=== PATIENT | male | born 1970 | race Hispanic/Latino ===

== ENCOUNTER 2022-07-27 10:42 | Emergency (ER) | payer OTHER ==
--- OUTSIDE RECORDS SUMMARY | 2022-07-27 10:47 | XMS REPORT | Continuity of Care Document ---
:1970 Author Organization [facility] t Address [address] [place] [address] Care Team Providers Name Role Phone PCP, PATIENT DOES NOT HAVE A Primary Care Physician Unavaila JULIANA Marvin Attending Clinician Unavailable Juliana Dias Attending Clinician JULIANA DOBSON Admitting Clinician Unavailable Problems Condition Condition Condition Status Onset Resolution Last Treating Co mments Source Name Details Category Date Date Treatment Clinician Date No known No known Disease Unive rs active active ity of problems problems [facility] Allergies, Adverse Reactions, Alerts Allergy Allergy Status Severity Reaction(s) Onset Inactive Treating Comm ents Source Name Type Date Date Clinician NO KNOWN Drug Active Univers ALLERGIE Class ity of [facility] Social History Social Habit Start Date Stop Date Quantity Comments Source Exposure to 2022-06-26 2022-07-06 Not sure [facility] SARS-CoV-2 (event) 00:00:00 11:32:00 Medica l Branch Sex Assigned At [birth year] [facility] 00:00:00 00:00:00 [facility] [place] Smoking Status Start Date Stop Date Source Tobacco smoking consumption [facility] Branch Medications Ordered Filled Start Stop Current Ordering Indication Dosage Frequency Signature Comments Components Source Medication Medication Date Date Medication? Clinician (SIG) Name Name ketorolac 2021-09 30mg 30 mg, Unive rs (TORADOL) 0-16 - Slow IV ity of injection 16:45: 16:36 [place], [place] 30 mg 00 :00 ONCE, 1 Medical dose, [place] Branch 07/06/22 at 1145, Routine No known 2021-09 No No known Unive rs medications 0-16 medication it y of 11:20: s [address] Vital Signs Vital Name Observation Time Observation Value Comments Source Systolic blood 2022-07-06 16:17:00 156 mm[Hg] [facility] pressure [facility] Diastolic blood 2022-07-06 16:17:00 100 mm[Hg] [facility] Heart rate 2022-07-06 16:17:00 73 /min [facility] Body temperature 2022-07-06 16:17:00 37.06 Carmita [facility] Respiratory rate 2022-07-06 16:17:00 18 /min [facility] Body weight 2022-07-06 16:17:00 140.615 kg [facility] Oxygen saturation in 2022-07-06 16:17:00 99 /min [facility] Arterial blood by [facility] Pulse oximetry Branch Procedures Procedure Date / Time Performed Performing Clinician Alexus e CT ABDOMEN PELVIS WO 2022-07-06 16:45:55 Juliana Dobson [facility] CONTRAST [facility] LIPASE 2022-07-06 16:25:00 Juliana Dobson [facility] COMP. METABOLIC PANEL 2022-07-06 16:25:00 Juliana Dobson [facility] ([id number]) [facility] CBC WITH DIFF 2022-07-06 16:25:00 Juliana Dobson [facility] URINALYSIS 2022-07-06 16:25:00 Juliana Dobson [facility] NOTICE OF PRIVACY 2022-07-06 16:08:39 Doctor Unassigned, No [facility] CONSENT/REFUSAL FOR 2022-07-06 16:07:48 [facility] [place] TREATMENT Encounters Start End Encounter Admission Attending Care Care Encounter Source Date/Time Date/Time Type Type Clinicians Facility Department ID 2022-07-06 2022-07-06 Emergency X RALPH DOBSON ERT [id number] Univers 11:22:00 12:49:00 JULIANA child [facility] 2022-07-06 2022-07-06 Emergency RALPH Dobson [id number] Univers 11:22:00 12:49:00 Juliana DUBOSE [id number] i ty [facility] [id number] [facility] [id number] [facility] 084 Branch Results Test Description Test Time Test Comments Results Result Comments Source Complete Metabolic Panel 2022-07-06 17:00:17 Test Item Value Reference Range Interpretation Comme nts NA (test code = 1957403027) 137 mmol/L 135-145 K (test code = 5579170251) 4.7 mmol/L 3.5-5 CL (test code = 9679441009) 98 mmol/L 98-108 CO2 TOTAL (test code = 28 mmol/L 23-31 0675412620) AGAP (test code = 3613498939) 2-16 BUN (test code = 3256358644) 12 mg/dL 7-23 GLUCOSE (test code = 2594686187) 100 mg/dL 70-110 CREATININE (test code = 1.09 mg/dL 0.6-1.25 6755997874) TOTAL BILI (test code = 0.6 mg/dL 0.1-1.7 8577689253) CALCIUM (test code = 9259911947) 9.6 mg/dL 8.6-10.6 T PROTEIN (test code = 7.9 g/dL 6.3-8.2 9803740120) ALBUMIN (test code = 3025323484) 4.9 g/dL 3.5-5 ALK PHOS (test code = 8817871730) 88 U/L 34-122 ALTv (test code = 1742-6) 31 U/L 5-50 AST(SGOT) (test code = 38 U/L 13-40 6524870743) eGFR (test code = 4417824116) mL/min/1.73m2 PAUL (test code = PAUL) Association of Glomerular Filtration Rate (GFR) and Staging of Kidney Disease* + +--------- + ----+| GFR (mL/min/1.73 m2) ?| With Kidney Damage ?| ?Without Kidney Damage+ +--- + +| ?>90 ?| ?Stage one ?| ? Normal ?+ +-------- + -----+| ?60-89 ?| ?Stage two ?| ? Decreased GFR ? + +--------- + ----+| ?30-59 ?| ?Stage three ?| ? Stage three ? + +--------- + ----+| ?15-29 ?| ?Stage four ? | ? Stage four ?+ +-------- + -----+| ?<15 (or dialysis) ? ?| ?Stage five ? | ? Stage five ?+ +-------- + -----+ *Each stage assumes the associated GFR level has been in effect for at least three months. ?Stages 1 to 5, with or without kidney disease, indicate chronic kidney disease. Notes: Determination of stages one and two (with eGFR >59mL/min/1.73 m2) requires estimation of kidney damage for at least three months as defined by structural or functional abnormalities of the kidney, manifested by either:Pathological abnormalities or Markers of kidney damage (including abnormalities in the composition of the blood or urine or abnormalities in imaging tests). [facility], [id number] 16:59:57 Test Item Value Reference Range Interpretation Comments LIPASE (test code = 0543335261) 48 U/L 0-220 Lab Interpretation (test code = Normal 70494-2) [facility] with [id number] 16:47:57 Test Item Value Reference Range Interpretation Comments WBC (test code = See_Comment [Automated 0290-2) message] The sy stem which generated this result transmitted reference range : 4.20 - 10.70 10*3/?L. The reference range was not used to interpret this result as normal/abnormal . RBC (test code = See_Comment H [Automated 838-8) message] The sy stem which generated this result transmitted reference range : 4.26 - 5.52 10*6/?L. The reference range was not used to interpret this result as normal/abnormal . HGB (test code = 16.4 g/dL 12.2-16.4 718-7) HCT (test code = 49.5 % 38.4-49.3 H 4544-3) MCV (test code = 87.0 fL 81.7-95.6 787-2) MCH (test code = 28.8 pg 26.1-32.7 785-6) MCHC (test code = 33.1 g/dL 31.2-35 786-4) RDW-SD (test code = 45.4 fL 38.5-51.6 08550-7) RDW-CV (test code = 14.2 % 12.1-15.4 788-0) PLT (test code = See_Comment [Automated 777-3) message] The sy stem which generated this result transmitted reference range : 150 - 328 10*3/ ?L. The reference r anuradha was not used to interpret this result as normal/abnormal . MPV (test code = 10.3 fL 9.8-13 99831-1) NRBC/100 WBC (test See_Comment [Automat ed code = 0816276932) message] The system which generated this result transmitted reference range : 0.0 - 10.0 /100 WBCs. The refer ence range was not u sed to interpret th is result as normal/abnormal . NRBC x10^3 (test code See_Comment [Auto mated = 1740740478) message] The s ystem which generated this result transmitted reference range : 10*3/?L. The reference range was not used to interpret this result as normal/abnormal . GRAN MAT (NEUT) % 61.9 % (test code = 770-8) IMM GRAN % (test code 0.50 % = 6740938665) LYMPH % (test code = 22.5 % 736-9) MONO % (test code = 11.8 % 5905-5) EOS % (test code = 2.7 % 713-8) BASO % (test code = 0.6 % 706-2) GRAN MAT x10^3(ANC) 4.08 10*3/uL 1.99-6.95 (test code = 2663258139) IMM GRAN x10^3 (test 0.03 10*3/uL 0-0.06 code = 9194988406) LYMPH x10^3 (test code 1.48 10*3/uL 1.09-3.23 = 731-0) MONO x10^3 (test code 0.78 10*3/uL 0.36-1.02 = 742-7) EOS x10^3 (test code = 0.18 10*3/uL 0.06-0.53 711-2) BASO x10^3 (test code 0.04 10*3/uL 0.01-0.09 = 704-7) Lab Interpretation Abnormal (test code = 82147-0) [facility]"
[2022-07-27 12:04] LABS: Urine Blood Negative (Negative); Urine Glucose Negative (Negative); Urine Protein 2+ (Negative); Urine Specific Gravity >=1.030 (1.005-1.030); Urine pH 5.5 (5.0-7.0)
[2022-07-27 13:13] LABS: Barbiturates NEGATIVE (NEGATIVE); Benzodiazepines NEGATIVE (NEGATIVE); Cocaine NEGATIVE (NEGATIVE); METHAMPHETAM NEGATIVE (NEGATIVE); Methadone NEGATIVE (NEGATIVE); Opiates NEGATIVE (NEGATIVE); Phencyclidine NEGATIVE (NEGATIVE); THC Cannibis NEGATIVE (NEGATIVE)
--- NOTE | 2022-07-27 13:47 | EDPHYS ---
Physician Documentation [facility] Name: Missael Quinteros Age: 51 yrs Sex: Male : 1970 Arrival Date: 07/27/2022 Time: 10:46 Bed 17 Private MD: ED Physician Harshil Campos HPI: 07/27 13:46 This 51 yrs old Male presents to ER via Ambulatory with complaints of Allergic ms3 Reaction to Meds, Weakness. 13:46 The patient presents to the emergency department with dizziness. Onset: The ms3 symptoms/episode began/occurred this morning. Context: Began after taking new CBD oil. Associated signs and symptoms: Pertinent positives: dizziness, blurred vision. Severity of symptoms: At their worst the symptoms were moderate in the emergency department the symptoms have improved. Patient's baseline: Neuro: alert and fully oriented, Motor: no deficits, Ambulation: walks without assistance, Speech: normal. Current symptoms: Mild dizziness. Historical: - Allergies: 11:00 No Known Allergies; ss - PMHx: 11:00 Hypertensive disorder; DM; ss - PSHx: 11:00 None; ss - Immunization history:: Client reports receiving the 2nd dose of the Covid vaccine. - Social history:: Smoking status: Patient reports the use of cigarette tobacco products, cigars. ROS: 13:46 Constitutional: Negative for fever, and chills. Neck: Negative for injury, pain, and ms3 swelling, Cardiovascular: Negative for chest pain, and palpitations. Respiratory: Negative for shortness of breath, cough, wheezing, and pleuritic chest pain, Abdomen/GI: Negative for abdominal pain, nausea, vomiting, diarrhea, and constipation, MS/Extremity: Negative for injury and deformity, Skin: Negative for injury, rash, and discoloration. 13:46 Neuro: Positive for dizziness. Exam: 13:46 Constitutional: This is a well developed, well nourished patient who is awake, alert, ms3 and in no acute distress. Head/Face: Normocephalic, atraumatic. Neck: Trachea midline, no cervical lymphadenopathy. Supple, full range of motion without nuchal rigidity, or vertebral point tenderness. No Meningismus. Chest/axilla: Normal chest wall appearance and motion. Nontender with no deformity. Cardiovascular: Regular rate and rhythm with a normal S1 and S2. No gallops, murmurs, or rubs. Normal PMI, no JVD. No pulse deficits. Respiratory: Lungs have equal breath sounds bilaterally, clear to auscultation and percussion. No rales, rhonchi or wheezes noted. No increased work of breathing, no retractions or nasal flaring. Abdomen/GI: Soft, non-tender, with normal bowel sounds. No distension or tympany. No guarding or rebound. No evidence of tenderness throughout. Skin: Warm, dry with normal turgor. Normal color with no rashes, no lesions, and no evidence of cellulitis. MS/ Extremity: Pulses equal, no cyanosis. Neurovascular intact. Full, normal range of motion. Neuro: Awake and alert, GCS 15, oriented to person, place, time, and situation. Cranial nerves II-XII grossly intact. Motor strength 5/5 in all extremities. Sensory grossly intact. Cerebellar exam normal. Normal gait. Vital Signs: 10:58 BP 128 / 85; Pulse 96; Resp 16; Temp 98.0(TE); Pulse Ox 97% on R/A; Weight 154.22 kg; ss Height 6 ft. 0 in. (182.88 cm); Pain 0/10; 12:00 BP 113 / 77; Pulse 89; Resp 19; Pulse Ox 99% on R/A; em6 13:30 BP 109 / 73; Pulse 83; Resp 14; Pulse Ox 100% on R/A; em6 10:58 Body Mass Index 46.11 (154.22 kg, 182.88 cm) ss MDM: 11:41 Patient medically screened. ms3 13:46 Data reviewed: vital signs, nurses notes, lab test result(s), and as a result, I will ms3 discharge patient. Counseling: I had a detailed discussion with the patient and/or guardian regarding: the historical points, exam findings, and any diagnostic results supporting the discharge/admit diagnosis, lab results, the need for outpatient follow up, to return to the emergency department if symptoms worsen or persist or if there are any questions or concerns that arise at home. ED course: Discussed labs with patient. Patient to follow-up with primary care physician in 2 to 3 days. Patient understands and agrees with plan. All questions were answered. Return precautions discussed include worsening symptoms, or any other concerns. On reevaluation patient symptoms improved, alert and oriented x4, no apparent distress, nontoxic, ambulatory in the emergency department. 07/27 11:41 Order name: Urine Drug Screen; Complete Time: 13:33 ms3 07/27 12:04 Order name: Urine Dipstick-Ancillary; Complete Time: 12:45 EDMS Administered Medications: No medications were administered Disposition Summary: 07/27/22 13:46 Discharge Ordered Location: Home ms3 Condition: Stable ms3 Diagnosis - Lightheaded ms3 - Medication reaction ms3 Followup: ms3 - With: Fabián Bradshaw, DO - When: 2 - 3 days - Reason: Recheck today's complaints Discharge Instructions: - Discharge Summary Sheet ms3 - Dizziness, Doct-ka-Adcx ms3 Forms: - Medication Reconciliation Form ms3 - Thank You Letter ms3 - Antibiotic Education ms3 - Prescription Opioid Use ms3 Signatures: Dispatcher [employer] Laurie Miller RN RN Harshil Pedraza DO DO ms3
--- NOTE | 2022-07-27 13:47 | ER ---
Nurse's Notes [facility] Name: Missael Quinteros Age: 51 yrs Sex: Male : 1970 Arrival Date: 07/27/2022 Time: 10:46 Bed 17 Private MD: Diagnosis: Lightheaded;Medication reaction Presentation: 07/27 10:58 Chief complaint: Patient states: "I got some CBD oil and put it under my tongue and it ss is making me feel lightheaded, and it has been progressing ever since I took it. This is a new one. They have never done this before. I also have cotton mouth and lethargic.". Coronavirus screen: Client denies travel out of the [place] in the last 14 days. Ebola Screen: Patient denies exposure to infectious person. Patient denies travel to an Ebola-affected area in the 21 days before illness onset. Initial Sepsis Screen: Does the patient meet any 2 criteria? No. Patient's initial sepsis screen is negative. Does the patient have a suspected source of infection? No. Patient's initial sepsis screen is negative. Risk Assessment: Do you want to hurt yourself or someone else? Patient reports no desire to harm self or others. Onset of symptoms was July 27, 2022. 10:58 Method Of Arrival: Ambulatory ss 10:58 Acuity: BOBBY 3 ss Historical: - Allergies: 11:00 No Known Allergies; ss - PMHx: 11:00 Hypertensive disorder; DM; ss - PSHx: 11:00 None; ss - Immunization history:: Client reports receiving the 2nd dose of the Covid vaccine. - Social history:: Smoking status: Patient reports the use of cigarette tobacco products, cigars. Screenin:04 Abuse screen: Denies threats or abuse. Nutritional screening: No deficits noted. em6 Tuberculosis screening: No symptoms or risk factors identified. 11:15 Fall Risk Gait- Weak (10 pts.). Mental Status- Oriented to own ability (0 pts). Total em6 Venegas Fall Scale indicates No Risk (0-24 pts). Assessment: 11:12 General: Appears distressed, uncomfortable, Behavior is cooperative, "patient states em6 taking cbc drops today at 1000 and started feeling weak, dizziness. he states "it feels like if Im drunk". Pain: Denies pain. Neuro: Level of Consciousness is awake, alert, obeys commands, Oriented to person, place, time, situation, Reports dizziness, weakness. Cardiovascular: Heart tones present Patient's skin is warm and dry. Respiratory: Airway is patent Respiratory effort is even, unlabored, Respiratory pattern is regular, symmetrical, Breath sounds are clear bilaterally. GI: No signs and/or symptoms were reported involving the gastrointestinal system. : No signs and/or symptoms were reported regarding the genitourinary system. EENT: No signs and/or symptoms were reported regarding the EENT system. Derm: No signs and/or symptoms reported regarding the dermatologic system. Musculoskeletal: Circulation, motion, and sensation intact. Range of motion: intact in all extremities. 12:15 Reassessment: Patient appears in no apparent distress at this time. No changes from em6 previously documented assessment. Patient and/or family updated on plan of care and expected duration. Pain level reassessed. Patient is alert, oriented x 3, equal unlabored respirations, skin warm/dry/pink. 13:15 Reassessment: Patient appears in no apparent distress at this time. No changes from em6 previously documented assessment. Patient and/or family updated on plan of care and expected duration. Pain level reassessed. Patient is alert, oriented x 3, equal unlabored respirations, skin warm/dry/pink. Vital Signs: 10:58 BP 128 / 85; Pulse 96; Resp 16; Temp 98.0(TE); Pulse Ox 97% on R/A; Weight 154.22 kg; ss Height 6 ft. 0 in. (182.88 cm); Pain 0/10; 12:00 BP 113 / 77; Pulse 89; Resp 19; Pulse Ox 99% on R/A; em6 13:30 BP 109 / 73; Pulse 83; Resp 14; Pulse Ox 100% on R/A; em6 10:58 Body Mass Index 46.11 (154.22 kg, 182.88 cm) ED Course: 10:46 Patient arrived in ED. rg4 11:00 Triage completed. ss 11:00 Arm band placed on right wrist. ss 11:03 Harshil Campos DO is Attending Physician. ms3 11:04 Ellen Yanez, RN is Primary Nurse. em6 11:05 Bed in low position. Call light in reach. Side rails up X2. Pulse ox on. NIBP on. Warm em6 blanket given. 12:03 Urine Drug Screen Sent. em6 12:30 Urine Drug Screen Sent. em6 13:43 No provider procedures requiring assistance completed. em6 13:44 Fabián Bradshaw DO is Referral Physician. ms3 13:52 Patient did not have IV access during this emergency room visit. em6 Administered Medications: No medications were administered Medication: 13:42 VIS not applicable for this client. em6 Outcome: 13:46 Discharge ordered by MD. ms3 13:52 Discharged to home ambulatory. em6 13:52 Condition: stable 13:52 Discharge instructions given to patient, Instructed on discharge instructions, follow up and referral plans. Demonstrated understanding of instructions, follow-up care. 13:52 Patient left the ED. em6 Signatures: Laurie Saleem, RN RN Ivonne Browne 4 Harshil Campos DO DO ms3 Ellen Yanez, RN RN em6 Corrections: (The following items were deleted from the chart) 11:01 10:58 BP 128 / 85; Pulse 96bpm; Resp 16bpm; Pulse Ox 94% RA; Temp 98.0F Temporal; ss 154.22 kg; Height 6 ft. 0 in.; BMI: 46.1; Pain 0/10; ss
[2022-07-27 14:25] VITALS: TEMP 98
[2022-07-27 14:28] VITALS: BP 109/73; O2SAT 100
== END 2022-07-27 13:52 | disposition home or self-care (01) ==
LOC: ER 10:42
DX: R42 Dizziness and giddiness (principal); T50.995A Adverse effect of other drugs, medicaments and biological substances, initial encounter; I10 Essential (primary) hypertension; F17.290 Nicotine dependence, other tobacco product, uncomplicated
CPT/HCPCS: 80307; 81003; 99283

== ENCOUNTER 2022-10-30 06:25 | Inpatient (IN) | payer OTHER ==
[2022-10-29 13:42] LABS: Protime INR 1.15
[2022-10-29 13:43] LABS: Absolute Lymphocytes (CBC) 1.5 K/uL (0.7-4.9); Hematocrit 47.2 % (39.6-49.0); Lymphocytes % 24.1 % (15.3-44.8); MCV 87.7 fL (80-100); MPV 8.3 fL (7.6-11.3); RBC Red Blood Cell Count 5.38 M/uL (4.33-5.43)
[2022-10-29 13:45] LABS: Urine Bacteria None Seen /HPF (<20); Urine RBC <5 /HPF (None Seen)
[2022-10-29 13:54] LABS: SARS-CoV-2 Antigen Rapid Res Negative (Negative)
[2022-10-29 13:59] LABS: Albumin 3.9 g/dL (3.4-5.0); Bilirubin Total 0.5 mg/dL (0.2-1.0); Protein, Total 7.5 g/dL (6.4-8.2)
[2022-10-29 14:02] LABS: Specific Gravity 1.012 (1.005-1.030); Urine Bilirubin NEGATIVE (Negative); Urine Blood Negative (Negative); Urine Clarity Clear (Clear); Urine Color Light-Yellow (Yellow); Urine Glucose NEGATIVE (Negative); Urine Protein NEGATIVE (Negative); Urine Urobilinogen Normal (Normal)
[2022-10-30] MEDS ORDERED: CEFAZOLIN SODIUM 2 GM/VIAL ONE (06:53)
[2022-10-30] MEDS ORDERED: NA CHLORIDE 0.9% 0 ML ONE (06:53)
[2022-10-30] MEDS ORDERED: NA CHLORIDE 0.9% 1,000 ML ONE (07:02)
[2022-10-30] MEDS ORDERED: FENTANYL CITR 100 MCG/2 ML ONE ×2 (07:13→10:26)
[2022-10-30] MEDS ORDERED: ROCURONIUM 50 MG/5 ML VIAL IV ONE (07:13)
[2022-10-30] MEDS ORDERED: LIDOCAINE 2% MPF 5 ML VIAL ONE (07:13)
[2022-10-30] MEDS ORDERED: propofoL 200 MG/20 ML VIAL IV ONE (07:13)
[2022-10-30] MEDS ORDERED: ONDANSETRON 4 MG/2 ML VIAL ONE ×2 (07:14→09:41)
[2022-10-30] MEDS ORDERED: VECURONIUM 10 MG/VIAL IV ONE (07:14)
[2022-10-30] MEDS ORDERED: MIDAZOLAM HCL 2 MG/2 ML INJ ONE (07:14)
[2022-10-30] MEDS ORDERED: ACETAMINOPHEN 500 MG TAB ONE (07:22)
[2022-10-30] MEDS ORDERED: HEPA 1000U/500MLS 1,000 UNIT/500 ML BAG IV ONE (07:24)
[2022-10-30] MEDS ORDERED: NS 0.9% VIAL 10 ML ONE (07:24)
--- NOTE | 2022-10-30 07:56 | EKG ---
Test Date: 2022-10-29 Test Time: 13:28:[address] Tech: CMAR MEASUREMENT RESULTS: Intervals: Rate: 75 MD: 146 QRSD: 114 QT: 386 QTc: 431 [place]: P: 32 MD: 146 QRS: -24 T: 36 INTERPRETIVE STATEMENTS: Normal sinus rhythm Low voltage QRS Incomplete right bundle branch block Possible Inferior infarct, age undetermined Abnormal ECG No previous ECG available for comparison Electronically Signed On 10-30-22 07:54:29 ER REGISTRAR by Marcelo Parks
[2022-10-30] MEDS ORDERED: Phenylephrine HCl 10 MG/ML 1 ML VIAL ONE (08:19)
[2022-10-30] MEDS ORDERED: EPHEDRINE SULF 50 MG/ML VIAL ONE (08:51)
[2022-10-30] MEDS ORDERED: NA CHLORIDE 0.9% 2,000 ML ONE (09:21)
[2022-10-30] MEDS ORDERED: dexAMETHasone 4 MG/ML VIAL ONE (09:41)
[2022-10-30] MEDS ORDERED: MORPHINE 10 MG/ML VIAL ONE (11:45)
[2022-10-30] MEDS ORDERED: HYDROMORPHONE HCL 2 MG/ML inj ONE (11:50)
[2022-10-30] MEDS ORDERED: HYDROMORPHONE HCL 0.5 MG/0.5 ML INJ IV PRN (12:37)
[2022-10-30] MEDS ORDERED: GLUCAGON 1 MG/VIAL IM PRN (12:51)
[2022-10-30] MEDS ORDERED: D50W 25 GM/50 ML SYRINGE IV PRN (12:51)
[2022-10-30] MEDS ORDERED: HYDROMORPHONE HCL 1 MG/ML INJ ONE ×2 (12:59→13:15)
--- OUTSIDE RECORDS SUMMARY | 2022-10-30 13:15 | XMS REPORT | Continuity of Care Document ---
:1970 Author Organization [facility] t Address [address] [place] [address] Care Team Providers Name Role Phone PCP, PATIENT DOES NOT HAVE A Primary Care Physician UnavailArmani Almeida Attending Clinician Unavailable JULIANA MILLER Attending Clinician Unavailable Juliana Dias Attending Clinician JULIANA MILLER Admitting Clinician Unavailable Problems Condition Condition Condition Status Onset Resolution Last Treating Co mments Source Name Details Category Date Date Treatment Clinician Date Microscopi Problem Co mmon c [facility] hematuria [facility] [id number] BPH loc w Problem Com mon urin Spirit obs/LUTS [facility] [id number] Right Problem Common renal mass [facility] No known No known Disease Unive rs active active ity of problems problems [facility] Allergies, Adverse Reactions, Alerts Allergy Allergy Status Severity Reaction(s) Onset Inactive Treating Comm ents Source Name Type Date Date Clinician NO KNOWN Drug Active Univers ALLERGIE Class ity of S [facility] Social History Social Habit Start Date Stop Date Quantity Comments Source History of Current Smoker Common Spi rit - Tobacco Use [facility] Sex Assigned At Common Sp radha - [facility] Exposure to 2022-06-26 2022-07-06 Not sure University SARS-CoV-2 00:00:00 11:32:00 [facility] (event) [place] Smoking Status Start Date Stop Date Source Tobacco smoking consumption Univ [facility] Medical unknown Branch Current Smoker 2022-10-10 00:00:00 [facility] nter Medications Ordered Filled Start Stop Current Ordering Indication Dosage Frequency Signature Comments Components Source Medication Medication Date Date Medication? Clinician (SIG) Name Name devynrolac 2021-09- No 30mg 30 mg, Unive rs (TORADOL) 0-16 10-16 Slow IV ity of injection 16:45: 16:36 [place], [place] 30 mg 00 :00 ONCE, 1 Medical dose, On Branch 07/06/22 at 1145, Routine No known 2021-09 No No known Unive rs medications 0-16 medication it y of 11:20: s [place] [id number] Medical Branch Losartan Losartan No 1{table QD Losartan Potassium Potassium t} Potassium 100 MG 100 MG 100 MG Lovastatin Lovastatin No Lovastatin Flomax 0.4 Flomax 0.4 No 1{capsu QD Flomax 0.4 MG MG le} MG hydroCHLORO hydroCHLORO No hydroCHLOR thiazide thiazide Othiazide metFORMIN metFORMIN No 1{table QD metFORMIN HCl 500 MG HCl 500 MG t_with_ HCl 500 MG a_meal} Phentermine Phentermine No 1{capsu QD Phentermin HCl 37.5 MG HCl 37.5 MG le} e HCl 37.5 MG Losartan Losartan No 1{table QD Losartan Potassium Potassium t} Potassium 100 MG 100 MG 100 MG Lovastatin Lovastatin No Lovastatin Flomax 0.4 Flomax 0.4 No 1{capsu QD Flomax 0.4 MG MG le} MG hydroCHLORO hydroCHLORO No hydroCHLOR thiazide thiazide Othiazide metFORMIN metFORMIN No 1{table QD metFORMIN HCl 500 MG HCl 500 MG t_with_ HCl 500 MG a_meal} Phentermine Phentermine No 1{capsu QD Phentermin HCl 37.5 MG HCl 37.5 MG le} e HCl 37.5 MG Vital Signs Vital Name Observation Time Observation Value Comments Source height 2022-10-10 15:00:00 70 [in_i] [facility] weight 2022-10-10 15:00:00 330 [lb_av] [facility] bmi 2022-10-10 15:00:00 47.34 kg/m2 [facility] Systolic blood 2022-07-06 16:17:00 156 mm[Hg] Univer sit of pressure [facility] Diastolic blood 2022-07-06 16:17:00 100 mm[Hg] [facility] Heart rate 2022-07-06 16:17:00 73 /min [facility] Body temperature 2022-07-06 16:17:00 37.06 [facility] Respiratory rate 2022-07-06 16:17:00 18 /min [facility] Body weight 2022-07-06 16:17:00 140.615 kg [facility] Oxygen saturation in 2022-07-06 16:17:00 99 /min [facility] blood by [facility] Pulse oximetry Branch Procedures Procedure Date / Time Performed Performing Clinician Alexus e CT ABDOMEN PELVIS WO 2022-07-06 16:45:55 Juliana Miller [facility] CONTRAST [facility] Branch LIPASE 2022-07-06 16:25:00 Juliana Miller [facility] COMP. METABOLIC PANEL 2022-07-06 16:25:00 Juliana Miller [facility] ([id number]) [facility] [place] CBC WITH DIFF 2022-07-06 16:25:00 Juliana Miller [facility] URINALYSIS 2022-07-06 16:25:00 Juliana Miller [facility] NOTICE OF PRIVACY 2022-07-06 16:08:39 Doctor Unassigned, No [facility] PRACTICES Name [facility] [place] CONSENT/REFUSAL FOR 2022-07-06 16:07:48 Doctor Unassigned, No [facility] DIAGNOSIS AND Name Medical [place] TREATMENT Encounters Start End Encounter Admission Attending Care Care Encounter Source Date/Time Date/Time Type Type Clinicians Facility Department ID 2022-10-10 [facility] [id number] Common 11:56:02 Armani [id number] [facility] 2022-10-15 2022-10-15 (TEL) [facility] [id number] Co mmon 00:00:00 00:00:00 [facility] 2022-10-102022-10-10 OFFICE [facility] [id number] Co mmon 00:00:00 00:00:00 VISIT Spirit ESTAB PT - CHI LEVEL 5 [facility] 2022-07-06 2022-07-06 Emergency X OLYA, [facility] ERT [id number] Univers 11:22:00 12:49:00 JULIANA child of [facility] 2022-07-06 2022-07-06 Emergency [facility] [id number] Univers 11:22:00 12:49:00 [facility] [id number] i ty of [place] [id number] [facility] [id number] [place] [id number] Branch Results Test Description Test Time Test Comments Results Result Comments Source Complete Metabolic Panel 2022-07-06 17:00:17 Test Item Value Reference Range Interpretation Comme nts NA (test code = 1471237488) 137 mmol/L 135-145 K (test code = 6566884373) 4.7 mmol/L 3.5-5 CL (test code = 6838316375) 98 mmol/L 98-108 CO2 TOTAL (test code = 28 mmol/L 23-31 3538968639) AGAP (test code = 7937345428) 2-16 BUN (test code = 5075174536) 12 mg/dL 7-23 GLUCOSE (test code = 0108619041) 100 mg/dL 70-110 CREATININE (test code = 1.09 mg/dL 0.6-1.25 1033737639) TOTAL BILI (test code = 0.6 mg/dL 0.1-1.8 6927949231) CALCIUM (test code = 6587097199) 9.6 mg/dL 8.6-10.6 T PROTEIN (test code = 7.9 g/dL 6.3-8.2 3232451184) ALBUMIN (test code = 2317857644) 4.9 g/dL 3.5-5 ALK PHOS (test code = 2758913245) 88 U/L 34-122 ALTv (test code = 1742-6) 31 U/L 5-50 AST(SGOT) (test code = 38 U/L 13-40 7942394042) eGFR (test code = 3859389442) mL/min/1.73m2 PAUL (test code = PAUL) Association [...] or urine or abnormalities in imaging tests). [facility] [id number] 16:59:57 Test Item Value Reference Range Interpretation Comments LIPASE (test code = 9772914066) 48 U/L 0-220 Lab Interpretation (test code = Normal 23345-4) [facility] with [id number] 16:47:57 Test Item Value Reference Range Interpretation Comments WBC (test code = See_Comment [Automated 9755-2) message] The sy stem which generated this result transmitted reference range : 4.20 - 10.70 10*3/?L. The reference range was not used to interpret this result as normal/abnormal . RBC (test code = See_Comment H [Automated 822-5) message] The sy stem which generated this [...] RDW-SD (test code = 45.4 fL 38.5-51.6 86679-2) RDW-CV (test code = 14.2 % 12.1-15.4 788-0) PLT (test code = See_Comment [Automated 777-3) message] The sy stem which generated this result transmitted reference range : 150 - 328 10*3/ ?L. The reference r anuradha was not used to interpret this result as normal/abnormal . MPV (test code = 10.3 fL 9.8-13 62401-4) NRBC/100 WBC (test See_Comment [Automat ed code = 5751601323) message] The system which generated this result transmitted reference range : 0.0 - 10.0 /100 WBCs. The refer ence range was not u sed to interpret th is result as normal/abnormal . NRBC x10^3 (test code See_Comment [Auto mated = 8625372790) message] The s ystem which generated this result transmitted reference range : 10*3/?L. The reference range was not used to interpret this result as normal/abnormal . GRAN MAT (NEUT) % 61.9 % (test code = 770-8) IMM GRAN % (test code 0.50 % = 8216181976) LYMPH % (test code = 22.5 % 736-9) MONO % (test code = 11.8 % 5905-5) EOS % (test code = 2.7 % 713-8) BASO % (test code = 0.6 % 706-2) GRAN MAT x10^3(ANC) 4.08 10*3/uL 1.99-6.95 (test code = 7876212751) IMM GRAN x10^3 (test 0.03 10*3/uL 0-0.06 code = 5802305901) LYMPH x10^3 (test code 1.48 10*3/uL 1.09-3.23 = 731-0) MONO x10^3 (test code 0.78 10*3/uL 0.36-1.02 = 742-7) EOS x10^3 (test code = 0.18 10*3/uL 0.06-0.53 711-2) BASO x10^3 (test code 0.04 10*3/uL 0.01-0.09 = 704-7) Lab Interpretation Abnormal (test code = 49125-8) [facility]"
[2022-10-30] MEDS ORDERED: D10W 125 ML IV PRN (13:27)
[2022-10-30] MEDS: HYDROMORPHONE HCL 1 MG/ML INJ IV PRN ×3 (14:03→20:57)
[2022-10-30] MEDS: Ringers Lactate 1,000 ML IV SCH ×2 (14:04→20:57)
--- NOTE | 2022-10-30 15:44 | OP ---
Surgeon: JONATHAN HOGAN Preoperative Diagnosis: Right renal mass with superior posterior extension and multiple parasitic ve ssels. Postoperative Diagnosis: Right renal mass with superior posterior extension and multiple parasitic v essels. Principal Procedure: Laparoscopic right radical nephrectomy. Indication For Procedure: Mr. Quinteros is a 52-year-old gentleman with type 2 diabetes, who had some fl ank pain on the left side who went to the emergency department for evaluation and was incidentally fo und to have a right 6.5 x 6.3 cm renal mass. He subsequently underwent MRI imaging identifying a het erogeneously enhancing mass with multiple parasitic vessels extending superiorly posteriorly abutting the paraspinous musculature in that region. As a result, he was counseled on the need for a radical nephrectomy and a chest CT was performed without signs of metastatic disease. Since he had no other abdominal or pelvic lymphadenopathy, we proceeded with surgical plan recognizing the potential benef it and need for adjuvant therapy with Keytruda. Procedure In Detail: The patient was consented in the preoperative holding area before being transfe rred to the operative suite where general anesthesia was induced. He was given Ancef 2 g IV antimicr obial prophylaxis and pneumo boots were provided for DVT prophylaxis. He was given an OG tube and an arterial line was placed given the high risk of bleeding from the parasitic vessels. He underwent a degree of hemodilution by giving him a couple of liters of fluid before the procedure even began, an d he was placed in the modified flank position with his right side up and a gel roll beneath his back side as well as an axillary roll beneath his left axilla. He was padded and secured to the table ext ensively given his build and obesity. A urethral Chaves catheter was placed into his bladder prior to positioning. There was clear yellow urine draining. His abdomen was shaved, prepped with ChloraPre p, and draped in standard fashion. The case was begun using a Veress needle to gain intraperitoneal access. Appropriate insufflation pressures were obtained on low-flow, and then we increased to high flow and increased the pressure to 15 mmHg. Given his habitus and extensive rightward shift, trocar positions was determined to be necessary to better approximate targeting the kidney laparoscopically and a standard 3-arm trocar approach was undertaken. Initially, entry into the abdomen was obtained via the putative right upper quadrant trocar site just inferior to the costal margin. Once we entere d the abdomen under using the visual trocar and confirmed no intraabdominal injury from the Veress an d appropriate insufflation of the peritoneum, the Veress needle was removed, and the remaining roboti c trocars were placed under direct vision with 12 mm trocars placed in the right upper quadrant, more inferiorly and in the right lower quadrant lateral to the umbilicus laterally. Marcaine was used pr ior to incising the skin. We then exchanged the 5 mm trocar for a 12 mm trocar given the complexity of the resection planned. An additional 5 mm trocar was then placed inferior to the left costal cristhian in on the left of the falciform ligament to ultimately place a locking grasper as a liver retractor. The liver was successfully elevated, and the attachments between the liver and the kidney were divid ed sharply using the ligature. With the liver adequately elevated, we then rotated the patient until the modified flank was essentially in of full flank position and began dissection by dividing the li ne of Toldt. This was done down into the pelvis and the colon was released off the anterior surface of the kidney. We immediately encountered some parasitic vessels and had to manage them at each step along the way, even just releasing the colon from the anterior surface of the kidney. Once the colo n had been mostly reflected, we then visualized the duodenum, which we were able to kocherize without going anywhere near it due to extensive fat deposition and ability to simply brush it out of the way . Again, parasitic vessels were encountered and were sharply ligated and divided using ligature. At this point, we were able to visualize the renal vein and then the IVC and we traced down the IVC to the gonadal vessel was visualized. I then entered the tissue overlying the gonadal vessel and visual ized the ureter. I was able to then dissect posteriorly onto the surface of the psoas, leaving the p soas fascia intact, and then progressed toward the hilum superiorly taking care to divide and ligate using the ligature any and all vessels and parasitics encountered along the way. Care was taken to a void accidentally sparing any parasitic vessels posterolaterally. Once we reached the renal vein, I was then able to dissect the fat and tissue from around the renal artery until it was visible distinc t from the vein. I was then able to create a space between the artery and the vein and then using a PRIYANKA stapler with a 45 mm vascular load, the renal artery was ligated and divided successfully. I the n utilized a second PRIYANKA stapler to ligate and divide the renal vein, and then continued the dissectio n posteriorly and superiorly, sparing the adrenal as it was uninvolved since the tumor was posterior, lateral, superior. I continued the dissection superiorly, dividing the peritoneum and then the gopal chments between the kidney and the liver, taking care to ligate and divide all parasitics carefully b efore dividing. Continue the dissection until the sidewall was reached superiorly and then continued to release the peritoneum laterally. I then turned my attention to the tail of Gerota's and identif ied the ureter, which was then clipped with 3 clips down and 1 clip up before dividing the intervenin g ureter using the ligature. The tail of Gerota's was then divided and then I was able to ligate and divide all the remaining tissue leaving all of the fat and fascia of Gerota's on the surface of the kidney until the sidewall and musculature was visible laterally and posteriorly and I was to able to take this superiorly until I had joined with the prior superior upper pole dissection. I then graspe d the kidney again from the superior most direction was able to divide a few more attachments for the kidney was completely released. I then utilized 0 PDS suture with a Ward-Mary closure of each of the 12 mm trocar sites before reinserting the trocars. I then marked an incision approximately 8 cm in length in the infraumbilical region and instilled this with Marcaine subcutaneously. I then d ivided this with a 15 blade and the subcutaneous tissues and fat and fascia with electrocautery. Onc e the true fascia was identified, it was then divided with heavy Hull scissors and the posterior mireles th was similarly divided until the peritoneum was encountered and opened. I then turned off insuffla tion. Of note, insufflation for the entire working portion of the case once the trocars were placed in was at 12 mmHg instead of 15. I then reached into the abdomen and navigated and found the kidney, which I had marked using a locking grasper via the trocars. I was then able to successfully deliver the very large tumor out of the incision and then survey the specimen removed. There was clear tiss ues surrounding the mass posteriorly without any evident tumor or visibility beyond the tissue and th e fat and fascia dissected. As a result, I was pleased with the resection and this was delivered for pathologic analysis. I then closed his lower midline incision using a #1 looped PDS in a running fa shion. Once closed, I then irrigated the subcutaneous tissues and reapproximated them using 3-0 Vicr yl. We then re-insufflated the abdomen and decreased the pressure to 8 mmHg while assessing for any bleeding. The artery and vein were visible and there was no bleeding, and the resection site was exc ellent. As a result, the liver retractor was removed, the Ward-Mary closures were tied down, a nd his abdomen was desufflated of the carbon dioxide gas before removal of the camera port site and t he Ward-Mary closure was completed. We then irrigated all of the incisions again and reapproxi mated the skin using 4-0 Monocryl before sealing it with Dermabond. The patient was then taken out o f the modified flank position, awakened from general anesthesia, transferred to a stretcher, and then transferred to the recovery room in good condition. Complications: None. Discharge Disposition: He will be standard postoperative radical nephrectomy pathway and will be ant icipated for discharge likely tomorrow. RYLAN/LASHAWN Voice ID: [id number] Report ID: [id number]
[2022-10-30] MEDS: INSULIN -REGULAR HUMAN 50 UNIT/0.5 ML ML SQ SCH ×2 (16:22→20:58)
[2022-10-30] MEDS: HEPARIN 5000 UNIT/ML 1 ML VIAL SQ SCH (17:57)
[2022-10-31] MEDS: HYDROMORPHONE HCL 1 MG/ML INJ IV PRN ×2 (00:57→04:35)
[2022-10-31] MEDS: HEPARIN 5000 UNIT/ML 1 ML VIAL SQ SCH ×3 (00:58→17:14)
[2022-10-31] MEDS: Ringers Lactate 1,000 ML IV SCH ×3 (04:45→19:56)
[2022-10-31 04:58] LABS: Lymphocytes % 8.7 % (15.3-44.8); MCV 88.4 fL (80-100); MPV 8.2 fL (7.6-11.3); RBC Red Blood Cell Count 4.87 M/uL (4.33-5.43)
[2022-10-31 05:12] LABS: Potassium 4.2 mmol/L (3.5-5.1)
[2022-10-31] MEDS: INSULIN -REGULAR HUMAN 50 UNIT/0.5 ML ML SQ SCH ×4 (07:30→19:33)
[2022-10-31] MEDS: hydroCHLOROthiazide 25 MG TAB PO SCH (08:39)
[2022-10-31] MEDS: LOSARTAN POTASSIUM 50 MG TABLET PO SCH (08:39)
[2022-10-31] MEDS: MAGNESIUM HYDROXIDE 8% 30 ML PO SCH (08:40)
[2022-10-31] MEDS: BISACODYL 10 MG RECTAL SUPP PR SCH (08:41)
[2022-10-31] MEDS ORDERED: KETOROLAC 30 MG/ML INJ IV PRN (09:09)
--- NOTE | 2022-10-31 16:37 | P.PN ---
Subjective Date of Service: 10/31/22 Chief Complaint: s/p Right Lap Radical Nephrectomy POD#1 Doing fine except for complaints of incisional pain with movement and coughing. He is also been reticent to perform incentive spirometry because of pain with deep breathing. As of this morning, he has not gotten out of bed despite admonishment's by nursing. His pain was being controlled. He also refused the suppository ordered to promote bowel motility despite my counseling him this morning of its benefit. Later in the afternoon, the patient had been gotten out of bed to a chair, and apparently he went to sit on the toilet to try to have a bowel movement or passed flatus, and in some aspect of that activity, there was some pulling on the catheter resulting in gross hematuria. Physical Examination - Vital Signs Temperature: 97.4 F Blood Pressure: 168/93 Pulse: 67 Respirations: 18 Pulse Ox (%): 95 - Physical Exam General: Alert, In no apparent distress, Oriented x3 HEENT: Atraumatic, Normocephalic, PERRLA, Mucous membr. moist/pink, EOMI Respiratory: Normal air movement Gastrointestinal: No rebound, No guarding, Distended (Mildly), Tenderness (Appropriate) Musculoskeletal: No tenderness Neurological: Normal speech Urinary: Chaves catheter (In place with clear yellow urine as of 9 AM) - Studies Laboratory Data (last 24 hrs) 10/31/22 04:45: Sodium 134 L, Potassium 4.2, BUN 17, Creatinine 1.57 H, Glucose 126 H 10/31/22 04:45: WBC 11.10 H, Hgb 14.0, Hct 43.0, Plt Count 195 Assessment And Plan - Plan 52-year-old gentleman with hypertension, DM 2 and right renal mass s/p laparoscopic right radical nephrectomy, postoperative day #1. -Out of bed and ambulate 4 times daily. I insisted on this with the patient explaining it was not a marathon nor a splint, but it was important for him to move to decrease the risk of DVT and PE and . -Dulcolax suppository and milk of magnesia -Plan to remove catheter by noon once patient is a chance hopefully to pass flatus. Addendum 4 PM: Patient refused suppository and had yet to pass flatus. He somehow created catheter trauma with gross hematuria developed. Recommended catheter removal and voiding trial. Patient had till 10 PM to void. -Toradol 15 mg IV every 6 hours for incisional pain and to decrease narcotic requirement -Advance diet to diabetic once he passes flatus -Continue LR at 150 cc/h for now Discharge Plan: Home Plan to discharge in: 24 Hours
[2022-10-31] MEDS: KETOROLAC 30 MG/ML INJ IV SCH ×2 (17:00→22:37)
[2022-10-31] MEDS: ONDANSETRON 4 MG/2 ML VIAL IV PRN (20:46)
[2022-11-01] MEDS: HEPARIN 5000 UNIT/ML 1 ML VIAL SQ SCH ×3 (00:30→17:21)
[2022-11-01] MEDS: HYDROMORPHONE HCL 1 MG/ML INJ IV PRN (02:59)
[2022-11-01] MEDS: ONDANSETRON 4 MG/2 ML VIAL IV PRN ×3 (02:59→17:20)
[2022-11-01] MEDS: Ringers Lactate 1,000 ML IV SCH ×4 (02:59→18:26)
[2022-11-01 03:38] LABS: Absolute Lymphocytes (CBC) 0.4 K/uL (0.7-4.9); Lymphocytes % 4.5 % (15.3-44.8); MPV 8.7 fL (7.6-11.3); RBC Red Blood Cell Count 5.23 M/uL (4.33-5.43)
[2022-11-01] MEDS: KETOROLAC 30 MG/ML INJ IV SCH ×2 (05:00→09:59)
[2022-11-01] MEDS: INSULIN -REGULAR HUMAN 50 UNIT/0.5 ML ML SQ SCH ×4 (07:30→19:58)
[2022-11-01] MEDS: MAGNESIUM HYDROXIDE 8% 30 ML PO SCH (09:57)
[2022-11-01] MEDS: hydroCHLOROthiazide 25 MG TAB PO SCH (09:58)
[2022-11-01] MEDS: BISACODYL 10 MG RECTAL SUPP PR SCH (09:58)
[2022-11-01] MEDS: LOSARTAN POTASSIUM 50 MG TABLET PO SCH (09:58)
--- NOTE | 2022-11-01 12:21 | P.PN ---
Subjective Date of Service: 11/01/22 Chief Complaint: s/p Right Lap Radical Nephrectomy POD#2 Subjective: Ambulating Refused suppository yesterday and traumatically tried to remove the Chaves, causing gross hematuria and clots. Catheter removed and he is voiding well now. He continued to refuse the suppository until around 10-11AM today, and so as I arrived, he was sitting on the toilet. He had passed some flatus but not before vomiting some clear slightly bilious fluid. He suggested he was feeling better having passed flatus. He has been ambulating around the hallways now that his incisional pain is better controlled. Physical Examination - Vital Signs Temperature: 98.0 F Blood Pressure: 147/81 Pulse: 72 Respirations: 18 Pulse Ox (%): 94 - Physical Exam General: Alert, Oriented x3, Mild distress (from just having vomited) HEENT: Atraumatic, Normocephalic, PERRLA, Mucous membr. moist/pink, Sclerae nonicteric Respiratory: Normal air movement Gastrointestinal: No tenderness, No rebound, No guarding, Distended Neurological: Normal gait - Studies Laboratory Data (last 24 hrs) 11/01/22 02:52: Sodium 129 L D, Potassium 4.0, BUN 19 H, Creatinine 1.87 H, Glucose 138 H 11/01/22 02:52: WBC 8.90, Hgb 14.9, Hct 46.0, Plt Count 224 Assessment And Plan - Current Problems (Diagnosis) (1) RHONDA (acute kidney injury) Current Visit: Yes Status: Acute (2) Ileus, postoperative Current Visit: Yes Status: Acute - Plan 52-year-old gentleman with hypertension, DM 2 and right renal mass s/p laparoscopic right radical nephrectomy, postoperative day #2, with expected decline in his renal function/RHONDA, suspected erroneous hyponatremia, and delayed return of bowel function/mild ileus - resolving. -Out of bed and ambulating now... continue at least 4 times daily. -continue Dulcolax suppository and milk of magnesia qAM and repeat Dulcolax in PM if distended still. Patient hopefully now appreciates the value of accepting the suppository. -Voiding after catheter removed following attempt to traumatically remove the Chaves yesterday causing gross hematuria. Urine now clear. -hold Toradol 15 mg IV every 6 hours given rise in Cr, but may give PRN c/o incisional pain -Advance diet to diabetic regular for dinner if he continues to pass flatus, not vomit further, and overall improves -Continue LR at 150 cc/h for now -repeat BMP this afternoon with care to void drawing blood above IVF site to reassess suspected hyponatremia but also his renal function. Plan to discharge in: 24 Hours
[2022-11-01 13:00] LABS: Potassium 3.8 mmol/L (3.5-5.1)
[2022-11-01] MEDS: ONDANSETRON 4 MG/2 ML VIAL IV SCH ×2 (14:55→21:04)
[2022-11-01] MEDS: KETOROLAC 30 MG/ML INJ IV PRN (17:21)
[2022-11-01] MEDS ORDERED: BISACODYL 10 MG RECTAL SUPP PR SCH (17:30)
--- NOTE | 2022-11-01 19:50 | RAD REPORT ---
EXAM DESCRIPTION: RAD - Abdomen W Erect - 11/01/2022 7:28 pm CLINICAL HISTORY: post op N/V COMPARISON: Thorax Wo Con dated 10/15/2022; Mri Abdomen W/Wo Cont dated 10/09/2022 FINDINGS: Diffuse colonic and small bowel dilatation. Small bowel centrally measures nearly 5 cm. No acute osseous abnormality.Lung bases not well-visualized.Surgical clips in the right hemiabdomen. IMPRESSION: Diffuse colonic and small bowel dilatation favored to represent represent an ileus.
[2022-11-01] MEDS ORDERED: FUROSEMIDE 20 MG/ 2ML VIAL IV ONE (22:36)
[2022-11-01] MEDS ORDERED: Magnesium Sulfate 2gm IVPB 2 G/50 ML BAG IV ONE (22:36)
[2022-11-01] MEDS ORDERED: POTASSIUM PHOS IN 0.9 % NACL 15 MMOL/250 ML BAG IV ONE ×2 (22:36→23:12)
[2022-11-01] MEDS: NA CHLORIDE 0.9% 1,000 ML IV SCH (23:11)
[2022-11-02] MEDS: HEPARIN 5000 UNIT/ML 1 ML VIAL SQ SCH ×3 (01:21→16:43)
[2022-11-02] MEDS: ONDANSETRON 4 MG/2 ML VIAL IV SCH ×2 (02:58→08:27)
[2022-11-02 03:48] LABS: Potassium 3.6 mmol/L (3.5-5.1)
[2022-11-02] MEDS: NA CHLORIDE 0.9% 1,000 ML IV SCH ×4 (06:13→22:54)
[2022-11-02] MEDS: INSULIN -REGULAR HUMAN 50 UNIT/0.5 ML ML SQ SCH ×4 (07:30→21:00)
[2022-11-02] MEDS: hydroCHLOROthiazide 25 MG TAB PO SCH (08:26)
[2022-11-02] MEDS: LOSARTAN POTASSIUM 50 MG TABLET PO SCH (08:26)
[2022-11-02] MEDS: MAGNESIUM HYDROXIDE 8% 30 ML PO SCH (08:26)
[2022-11-02] MEDS: BISACODYL 10 MG RECTAL SUPP PR SCH (08:27)
--- NOTE | 2022-11-02 13:04 | P.PN ---
Subjective Date of Service: 11/02/22 Chief Complaint: s/p Right Lap Radical Nephrectomy POD#3 Subjective: Ambulating, Improving He has been having several liquid BMs about every 2-3 hours since around 11PM/MN last night, and he is feeling better. He does still have some hiccups and belching, but he feels less bloated today. He has eaten some jello and tolerated it well. He denies any vomiting since yesterday. Physical Examination - Vital Signs Temperature: 98.8 F Blood Pressure: 144/76 Pulse: 68 Respirations: 18 Pulse Ox (%): 94 - Physical Exam General: Alert, In no apparent distress, Oriented x3 HEENT: Atraumatic, Normocephalic, Mucous membr. moist/pink Respiratory: Normal air movement Gastrointestinal: Soft and benign, Non-distended, No tenderness, No rebound, No guarding Musculoskeletal: No tenderness Integumentary: No breakdown (Incisions C/D/I and lower midline incision without any erythema or crepitus, also with less serosanguinous seepage compared to yesterday.), No tenderness/swelling, No erythema, No warmth, No cyanosis Neurological: Normal gait, Normal speech - Studies Laboratory Data (last 24 hrs) 11/02/22 02:48: Sodium 131 L, Potassium 3.6, BUN 20 H, Creatinine 1.52 H, Glucose 122 H 11/01/22 12:41: Sodium 131 L, Potassium 3.8, BUN 19 H, Creatinine 1.75 H, Glucose 139 H Assessment And Plan - Current Problems (Diagnosis) (1) RHONDA (acute kidney injury) Onset Date: ~10/31/22 Current Visit: Yes Status: Acute (2) Ileus, postoperative Onset Date: ~11/01/22 Current Visit: Yes Status: Acute - Plan 52-year-old gentleman with hypertension, DM 2 and right renal mass s/p laparoscopic right radical nephrectomy, postoperative day #3, with expected decline in his renal function/RHONDA, mild hyponatremia, and post-op ileus - resolving. -continue to ambulate QID and PRN. -may discontinue Dulcolax and MOM as long as having regular loose stools. Will make PRN -Toradol 15 mg IV every 6 hours PRN -renal function back to post-op level - new baseline? -Advance diet to diabetic regular for dinner if he continues to improve with no further vomiting -Continue NS at 100 cc/h for now -repeat BMP as MgSO4, KPO4 were not complete at time of 2AM blood draw. -If feeling better - no N/V, tolerating diabetic regular dinner, will HLIVFs, give Tramadol 50mg PO q8h PRN pain, and patient may be discharged tonight or tomorrow AM Time Spent Managing PTS Care (In Minutes): 45
[2022-11-02] MEDS ORDERED: TRAMADOL 37.5mg/APAP 325mg PER TAB PO PRN (13:24)
[2022-11-02] MEDS ORDERED: POLYETHYL GLY 3350 17 GM/DOSE PO PRN (13:24)
[2022-11-02 14:47] LABS: Potassium 3.5 mmol/L (3.5-5.1)
[2022-11-02] MEDS: ONDANSETRON 4 MG/2 ML VIAL IV PRN (16:43)
[2022-11-02] MEDS ORDERED: BISACODYL 10 MG RECTAL SUPP PR ONE (21:54)
[2022-11-02] MEDS: KETOROLAC 30 MG/ML INJ IV PRN (22:18)
[2022-11-03] MEDS: HEPARIN 5000 UNIT/ML 1 ML VIAL SQ SCH ×3 (01:23→17:44)
[2022-11-03] MEDS: ONDANSETRON 4 MG/2 ML VIAL IV PRN ×2 (04:00→12:48)
[2022-11-03] MEDS: INSULIN -REGULAR HUMAN 50 UNIT/0.5 ML ML SQ SCH ×4 (07:30→21:00)
[2022-11-03] MEDS: hydroCHLOROthiazide 25 MG TAB PO SCH (08:52)
[2022-11-03] MEDS: LOSARTAN POTASSIUM 50 MG TABLET PO SCH (08:52)
--- NOTE | 2022-11-03 12:43 | P.PN ---
Subjective Date of Service: 11/03/22 Chief Complaint: s/p Right Lap Radical Nephrectomy POD#4 Subjective: Worsening After having had several liquid BMs yesterday and beginning to feel better, yesterday evening, he became nauseous again and was unable to pass flatus or have a BM. He continues to have hiccups and belching, and he says he vomited a few times over night. He says he communicated this to nursing, but it was not communicated to me. He last vomited prior to 7AM, and now is tired and not feeling well suggesting it was because he was up all night with the N/V. He did have some clear liquids this AM. Physical Examination - Vital Signs Temperature: 98.3 F Blood Pressure: 170/86 Pulse: 63 Respirations: 16 Pulse Ox (%): 95 - Physical Exam General: Alert, Oriented x3, Mild distress HEENT: Atraumatic, Normocephalic Respiratory: Normal air movement Gastrointestinal: No tenderness, Distended Musculoskeletal: No tenderness Integumentary: No breakdown (incisions C/D/I but with non-blanching erythema, potentially from sqHeparin administration. No tenderness or sign of incisional hernia.) Neurological: Normal speech - Studies Laboratory Data (last 24 hrs) 11/02/22 14:16: Sodium 131 L, Potassium 3.5, BUN 22 H, Creatinine 1.47 H, Glucose 109 H Assessment And Plan - Current Problems (Diagnosis) (1) RHONDA (acute kidney injury) Onset Date: ~10/31/22 Current Visit: Yes Status: Acute (2) Ileus, postoperative Onset Date: ~11/01/22 Current Visit: Yes Status: Acute - Plan 52-year-old gentleman with hypertension, DM 2 and right renal mass s/p laparoscopic right radical nephrectomy, postoperative day #3, with expected decline in his renal function/RHONDA, persistent mild hyponatremia, and post-op ileus - initially improving now with reversion. -continue to ambulate QID and PRN. -CT Abdomen-pelvis w/ IV and PO contrast -Toradol 15 mg IV every 6 hours PRN -NPO -Continue NS at 100 cc/h for now but need strict I's/O's -repeat CBC, BMP, Mg, PO4, iCa -NGtube if recurrent vomiting. Plan communicated directly with nursing again.
[2022-11-03] MEDS: NA CHLORIDE 0.9% 1,000 ML IV SCH ×2 (12:47→15:48)
[2022-11-03 13:52] VITALS: BMI 44.7
[2022-11-03 14:07] LABS: Absolute Lymphocytes (CBC) 0.6 K/uL (0.7-4.9); Hematocrit 41.4 % (39.6-49.0); Lymphocytes % 10.4 % (15.3-44.8); MPV 8.4 fL (7.6-11.3); RBC Red Blood Cell Count 4.82 M/uL (4.33-5.43)
[2022-11-03 14:19] LABS: Phosphorus 2.9 mg/dL (2.5-4.9); Potassium 3.4 mmol/L (3.5-5.1)
--- NOTE | 2022-11-03 15:38 | RAD REPORT ---
EXAM DESCRIPTION: CT - Abdomen Pelvis W Contrast - 11/03/2022 3:10 pm CLINICAL HISTORY: Persistent nausea/vomiting and ileus. COMPARISON: Abdominal radiographs 11/01/2022. Abdomen MRI 10/09/2022. TECHNIQUE: Biphasic, helical CT imaging of the abdomen and pelvis was performed following oral and 1 00 ml Isovue-[address]. [address] scans are performed using dose optimization technique as appropriate and may include automated exposure control or mA/KV adjustment according to patient size. FINDINGS: Bibasilar platelike atelectasis. Trace right layering pleural effusion. The liver, spleen, and pancreas show no suspicious findings. Gallbladder is unremarkable. No evidence of intra or extrahepatic biliary ductal dilation. Postsurgical changes of right total nephrectomy are present, with mild fat stranding in right nephrec neisha bed. No residual masses or fluid collections are noted. Left superior renal pole fluid density 2 .1 centimeter cyst is grossly stable compared to the prior MRI allowing for differences in technique. Marked distension of the stomach and proximal small bowel. Abrupt transition to nondistended small fiona wel in the right upper quadrant (axial slice 41/120 on the venous phase). Distal to this, collapsed s mall bowel is noted. Sigmoid colonic diverticulosis. Appendix is normal in appearance. No free air, free fluid or inflammatory stranding. No hernia, mass or bulky lymphadenopathy. The urin lino bladder is without significant finding. Incidentally noted small left inguinal fat containing her everette No suspicious bony findings. IMPRESSION: Markedly distended stomach and proximal small bowel. Abrupt transition to nondistended s mall bowel in the right upper quadrant, raising concern for small bowel obstruction. Postsurgical changes of right total nephrectomy. No residual masses or fluid collections in the right nephrectomy bed. Trace layering right prior effusion. Colonic diverticulosis.
--- NOTE | 2022-11-03 18:26 | RAD REPORT ---
EXAM DESCRIPTION: RAD - Abdomen 1 View (KUB) - 11/03/2022 5:39 pm CLINICAL HISTORY: Placement of NGT/OGT. Post Insertion. COMPARISON: No comparisons TECHNIQUE: Single AP view of the abdomen. FINDINGS: Tip of enteric tube projects over the gastric cardia. Nonobstructive bowel gas pattern. No air-fluid levels, free air, or pneumatosis in the included abdom en. Poor penetration somewhat limits evaluation. No suspicious calcifications. No significant bony abnormality. IMPRESSION: Tip of the enteric tube projects over the gastric cardia.
[2022-11-03] MEDS ORDERED: SODIUM CHLORIDE 0.9% 10ML INJ IV PRN (18:41)
[2022-11-03] MEDS ORDERED: MAGNESIUM 50% 3 GM in NA CHLORIDE 0.9% 100 ML IV ONE (18:55)
[2022-11-03] MEDS: POTASSIUM PHOS 20 MM in NA CHLORIDE 0.9% 500 ML IV ONE ×2 (18:56→23:00)
[2022-11-03] MEDS ORDERED: POTASSIUM CL 40 MEQ in NA CHLORIDE 0.9% 500 ML IV SCH (19:00)
--- NOTE | 2022-11-03 19:50 | RAD REPORT ---
EXAM DESCRIPTION: RAD - Abdomen 1 View (KUB) - 11/03/2022 7:07 pm CLINICAL HISTORY: assess NGTube position COMPARISON: Abdomen 1 View (KUB) dated 11/03/2022 TECHNIQUE: Single AP view of the abdomen. FINDINGS: Distal aspect of the enteric tube is seen projecting along the gastric body. A curvilinear radiodense structure is seen along the right paraspinous region, could represent extension of a more distal segment of the tube, although underexposure along the intervening segment somewhat limits moe luation. Nonobstructive bowel gas pattern. No air-fluid levels, free air, or pneumatosis. No suspicious calcif ications. No significant bony abnormality. IMPRESSION: Distal aspect of the enteric tube at least reaches the gastric body. Please see details above.
[2022-11-03] MEDS ORDERED: PHENOL 1.4% ORAL SPRAY 180ML ONE (20:03)
[2022-11-03] MEDS: NACHLORIDE 0.45% 1,000 ML with POTASSIUM CL 20 MEQ IV SCH ×2 (20:31)
[2022-11-03] MEDS: PANTOPRAZOLE 40 MG INJ IVP SCH (20:41)
[2022-11-04] MEDS: NACHLORIDE 0.45% 1,000 ML with POTASSIUM CL 20 MEQ IV SCH ×6 (00:27→17:07)
[2022-11-04] MEDS: HEPARIN 5000 UNIT/ML 1 ML VIAL SQ SCH ×3 (00:37→17:08)
[2022-11-04 04:41] LABS: Potassium 3.6 mmol/L (3.5-5.1)
[2022-11-04] MEDS: NA CHLORIDE 0.9% 1,000 ML IV SCH ×2 (05:01→17:06)
[2022-11-04] MEDS: INSULIN -REGULAR HUMAN 50 UNIT/0.5 ML ML SQ SCH ×4 (07:30→21:00)
[2022-11-04] MEDS: LOSARTAN POTASSIUM 50 MG TABLET PO SCH (08:33)
[2022-11-04] MEDS: hydroCHLOROthiazide 25 MG TAB PO SCH (08:33)
[2022-11-04] MEDS: PANTOPRAZOLE 40 MG INJ IVP SCH (08:33)
--- NOTE | 2022-11-04 09:59 | RAD REPORT ---
EXAM DESCRIPTION: RAD - Abdomen 1 View (KUB) - 11/04/2022 9:17 am CLINICAL HISTORY: placement of NGT COMPARISON: Abdomen 1 View (KUB) dated 11/03/2022; Abdomen 1 View (KUB) dated 11/03/2022; Abdomen Pe lvis W Contrast dated 11/03/2022 FINDINGS: Persistently dilated small bowel centrally. No acute osseous abnormality.Visualized lungs are unremarkable.No abnormal calcifications. NG tube tip terminates overlying the second portion the duodenum. IMPRESSION: The NG tube tip terminates overlying the second portion of the duodenum. If gastric posi tioning desired, suggest retracting by 10 cm which should leave the tip in the distal stomach.
[2022-11-04] MEDS ORDERED: NACHLORIDE 0.45% 0 ML IV ONE (17:04)
--- NOTE | 2022-11-04 22:43 | P.PN ---
Subjective Date of Service: 11/04/22 Chief Complaint: s/p Right Lap Radical Nephrectomy POD#5 Subjective: Improving Feeling much better this morning after NG tube placed and significant gastric decompression of several liters of fluid. The nausea and belching has resolved. He has passed a small amount of flatus. Physical Examination - Vital Signs Temperature: 97.3 F Blood Pressure: 144/67 Pulse: 76 Respirations: 16 Pulse Ox (%): 93 - Physical Exam General: Alert, In no apparent distress, Oriented x3 HEENT: Atraumatic, Normocephalic, PERRLA, Mucous membr. moist/pink Respiratory: Normal air movement Gastrointestinal: Soft and benign, No tenderness, Distended Musculoskeletal: No swelling, No tenderness Integumentary: No breakdown, No tenderness/swelling, No warmth Neurological: Normal speech - Studies Laboratory Data (last 24 hrs) 11/04/22 03:59: Sodium 134 L, Potassium 3.6, BUN 21 H, Creatinine 1.52 H, Glucose 98 Assessment And Plan - Current Problems (Diagnosis) (1) RHONDA (acute kidney injury) Onset Date: ~10/31/22 Current Visit: Yes Status: Acute (2) Ileus, postoperative Onset Date: ~11/01/22 Current Visit: Yes Status: Inactive (3) Partial small bowel obstruction Current Visit: Yes Status: Acute - Plan 52-year-old gentleman with hypertension, DM 2 and right renal mass s/p laparoscopic right radical nephrectomy, postoperative day #3, with expected decline in his renal function/RHONDA, persistent mild hyponatremia, and post-op ileus converted to partial SBO now with NGTube to LCWS. -continue to ambulate QID and PRN. -Continue NG tube replacements with half-normal saline +20 of KCl per liter at 50% of NG tube output every 4 hours -Hold further Toradol as this is 5 days postop -NPO except for ice chips -Continue NS at 100 cc/h -repeat a.m. labs including BMP, Mg, PO4, iCa -KUB to reassess NG tube position -[id number] -imaging reviewed and it tube within the second stage of the duodenum approximately 15 to 20 cm to 4 mm. We will back the NG tube about 15 cm to get it back into the stomach and continue to observe outputs. -Continue subcu heparin Time Spent Managing PTS Care (In Minutes): 45
[2022-11-04] MEDS: D5.45NS W/KCL 20MEQ 20 MEQ/1,000 ML BAG IV SCH (23:41)
[2022-11-05] MEDS: HEPARIN 5000 UNIT/ML 1 ML VIAL SQ SCH ×3 (00:56→16:17)
[2022-11-05] MEDS: NA CHLORIDE 0.9% 1,000 ML IV SCH ×3 (06:17→16:17)
[2022-11-05 06:26] LABS: Phosphorus 3.1 mg/dL (2.5-4.9); Potassium 3.3 mmol/L (3.5-5.1)
[2022-11-05] MEDS: INSULIN -REGULAR HUMAN 50 UNIT/0.5 ML ML SQ SCH ×4 (07:30→20:57)
[2022-11-05] MEDS ORDERED: POTASSIUM PHOS 20 MM in NA CHLORIDE 0.9% 500 ML IV ONE (07:59)
[2022-11-05] MEDS ORDERED: POTASSIUM CL 40 MEQ in NA CHLORIDE 0.9% 500 ML IV SCH (08:00)
[2022-11-05] MEDS: PANTOPRAZOLE 40 MG INJ IVP SCH (08:42)
[2022-11-05] MEDS: LOSARTAN POTASSIUM 50 MG TABLET PO SCH (08:42)
[2022-11-05] MEDS: hydroCHLOROthiazide 25 MG TAB PO SCH (08:43)
--- NOTE | 2022-11-05 08:47 | RAD REPORT ---
EXAM DESCRIPTION: RAD - Abdomen Single View - 11/05/2022 5:40 am CLINICAL HISTORY: CHECK NGT POSITION COMPARISON: Abdomen Pelvis W Contrast dated 11/03/2022 TECHNIQUE: AP views of the abdomen. FINDINGS: The tip of the enteric tube projects over the proximal stomach. Nonobstructive bowel gas pattern. No air-fluid levels, free air, or pneumatosis. No suspicious calcif ications. No significant bony abnormality. IMPRESSION: Tip of the enteric tube projects over the proximal stomach. Nonobstructive bowel gas pat tern.
[2022-11-05] MEDS: D5.45NS W/KCL 20MEQ 20 MEQ/1,000 ML BAG IV SCH ×2 (14:41→23:12)
--- NOTE | 2022-11-05 21:05 | P.PN ---
Subjective Date of Service: 11/05/22 Chief Complaint: s/p Right Lap Radical Nephrectomy POD#6 Subjective: Ambulating, Improving Continuing to progressively feel better each day and passing flatus. He has not had a bowel movement however since the NG tube has been placed. He is hungry at this time and wants to eat. No nausea, vomiting or belching. Physical Examination - Vital Signs Temperature: 98.4 F Blood Pressure: 147/70 Pulse: 73 Respirations: 14 Pulse Ox (%): 96 - Physical Exam General: Alert, In no apparent distress, Oriented x3, Cooperative HEENT: Atraumatic, Normocephalic, PERRLA, Mucous membr. moist/pink Respiratory: Normal air movement Gastrointestinal: Soft and benign, Non-distended, No tenderness Integumentary: No breakdown, No tenderness/swelling, No erythema Neurological: Normal gait, Normal speech, Normal tone - Studies Laboratory Data (last 24 hrs) 11/05/22 05:28: Sodium 137, Potassium 3.3 L, BUN 21 H, Creatinine 1.41 H, Glucose 122 H, Phosphorus 3.1 Assessment And Plan - Current Problems (Diagnosis) (1) RHONDA (acute kidney injury) Onset Date: ~10/31/22 Current Visit: Yes Status: Acute (2) Partial small bowel obstruction Current Visit: Yes Status: Acute - Plan 52-year-old gentleman with hypertension, DM 2 and right renal mass s/p laparoscopic right radical nephrectomy, postoperative day #6, 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 -I presented the patient the results of the pathology of his radical nephrectomy performed last . I counseled him that this was high risk disease and that while the margins were negative, which is the optimal surgical outcome, the potential for microscopic disease was present. As a result, we will arrange adjuvant immunotherapy with Keytruda via medical oncology consultation on discharge. -continue to ambulate QID and PRN. -Continue NG tube replacements with half-normal saline +20 of KCl per liter at 50% of NG tube output every 4 hours -NPO except for ice chips -Continue NS at 100 cc/h -repeat a.m. labs including BMP, PO4 -NGtube in good position. Monitor outputs overnight and in the AM, and will consider clamp trial tomorrow midday with possible removal of NGtube and diet advancement by dinner -Continue subcu heparin Discharge Plan: Home Plan to discharge in: 48 Hours Time Spent Managing PTS Care (In Minutes): 35
[2022-11-05 21:12] VITALS: O2SAT 98
[2022-11-06] MEDS: HEPARIN 5000 UNIT/ML 1 ML VIAL SQ SCH ×3 (01:31→17:21)
[2022-11-06] MEDS: NA CHLORIDE 0.9% 1,000 ML IV SCH ×2 (05:08→16:54)
[2022-11-06] MEDS: D5.45NS W/KCL 20MEQ 20 MEQ/1,000 ML BAG IV SCH (05:09)
[2022-11-06] MEDS: INSULIN -REGULAR HUMAN 50 UNIT/0.5 ML ML SQ SCH ×4 (07:30→21:00)
[2022-11-06] MEDS: LOSARTAN POTASSIUM 50 MG TABLET PO SCH ×2 (09:00→14:41)
[2022-11-06] MEDS: hydroCHLOROthiazide 25 MG TAB PO SCH ×2 (09:00→14:41)
[2022-11-06] MEDS: PANTOPRAZOLE 40 MG INJ IVP SCH (09:09)
[2022-11-06] MEDS ORDERED: POTASSIUM 25 MEQ EFFERV TAB PO ONE (12:13)
[2022-11-06] MEDS ORDERED: MAGNESIUM 50% 3 GM in NA CHLORIDE 0.9% 100 ML IV ONE (12:18)
--- NOTE | 2022-11-06 20:42 | P.PN ---
Subjective Date of Service: 11/06/22 Chief Complaint: s/p Right Lap Radical Nephrectomy POD#7 Subjective: Tolerating diet, Ambulating, Improving Continuing to progressively feel better each day and passing flatus. He had a bowel movement last night. No nausea, vomiting or hiccups. Tolerated Jell-O for lunch and broth for dinner. Physical Examination - Vital Signs Temperature: 99.1 F Blood Pressure: 132/68 Pulse: 70 Respirations: 18 Pulse Ox (%): 97 - Physical Exam General: Alert, In no apparent distress, Oriented x3, Cooperative HEENT: PERRLA, Mucous membr. moist/pink Respiratory: Normal air movement Gastrointestinal: Soft and benign, No tenderness, No rebound, No guarding Integumentary: No rashes, No breakdown, No tenderness/swelling, No erythema, No cyanosis Neurological: Normal gait, Normal speech - Studies Laboratory Data (last 24 hrs) 11/06/22 03:24: Sodium 140, Potassium 3.0 L, BUN 12, Creatinine 1.09, Glucose 109 H Assessment And Plan - Current Problems (Diagnosis) (1) RHONDA (acute kidney injury) Onset Date: ~10/31/22 Current Visit: Yes Status: Resolved (2) Partial small bowel obstruction Current Visit: Yes Status: Suspected - Plan 52-year-old gentleman with hypertension, DM 2 and right renal mass s/p laparoscopic right radical nephrectomy, postoperative day #7, pT3aNx cM0 ccRCCa G2 negative margins, with expected decline in his renal function/RHONDA, and post- op ileus converted to partial SBO now potentially resolved. -continue to ambulate QID and PRN. -Clear liquid diet for noon and dinner -Diabetic regular diet tomorrow for breakfast -Dulcolax suppository and milk of magnesia in the morning -Tramadol for pain -Hep-Lock IV fluids -repeat a.m. labs BMP -Continue subcu heparin Discharge Plan: Home Plan to discharge in: 24 Hours
[2022-11-07] MEDS: HEPARIN 5000 UNIT/ML 1 ML VIAL SQ SCH ×2 (01:38→09:48)
[2022-11-07 03:33] LABS: Potassium 3.6 mmol/L (3.5-5.1)
[2022-11-07] MEDS: INSULIN -REGULAR HUMAN 50 UNIT/0.5 ML ML SQ SCH ×2 (07:30→11:30)
[2022-11-07] MEDS: MAGNESIUM HYDROXIDE 8% 30 ML PO SCH ×2 (08:00→09:00)
[2022-11-07] MEDS: BISACODYL 10 MG RECTAL SUPP PR SCH ×2 (08:00→09:00)
[2022-11-07] MEDS: LOSARTAN POTASSIUM 50 MG TABLET PO SCH (09:00)
[2022-11-07] MEDS ORDERED: POTASSIUM 25 MEQ EFFERV TAB PO ONE (09:03)
[2022-11-07] MEDS: hydroCHLOROthiazide 25 MG TAB PO SCH (09:48)
[2022-11-07] MEDS: PANTOPRAZOLE 40 MG INJ IVP SCH (09:48)
--- NOTE | 2022-11-07 14:07 | P.DS ---
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 His postoperative course was complicated by development of ileus and partial SBO which required NG tube placement and subsequently resolved. Expected postoperative decline in renal function/RHONDA was observed but has settled to a new baseline closer to his original/normal. Mild hyponatremia also resolved w ith fluid and electrolyte replacements. He currently is tolerating a regular/diabetic diet with no nausea or vomiting, and his pain is controlled with tramadol. He has been ambulating and his incisions and surgical sites are all excellent. He is thus eligible for discharge home in good condition. Pathology has been discussed with the patient. Plan for medical oncology follow-up and initiation of adjuvant Keytruda likely. Vital Signs/Physical Exam: Temp Pulse Resp BP Pulse Ox 98.3 F 75 14 115/74 97 11/07/22 08:00 11/07/22 09:48 11/07/22 08:00 11/07/22 09:48 11/07/22 08:00 General: In no apparent distress, Oriented x3, Cooperative HEENT: Atraumatic, Normocephalic, PERRLA, Mucous membr. moist/pink Respiratory: Normal air movement Cardiovascular: No edema Gastrointestinal: Soft and benign, Non-distended, No tenderness, No rebound, No guarding Musculoskeletal: No clubbing, No swelling, No erythema, No tenderness Integumentary: No rashes, No breakdown, No tenderness/swelling, No erythema, No cyanosis Neurological: Normal gait, Normal speech Laboratory Data at Discharge: WBC 6.20 K/uL (4.3-10.9) 11/03/22 13:39 Hgb 13.9 g/dL (13.6-17.9) 11/03/22 13:39 Hct 41.4 % (39.6-49.0) 11/03/22 13:39 Plt Count 248 K/uL (152-406) 11/03/22 13:39 PT 12.6 SECONDS (9.5-12.5) H 10/29/22 13:23 INR 1.15 10/29/22 13:23 Sodium 135 mmol/L (136-145) L D 11/07/22 03:07 Potassium 3.6 mmol/L (3.5-5.1) D 11/07/22 03:07 BUN 8 mg/dL (7-18) 11/07/22 03:07 Creatinine 1.25 mg/dL (0.70-1.30) 11/07/22 03:07 Glucose 108 mg/dL (74-106) H 11/07/22 03:07 Phosphorus 3.1 mg/dL (2.5-4.9) 11/05/22 05:28 Total Bilirubin 0.5 mg/dL (0.2-1.0) 10/29/22 13:23 AST 19 U/L (15-37) 10/29/22 13:23 ALT 25 U/L (16-61) 10/29/22 13:23 Alkaline Phosphatase 77 U/L (45-117) 10/29/22 13:23 Home Medications: Losartan Potassium 1 tab PO DAILY 10/29/22 Lovastatin 1 tab PO DAILY 10/29/22 Metformin ER [Glucophage ER*] 500 mg PO DAILY 10/29/22 Tadalafil [Cialis] 10 mg PO PRN 10/29/22 Tamsulosin [Flomax*] 1 cap PO DAILY 10/29/22 hydroCHLOROthiazide [Hydrochlorothiazide] 25 mg PO DAILY 10/29/22 Polyethyl Gly 3350 [Glycolax*] 17 gm PO DAILY PRN #1 udbot 11/02/22 traMADol HCL [Ultram*] 50 mg PO TID PRN #15 tab 11/02/22 New Medications: Polyethyl Gly 3350 [Glycolax*] 17 gm PO DAILY PRN #1 udbot PRN Reason: Constipation traMADol HCL [Ultram*] 50 mg PO TID PRN #15 tab PRN Reason: Pain Physician Discharge Instructions: As it has already been at least 3 days since your surgery, you may shower, but avoid scrubbing the incision sites. Avoid any submersion activities (bathtubs, pools, hot tubs, or beaches) until the incisions are completely sealed/healed, which will take around 4 to 6 weeks. Avoid any straining, and avoid any heavy lifting (nothing more than 20 to 25 pounds) for the first 6 weeks from surgery. After the initial 6 weeks, you will likely be able to do more and lift up to 50 to 75 pounds, but you should limit your lifting to that weight until 3 months from surgery. After 3 months, you should be able to return to normal physical activity. Notify me if you develop any fever (temperature greater than 100.4 Fahrenheit), intractable nausea or vomiting, increasing pain not controlled by pain medications, redness or discharge from your incision sites, or other unusual signs or symptoms. I have sent a prescription for tramadol to your pharmacy, which is a pain medication. You do not need to take this if your pain is not severe. You may simply take plain Tylenol (up to 1000 mg every 6 hours maximum), and no more than once or twice a day (every 12 hours), it would be okay if you took Motrin/ibuprofen up to 600 mg for pain. Please take note and keep the total 24-hour daily dose of Tylenol/acetaminophen less than 4000 mg / 4 g. I recommend MiraLAX, which is available [id number], for you to take daily to keep your stools soft and for you to remain regular. Should you develop any constipation despite taking the MiraLAX, you should purchase [id number] milk of magnesia or Ex-Lax as a gentle stimulant. Contact my office to arrange follow-up in 4-5 weeks from surgery to check your incision. We will arrange consultation with Medical Oncology in the interim regarding your kidney cancer. All the best! WBR Diet: ADA Activity: No lifting more than 10 lbs (As indicated in the detailed discharge instructions) Followup: Armani Springer MD [Primary Care Provider] - Alexis Fletcher [ACTIVE - CAN ADMIT] - Time spent managing pt's care (in minutes): 20
[2022-11-07 14:08] VITALS: BP 145/82; TEMP 98.4
== END 2022-11-07 14:52 | disposition home or self-care (01) | DRG 657 ==
LOC: OR 06:25 → INTOOBSV 13:11 → OBSVTOIN 13:11 → 2ND 13:11 → OBSVTOIN 11-01 15:15
PROVIDERS: ADMIT Urology; ATTEND Urology
PROC: 0TT04ZZ Resection of Right Kidney, Percutaneous Endoscopic Approach (ICD-10-PCS; principal; 2022-11-07)
DX: C64.1 Malignant neoplasm of right kidney, except renal pelvis (principal); E87.1 Hypo-osmolality and hyponatremia; K91.31 Postprocedural partial intestinal obstruction; N17.9 Acute kidney failure, unspecified; Z68.41 Body mass index [BMI] 40.0-44.9, adult; S37.39XA Other injury of urethra, initial encounter; E66.9 Obesity, unspecified; I10 Essential (primary) hypertension; E87.6 Hypokalemia; E78.5 Hyperlipidemia, unspecified; N40.1 Benign prostatic hyperplasia with lower urinary tract symptoms; E11.649 Type 2 diabetes mellitus with hypoglycemia without coma; R31.0 Gross hematuria; Z20.822 Contact with and (suspected) exposure to COVID-19; Y83.8 Other surgical procedures as the cause of abnormal reaction of the patient, or of later complication, without mention of misadventure at the time of the procedure
CPT/HCPCS: 36415; 74018; 74019; 74177; 80048; 80053; 81003; 82330; 82947; 84100; 85025; 85610; 86850; 86900; 86901; 87811; 88307; 93005; 94010; A4216; C9113; G0378; G0379; J1100; J1170; J1644; J1940; J2001; J2250; J2370; J2405; J2704; J3010; J3475; J3480; J7030; J7040; J7120; Q9967

== ENCOUNTER 2023-05-11 20:29 | Emergency (ER) | payer OTHER ==
--- OUTSIDE RECORDS SUMMARY | 2023-05-11 20:33 | XMS REPORT | Continuity of Care Document ---
:1970 Author Organization [facility] t Address [address] [place] [address] [place] [id number] Care Team Providers Name Role Phone PCP, PATIENT DOES NOT HAVE A Primary Care Physician UnavailArmani Almeida Attending Clinician Unavailable JULIANA MILLER Attending Clinician Unavailable Juliana Dias Attending Clinician JULIANA MILLER Admitting Clinician Unavailable Problems Condition Condition Condition Status Onset Resolution Last Treating Co mments Source Name Details Category Date Date Treatment Clinician Date Microscopi Problem Co mmon c [facility] hematuria [facility] [id number] BPH loc w Problem Com mon urin Spirit obs/LUTS [facility] [id number] Right Problem Common renal mass [facility] No known No known Disease Unive rs active active ity of problems problems [facility] Allergies, Adverse Reactions, Alerts Allergy Allergy Status Severity Reaction(s) Onset Inactive Treating Comm ents Source Name Type Date Date Clinician NO KNOWN Drug Active Univers ALLERGIE Class ity of S [facility] Social History Social Habit Start Date Stop Date Quantity Comments Source History of Current Smoker Common Spi rit - Tobacco Use [facility] Sex Assigned At Common Sp radha - [facility] Exposure to 2022-06-26 2022-07-06 Not sure University SARS-CoV-2 00:00:00 11:32:00 [facility] (event) [place] Smoking Status Start Date Stop Date Source Tobacco smoking consumption Univ [facility] Medical unknown Branch Current Smoker 2022-10-10 00:00:00 [facility] nter Medications Ordered Filled Start [...] 0-16 medication it y of 11:20: s [place] [address] Medical Branch Losartan Losartan No 1{table QD [...] Comments Source height 2022-10-10 15:00:00 70 [in_i] [facility] weight 2022-10-10 15:00:00 330 [lb_av] [facility] bmi 2022-10-10 15:00:00 47.34 kg/m2 [facility] Systolic blood 2022-07-06 16:17:00 156 mm[Hg] Univer sit of pressure [facility] Diastolic blood 2022-07-06 16:17:00 100 mm[Hg] [facility] Heart rate 2022-07-06 16:17:00 73 /min [facility] Body temperature 2022-07-06 16:17:00 37.06 [place] Respiratory rate 2022-07-06 16:17:00 18 /min [facility] Body weight 2022-07-06 16:17:00 140.615 kg [facility] Oxygen saturation in 2022-07-06 16:17:00 99 /min [facility] blood by [facility] Pulse oximetry Branch Procedures Procedure Date / Time Performed Performing Clinician Alexus e CT ABDOMEN PELVIS WO 2022-07-06 16:45:55 Juliana Miller [facility] CONTRAST [facility] Branch LIPASE 2022-07-06 16:25:00 Juliana Miller [facility] COMP. METABOLIC PANEL 2022-07-06 16:25:00 Juliana Miller [facility] ([id number]) [facility] CBC WITH DIFF 2022-07-06 16:25:00 Juliana Miller [facility] URINALYSIS 2022-07-06 16:25:00 Juliana Miller [facility] NOTICE OF PRIVACY 2022-07-06 16:08:39 Doctor Unassigned, No [facility] PRACTICES Name [facility] CONSENT/REFUSAL FOR 2022-07-06 16:07:48 Doctor Unassigned, No [facility] DIAGNOSIS AND Name Medical [place] TREATMENT Encounters Start End Encounter Admission Attending Care Care Encounter Source Date/Time Date/Time Type Type Clinicians Facility Department ID 2022-10-10 [id number] Common 11:56:02 Armani [id number] [facility] 2022-10-15 2022-10-15 (TEL) [facility] [id number] Co mmon 00:00:00 00:00:00 [facility] 2022-10-102022-10-10 OFFICE [facility] [id number] Co mmon 00:00:00 00:00:00 VISIT Spirit ESTAB PT - CHI LEVEL 5 [facility] 2022-07-06 2022-07-06 Emergency X OLYA, [facility] ERT [id number] Univers 11:22:00 12:49:00 JULIANA child of [facility] 2022-07-06 2022-07-06 Emergency [facility] [id number] Univers 11:22:00 12:49:00 [facility] [id number] i ty of [place] [id number] [facility] [id number] [place] [id number] Branch Results Test Description Test Time Test Comments Results Result Comments Source Complete Metabolic Panel 2022-07-06 17:00:17 Test Item Value Reference Range Interpretation Comme nts NA (test code = 8102751449) 137 mmol/L 135-145 K (test code = 2574464375) 4.7 mmol/L 3.5-5 CL (test code = 8829581113) 98 mmol/L 98-108 CO2 TOTAL (test code = 28 mmol/L 23-31 3443288032) AGAP (test code = 2440649996) 2-16 BUN (test code = 4972533393) 12 mg/dL 7-23 GLUCOSE (test code = 7799449295) 100 mg/dL 70-110 CREATININE (test code = 1.09 mg/dL 0.6-1.25 1546142539) TOTAL BILI (test code = 0.6 mg/dL 0.1-1.4 3161184922) CALCIUM (test code = 3998026415) 9.6 mg/dL 8.6-10.6 T PROTEIN (test code = 7.9 g/dL 6.3-8.2 7244134524) ALBUMIN (test code = 1728411173) 4.9 g/dL 3.5-5 ALK PHOS (test code = 3975478786) 88 U/L 34-122 ALTv (test code = 1742-6) 31 U/L 5-50 AST(SGOT) (test code = 38 U/L 13-40 1626936703) eGFR (test code = 1473476497) mL/min/1.73m2 PAUL (test code = PAUL) Association [...] or urine or abnormalities in imaging tests). [facility] [id number] 16:59:57 Test Item Value Reference Range Interpretation Comments LIPASE (test code = 2895575934) 48 U/L 0-220 Lab Interpretation (test code = Normal 02382-6) [facility] with [id number] 16:47:57 Test Item Value Reference Range Interpretation Comments WBC (test code = See_Comment [Automated 6671-2) message] The sy stem which generated this result transmitted reference range : 4.20 - 10.70 10*3/?L. The reference range was not used to interpret this result as normal/abnormal . RBC (test code = See_Comment H [Automated 243-4) message] The sy stem which generated this [...] RDW-SD (test code = 45.4 fL 38.5-51.6 43210-8) RDW-CV (test code = 14.2 % 12.1-15.4 788-0) PLT (test code = See_Comment [Automated 777-3) message] The sy stem which generated this result transmitted reference range : 150 - 328 10*3/ ?L. The reference r anuradha was not used to interpret this result as normal/abnormal . MPV (test code = 10.3 fL 9.8-13 74120-1) NRBC/100 WBC (test See_Comment [Automat ed code = 1438501727) message] The system which generated this result transmitted reference range : 0.0 - 10.0 /100 WBCs. The refer ence range was not u sed to interpret th is result as normal/abnormal . NRBC x10^3 (test code See_Comment [Auto mated = 7584092185) message] The s ystem which generated this result transmitted reference range : 10*3/?L. The reference range was not used to interpret this result as normal/abnormal . GRAN MAT (NEUT) % 61.9 % (test code = 770-8) IMM GRAN % (test code 0.50 % = 9919054147) LYMPH % (test code = 22.5 % 736-9) MONO % (test code = 11.8 % 5905-5) EOS % (test code = 2.7 % 713-8) BASO % (test code = 0.6 % 706-2) GRAN MAT x10^3(ANC) 4.08 10*3/uL 1.99-6.95 (test code = 9788695906) IMM GRAN x10^3 (test 0.03 10*3/uL 0-0.06 code = 7519851247) LYMPH x10^3 (test code 1.48 10*3/uL 1.09-3.23 = 731-0) MONO x10^3 (test code 0.78 10*3/uL 0.36-1.02 = 742-7) EOS x10^3 (test code = 0.18 10*3/uL 0.06-0.53 711-2) BASO x10^3 (test code 0.04 10*3/uL 0.01-0.09 = 704-7) Lab Interpretation Abnormal (test code = 16278-9) [facility]"
--- NOTE | 2023-05-11 21:14 | RAD REPORT ---
EXAM DESCRIPTION: CT - Head Brain Wo Cont - 05/11/2023 9:03 pm CLINICAL HISTORY: Syncope COMPARISON: none TECHNIQUE: Computed axial tomography of the head was obtained. IV contrast was not requested. All CT scans are performed using dose optimization technique as appropriate and may include automated exposure control or mA/KV adjustment according to patient size. FINDINGS: An intracranial bleed is not seen The ventricles are normal in caliber No significant hypodense areas within the brain visualized No extra-axial fluid collection is noted. Fluid within the sinuses/ mastoids is not seen IMPRESSION: No acute intracranial abnormality is seen If patient's symptoms persist MRI of the brain would be recommended
--- NOTE | 2023-05-11 21:36 | RAD REPORT ---
EXAM DESCRIPTION: Anthony Single View05/11/2023 9:24 pm CLINICAL HISTORY: Chest pain COMPARISON: Sep 2022 FINDINGS: The lungs appear clear of acute infiltrate. The heart is normal size IMPRESSION: No acute abnormalities displayed
[2023-05-11 21:55] LABS: Absolute Lymphocytes (CBC) 1.7 K/uL (0.7-4.9); Hematocrit 38.7 % (39.6-49.0); Lymphocytes % 24.4 % (15.3-44.8); MCV 85.8 fL (80-100); MPV 8.1 fL (7.6-11.3); Platelets 331 thou/uL (152-406); RBC Red Blood Cell Count 4.51 M/uL (4.33-5.43)
[2023-05-11 22:01] LABS: Specific Gravity 1.005 (1.005-1.030); Urine Bacteria None Seen /HPF (<20); Urine Bilirubin NEGATIVE (Negative); Urine Blood Negative (Negative); Urine Clarity Clear (Clear); Urine Color Yellow (Yellow); Urine Glucose NEGATIVE (Negative); Urine Protein NEGATIVE (Negative); Urine RBC <5 /HPF (None Seen); Urine Urobilinogen Normal (Normal)
[2023-05-11 22:13] LABS: Protime INR 1.27
[2023-05-11 22:17] LABS: Albumin 3.5 g/dL (3.4-5.0); Bilirubin Direct 0.2 mg/dL (0-0.2); Bilirubin Indirect, Calculated 0.5 mg/dL (0.2-0.8); Bilirubin Total 0.7 mg/dL (0.2-1.0); Magnesium 1.8 mg/dL (1.6-2.4); Potassium 2.9 mEq/L (3.5-5.1); Protein, Total 7.3 g/dL (6.4-8.2); Troponin High Sensitivity 31.6 pg/mL (<58.9)
--- NOTE | 2023-05-11 22:50 | ER ---
Nurse's Notes [facility] Name: Missael Quinteros Age: 52 yrs Sex: Male : 1970 Arrival Date: 05/11/2023 Time: 20:29 Bed 8 Private MD: Diagnosis: Prerenal azotemia, dehydration, hyponatremia, hypokalemia, generalized weakness Presentation: 05/11 20:42 Chief complaint: Patient states: C/O lighheadedness and fatigue,onset Thursday at 0400 pf1 with weakness with nausea,onset 2 weeks with left forearm pain of 1,onset 2 weeks ago with chronic intermittent numbness to fingers. Patient stated has lost 10 lbs in the past 3 weeks. Patient stated has an F/U appointment on Thursday with Dr. Fletcher urology at [facility] for [facility] scan. Coronavirus screen: Vaccine status: Patient reports receiving the 2nd dose of the covid vaccine. Client denies travel out of the [place] in the last 14 days. At this time, the client does not indicate any symptoms associated with coronavirus-19. Ebola Screen: Patient negative for fever greater than or equal to 101.5 degrees Fahrenheit, and additional compatible Ebola Virus Disease symptoms. Initial Sepsis Screen: Does the patient meet any 2 criteria? No. Patient's initial sepsis screen is negative. Does the patient have a suspected source of infection? No. Patient's initial sepsis screen is negative. Risk Assessment: Do you want to hurt yourself or someone else? Patient reports no desire to harm self or others. 20:42 Method Of Arrival: Wheelchair pf1 20:42 Acuity: BOBBY 3 pf1 22:51 Onset of symptoms was April 27, 2023. jw7 Historical: - Allergies: 20:47 No Known Allergies; pf1 - PMHx: 20:47 DM; Hypertensive disorder; kidney cancer; pf1 - PSHx: 20:47 right kidney removal due to cancer; pf1 - Immunization history:: Adult Immunizations up to date, Last tetanus immunization: < 5 years ago Flu vaccine is not up to date. - Social history:: Smoking status: Patient/guardian denies using tobacco, Patient/guardian denies using alcohol, street drugs. Screenin:39 [facility] ED Fall Risk Assessment (Adult) History of falling in the last 3 months, lg3 including since admission No falls in past 3 months (0 pts). Abuse screen: Denies threats or abuse. Denies injuries from another. Nutritional screening: No deficits noted. Tuberculosis screening: No symptoms or risk factors identified. Assessment: 21:39 General: Appears in no apparent distress. comfortable, Behavior is calm, cooperative. lg3 Pain: Denies pain. Neuro: Level of Consciousness is awake, alert, obeys commands, Oriented to person, place, time, situation, Reports dizziness, numbness weakness. Cardiovascular: No deficits noted. Rhythm is regular. Respiratory: No deficits noted. Airway is patent Respiratory effort is even, unlabored, Respiratory pattern is regular, symmetrical. GI: Abdomen is round non-distended, obese, Reports nausea. : No deficits noted. EENT: No deficits noted. No signs and/or symptoms were reported regarding the EENT system. Derm: No deficits noted. No signs and/or symptoms reported regarding the dermatologic system. Skin is intact, is healthy with good turgor, Skin is dry, Skin is normal, Skin temperature is warm. Musculoskeletal: No signs and/or symptoms reported regarding the musculoskeletal system. Reports numbness in left arm. 22:49 Reassessment: Patient appears in no apparent distress at this time. No changes from jw7 previously documented assessment. Patient and/or family updated on plan of care and expected duration. Pain level reassessed. Patient is alert, oriented x 3, equal unlabored respirations, skin warm/dry/pink. 23:08 General: PT to DC post completion of fluids. lg3 Vital Signs: 20:42 BP 115 / 89; Pulse 95; Resp 18; Temp 97.6; Pulse Ox 98% on R/A; Weight 133.81 kg; pf1 Height 6 ft. 0 in. ; Pain 1/10; 21:46 BP 121 / 83; Pulse 87; Resp 17 S; Pulse Ox 99% on R/A; lg3 22:30 BP 126 / 88; Pulse 88; Resp 16 S; Pulse Ox 97% on R/A; jw7 23:00 BP 118 / 81; Pulse 86; Resp 15 S; Pulse Ox 100% on R/A; jw7 20:42 Body Mass Index 40.01 (133.81 kg, 182.88 cm) pf1 20:42 Pain Scale: Adult pf1 ED Course: 20:33 Patient arrived in ED. kj1 20:34 Elizabeth Bradshaw MD is Attending Physician. sp3 20:47 Triage completed. pf1 21:05 CT Head Brain wo Cont In Process Unspecified. EDMS 21:26 Chest Single View XRAY In Process Unspecified. EDMS 21:38 Alea Vazquez, SUGEY is Primary Nurse. lg3 21:38 Inserted saline lock: 20 gauge in left antecubital area, using aseptic technique. Blood lg3 collected. 21:39 Patient maintains SpO2 saturation greater than 95% on room air. lg3 21:39 Patient has correct armband on for positive identification. Placed in gown. Bed in low lg3 position. Call light in reach. Side rails up X 1. Client placed on continuous cardiac and pulse oximetry monitoring. NIBP monitoring applied. 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 Door closed. Noise minimized. Warm blanket given. 21:43 UAM Sent. lg3 21:43 Flu Sent. lg3 21:43 SARS-COV-2 RT PCR Sent. lg3 21:43 Basic Metabolic Panel Sent. lg3 21:43 CBC with Diff Sent. lg3 21:43 Hepatic Function Sent. lg3 21:43 Magnesium Sent. lg3 21:43 Protime (+inr) Sent. lg3 21:44 Troponin High Sensitivity Sent. lg3 22:50 Arm band placed on. jw7 05/12 00:00 No provider procedures requiring assistance completed. IV discontinued, intact, jw7 bleeding controlled, No redness/swelling at site. Pressure dressing applied. 00:01 Provided Education on: discharge instructions. jw7 Administered Medications: 05/11 22:49 Drug: NS 0.9% IV 1000 ml Route: IV; Rate: 1 bolus; Site: left antecubital; jw7 05/12 00:01 Follow up: Response: No adverse reaction; IV Status: Completed infusion; IV Intake: jw7 1000ml 05/11 22:49 Drug: Potassium Chloride PO 40 mEq Route: PO; jw7 05/12 00:01 Follow up: Response: No adverse reaction jw7 05/11 22:49 Drug: Potassium Chloride PO 20 mEq Route: PO; jw7 05/12 00:01 Follow up: Response: No adverse reaction jw7 Medication: 00:01 VIS not applicable for this client. jw7 Point of Care Testing: Blood Glucose: 05/11 22:51 Blood Glucose: 96 mg/dL; jw7 Ranges: Intake: 05/12 00:01 IV: 1000ml; Total: 1000ml. jw7 Outcome: 05/11 22:49 Discharge ordered by . sp3 05/12 00:01 Discharged to home ambulatory. jw7 Condition: stable Discharge instructions given to patient, Instructed on discharge instructions, follow up and referral plans. Demonstrated understanding of instructions, follow-up care. 00:02 Patient left the ED. jw7 Signatures: Dispatcher [employer] EDMS Mike Marta kj1 Alea Vazquez, RN RN lg3 Elizabeth Bradshaw MD MD sp3 Janet Shane RN RN jw7 Demetrice Castillo RN RN pf1 Corrections: (The following items were deleted from the chart) 05/11 20:50 20:42 BP 115 / 89; Pulse 60bpm; Resp 18bpm; Pulse Ox 98% RA; Temp 97.6F; 133.81 kg; pf1 Height 6 ft. 0 in.; BMI: 40.0; Pain 1/10, Adult; pf1
--- NOTE | 2023-05-11 22:50 | EDPHYS ---
Physician Documentation [facility] Name: Missael Quinteros Age: 52 yrs Sex: Male : 1970 Arrival Date: 05/11/2023 Time: 20:29 Bed 8 Private MD: ED Physician Elizabeth Bradshaw HPI: 05/11 21:08 This 52 yrs old Male presents to ER via Wheelchair with complaints of Syncope. sp3 21:08 52-year-old male with history of diabetes, hypertension, recent right renal cancer sp3 status post resection currently on Keytruda now presents to the ED for chief complaint fatigue, near syncope and subjective fever. He denies any specific painful symptoms as well as URI symptoms, shortness of breath, chest pain, rash, or any other signs or symptoms on ROS at this time. Symptoms are very vague. Given his past history he wanted to be cautious and therefore he comes in for evaluation.. Historical: - Allergies: 20:47 No Known Allergies; pf1 - PMHx: 20:47 DM; Hypertensive disorder; kidney cancer; pf1 - PSHx: 20:47 right kidney removal due to cancer; pf1 - Immunization history:: Adult Immunizations up to date, Last tetanus immunization: < 5 years ago Flu vaccine is not up to date. - Social history:: Smoking status: Patient/guardian denies using tobacco, Patient/guardian denies using alcohol, street drugs. ROS: 21:08 Eyes: Negative for injury, pain, redness, and discharge, ENT: Negative for injury, sp3 pain, and discharge, Neck: Negative for injury, pain, and swelling, Cardiovascular: Negative for chest pain, palpitations, and edema, Respiratory: Negative for shortness of breath, cough, wheezing, and pleuritic chest pain, Abdomen/GI: Negative for abdominal pain, nausea, vomiting, diarrhea, and constipation, Back: Negative for injury and pain, Skin: Negative for injury, rash, and discoloration, Psych: Negative for depression, anxiety, suicide ideation, homicidal ideation, and hallucinations, Allergy/Immunology: Negative for hives, rash, and allergies, Endocrine: Negative for neck swelling, polydipsia, polyuria, polyphagia, and marked weight changes. 21:08 All other systems are negative. Exam: 21:09 Constitutional: This is a well developed, well nourished patient who is awake, alert, sp3 and in no acute distress. Head/Face: Normocephalic, atraumatic. Eyes: Pupils equal round and reactive to light, extra-ocular motions intact. Lids and lashes normal. Conjunctiva and sclera are non-icteric and not injected. Cornea within normal limits. Periorbital areas with no swelling, redness, or edema. ENT: Nares patent. No nasal discharge, no septal abnormalities noted. External auditory canals are clear. Oropharynx with no redness, swelling, or masses, exudates, or evidence of obstruction, uvula midline. Mucous membranes moist. Neck: Trachea midline, no thyromegaly or masses palpated, and no cervical lymphadenopathy. Supple, full range of motion without nuchal rigidity, or vertebral point tenderness. No Meningismus. Chest/axilla: Normal chest wall appearance and motion. Nontender with no deformity. No lesions are appreciated. Cardiovascular: Regular rate and rhythm with a normal S1 and S2. No gallops, murmurs, or rubs. Normal PMI, no JVD. No pulse deficits. Respiratory: Lungs have equal breath sounds bilaterally, clear to auscultation and percussion. No rales, rhonchi or wheezes noted. No increased work of breathing, no retractions or nasal flaring. Abdomen/GI: Soft, non-tender, with normal bowel sounds. No distension or tympany. No guarding or rebound. No evidence of tenderness throughout. Back: No spinal tenderness. No costovertebral tenderness. Full range of motion. Skin: Warm, dry with normal turgor. Normal color with no rashes, no lesions, and no evidence of cellulitis. MS/ Extremity: Pulses equal, no cyanosis. Neurovascular intact. Full, normal range of motion. Neuro: Awake and alert, GCS 15, oriented to person, place, time, and situation. Cranial nerves II-XII grossly intact. Motor strength 5/5 in all extremities. Sensory grossly intact. Cerebellar exam normal. Normal gait. Psych: Awake, alert, with orientation to person, place and time. Behavior, mood, and affect are within normal limits. 21:55 ECG was reviewed by the Attending Physician. Normal sinus rhythm at 88 bpm with normal sp3 intervals, normal QRS with possible left anterior fascicular block, nonspecific diffuse ST/T changes without evidence of ischemia. Vital Signs: 20:42 BP 115 / 89; Pulse 95; Resp 18; Temp 97.6; Pulse Ox 98% on R/A; Weight 133.81 kg; pf1 Height 6 ft. 0 in. ; Pain 1/10; 21:46 BP 121 / 83; Pulse 87; Resp 17 S; Pulse Ox 99% on R/A; lg3 22:30 BP 126 / 88; Pulse 88; Resp 16 S; Pulse Ox 97% on R/A; jw7 23:00 BP 118 / 81; Pulse 86; Resp 15 S; Pulse Ox 100% on R/A; jw7 20:42 Body Mass Index 40.01 (133.81 kg, 182.88 cm) pf1 20:42 Pain Scale: Adult pf1 MDM: 20:49 Patient medically screened. sp3 21:09 Data reviewed: vital signs, nurses notes, old medical records, lab test result(s), EKG, sp3 radiologic studies. ED course: 52-year-old male with vague symptoms including fatigue and near syncope. Broad differential exist including viral syndrome, other infection, cardiac pathology, recurrence of cancer, among others. Will obtain CT scan of the head, chest x-ray, EKG, laboratory values, and general observation. Urinalysis also pending. Disposition pending work-up and patient course. Patient had PET CTs after his resection and did not show any other cancer.. 22:48 ED course: CT scan of the head and chest x-ray are normal. Patient has single kidney sp3 and elevated creatinine at 1.4 is worrisome. Sodium is 129 potassium at 2.9. We will replenish both of those. If elevated creatinine is due to prerenal syndrome, normal saline 1 L should address. Patient will need repeat creatinine within the next 48 hours to trend. Patient does say that he has been sweating a lot and likely has secondary losses. He understands the importance of these findings and need for follow-up. I will print all his labs for him so he can take it to his oncologist and urologist. I do not suspect intrinsic renal failure, renal tubular necrosis, or obstructive uropathy at this time.. 05/11 20:41 Order name: Basic Metabolic Panel; Complete Time: 22:33 sp3 05/11 20:41 Order name: CBC with Diff; Complete Time: 22:33 sp3 05/11 20:41 Order name: Hepatic Function; Complete Time: 22:33 sp3 05/11 20:41 Order name: Magnesium; Complete Time: 22:33 sp3 05/11 20:41 Order name: Protime (+inr); Complete Time: 22:33 3 05/11 20:41 Order name: Troponin High Sensitivity; Complete Time: 22:33 3 05/11 21:07 Order name: SARS-COV-2 RT PCR; Complete Time: 22:33 sp3 05/11 21:07 Order name: Flu; Complete Time: 22:33 sp3 05/11 21:10 Order name: UAM; Complete Time: 22:33 3 05/11 20:41 Order name: CT Head Brain wo Cont; Complete Time: 21:53 sp3 05/11 20:41 Order name: Chest Single View XRAY; Complete Time: 21:53 3 05/11 20:41 Order name: EKG; Complete Time: 20:42 3 05/11 20:41 Order name: Cardiac monitoring; Complete Time: 21:43 3 05/11 20:41 Order name: EKG - Nurse/Tech; Complete Time: 21:46 3 05/11 20:41 Order name: IV Saline Lock; Complete Time: 21:43 3 05/11 20:41 Order name: Labs collected and sent; Complete Time: 21:43 3 05/11 20:41 Order name: NPO; Complete Time: 21:43 3 05/11 20:41 Order name: O2 Per Protocol; Complete Time: 21:43 3 05/11 20:41 Order name: O2 Sat Monitoring; Complete Time: 21:43 sp Administered Medications: 22:49 Drug: NS 0.9% IV 1000 ml Route: IV; Rate: 1 bolus; Site: left antecubital; 05/12 00:01 Follow up: Response: No adverse reaction; IV Status: Completed infusion; IV Intake: jw7 1000ml 05/11 22:49 Drug: Potassium Chloride PO 40 mEq Route: PO; jw7 05/12 00:01 Follow up: Response: No adverse reaction 05/11 22:49 Drug: Potassium Chloride PO 20 mEq Route: PO; jw7 05/12 00:01 Follow up: Response: No adverse reaction jw7 Point of Care Testing: Blood Glucose: 05/11 22:51 Blood Glucose: 96 mg/dL; jw7 Ranges: Critical Glucose Levels:Adult <50 mg/dl or >400 mg/dl <40 mg/dl or >180 mg/dl Disposition Summary: 05/11/23 22:49 Discharge Ordered Location: Home sp3 Condition: Stable sp3 Diagnosis - Prerenal azotemia, dehydration, hyponatremia, hypokalemia, generalized weakness sp3 Followup: sp3 - With: Private Physician - When: Upon discharge from the Emergency Department - Reason: Continuance of care Discharge Instructions: - Discharge Summary Sheet sp3 - Hypokalemia sp3 Forms: - Medication Reconciliation Form sp3 - Thank You Letter sp3 - Antibiotic Education sp3 - Prescription Opioid Use sp3 - Patient Portal Instructions sp3 - Leadership Thank You Letter sp3 Signatures: Dispatcher [employer] Elizabeth Dumont MD MD sp3 Janet Shane RN RN jw7 Demetrice Castillo RN RN pf1
[2023-05-11] MEDS ORDERED: POTASSIUM CL SA 10 MEQ TAB PO ONE (22:52)
[2023-05-11] MEDS ORDERED: NA CHLORIDE 0.9% 1,000 ML ONE (22:52)
[2023-05-12 00:26] VITALS: TEMP 97.6
[2023-05-12 00:34] VITALS: BP 118/81; O2SAT 100
--- NOTE | 2023-05-12 15:51 | EKG ---
Test Date: 2023-05-11 Test Time: 21:50:23 Geriatrics Physician: JOHANNA MEASUREMENT RESULTS: Intervals: Rate: 88 TX: 170 QRSD: 120 QT: 394 QTc: 476 Hinkley: P: 6 TX: 170 QRS: -54 T: 6 INTERPRETIVE STATEMENTS: Normal sinus rhythm Left anterior fascicular block Possible Anterolateral infarct, age undetermined Abnormal ECG Compared to ECG 10/29/2022 13:28:40 Left anterior fascicular block now present Incomplete right bundle-branch block no longer present Myocardial infarct finding still present Electronically Signed On 05-12-23 15:50:28 CDT by Marcelo Parks
== END 2023-05-12 00:02 | disposition home or self-care (01) ==
LOC: ER 20:29
DX: E86.0 Dehydration (principal); R79.89 Other specified abnormal findings of blood chemistry; E87.1 Hypo-osmolality and hyponatremia; E87.6 Hypokalemia; R53.1 Weakness; E11.9 Type 2 diabetes mellitus without complications; I10 Essential (primary) hypertension; Z20.822 Contact with and (suspected) exposure to COVID-19; Z85.528 Personal history of other malignant neoplasm of kidney
CPT/HCPCS: 93005; 85025; 81001; 80048; 36415; 83735; 85610; 80076; 84484; 87635; 87804 ×2; 70450; 71045; 96360; 99285; J7030

== ENCOUNTER 2023-06-08 17:49 | Observation (INO) | payer OTHER ==
--- OUTSIDE RECORDS SUMMARY | 2023-06-08 18:24 | XMS REPORT | Continuity of Care Document ---
:1970 Author Organization [facility] t Address [address] [facility] [address] [place] [address] Care Team Providers Name Role Phone PCP, PATIENT DOES NOT HAVE A Primary Care Physician Unavaila Armani Aragon Attending Clinician Unavailable Juliana Dias Attending Clinician JULIANA MILLER Attending Clinician Unavailable JULIANA MILLER Admitting Clinician Unavailable Problems Condition Condition Condition Status Onset Resolution Last Treating Co mments Source Name Details Category Date Date Treatment Clinician Date Microscopi Problem Co mmon c [facility] hematuria [facility] [id number] BPH loc w Problem Com mon urin Spirit obs/LUTS [facility] [id number] Right Problem Common renal mass [facility] No known No known Disease Unive rs active active ity of problems problems [facility] Allergies, Adverse Reactions, Alerts Allergy Allergy Status Severity Reaction(s) Onset Inactive Treating Comm ents Source Name Type Date Date Clinician NO KNOWN Drug Active Univers ALLERGIE Class ity of S [facility] Social History Social Habit Start Date Stop Date Quantity Comments Source History of Current Smoker Common Spi rit - Tobacco Use [facility] Sex Assigned At Common Sp radha - [facility] Exposure to 2022-06-26 2022-07-06 Not sure University SARS-CoV-2 00:00:00 11:32:00 [facility] (event) [place] Smoking Status Start Date Stop Date Source Tobacco smoking consumption Univ [facility] Medical unknown Branch Current Smoker 2022-10-10 00:00:00 [facility] nter Medications Ordered Filled Start Stop Current [...] 0-16 medication it y of 11:20: s [place] [id number] Medical Branch Losartan Losartan No 1{table QD [...] Comments Source height 2022-10-10 15:00:00 70 [in_i] [facility] weight 2022-10-10 15:00:00 330 [lb_av] [facility] bmi 2022-10-10 15:00:00 47.34 kg/m2 [facility] Systolic blood 2022-07-06 16:17:00 156 mm[Hg] Univer sit of pressure [facility] Diastolic blood 2022-07-06 16:17:00 100 mm[Hg] [facility] Heart rate 2022-07-06 16:17:00 73 /min [facility] Body temperature 2022-07-06 16:17:00 37.06 Carmita [facility] Respiratory rate 2022-07-06 16:17:00 18 /min [facility] Body weight 2022-07-06 16:17:[address] [facility] Oxygen saturation in 2022-07-06 16:17:00 99 /min [facility] blood by [facility] Pulse oximetry Branch Procedures Procedure Date / Time Performed Performing Clinician Alexus e CT ABDOMEN PELVIS WO 2022-07-06 16:45:55 Juliana Miller [facility] CONTRAST [facility] Branch LIPASE 2022-07-06 16:25:00 Juliana Miller [facility] COMP. METABOLIC PANEL 2022-07-06 16:25:00 Juliana Miller [facility] ([id number]) [facility] CBC WITH DIFF 2022-07-06 16:25:00 Juliana Miller [facility] URINALYSIS 2022-07-06 16:25:00 Juliana Miller [facility] NOTICE OF PRIVACY 2022-07-06 16:08:39 Doctor Unassigned, No [facility] PRACTICES Name [facility] CONSENT/REFUSAL FOR 2022-07-06 16:07:48 Doctor Unassigned, No [facility] DIAGNOSIS AND Name Medical [place] TREATMENT Encounters Start End Encounter Admission Attending Care Care Encounter Source Date/Time Date/Time Type Type Clinicians Facility Department ID 2022-10-10 [id number] Common 11:56:02 Armani [id number] [facility] 2022-10-15 2022-10-15 (TEL) [facility] [id number] Co mmon 00:00:00 00:00:00 [facility] 2022-10-102022-10-[address] [facility] [id number] Co mmon 00:00:00 00:00:00 VISIT Spirit ESTAB PT - CHI LEVEL 5 [facility] 2022-07-06 2022-07-06 Emergency Miller, [facility] [id number] Univers 11:22:00 12:49:00 Juliana DUBOSE [id number] i ty of JEANERETTE [id number] [facility] [id number] [facility] 084 Branch 2022-07-06 2022-07-06 Emergency [facility] [id number] Univers 11:22:00 12:49:00 JULIANA child [facility] Results Test Description Test Time Test Comments Results Result Comments Source Complete Metabolic Panel 2022-07-06 17:00:17 Test Item Value Reference Range Interpretation Comme nts NA (test code = 0739365777) 137 mmol/L 135-145 K (test code = 8443185344) 4.7 mmol/L 3.5-5 CL (test code = 8062540837) 98 mmol/L 98-108 CO2 TOTAL (test code = 28 mmol/L 23-31 3076236555) AGAP (test code = 4660206049) 2-16 BUN (test code = 4304826802) 12 mg/dL 7-23 GLUCOSE (test code = 1103650810) 100 mg/dL 70-110 CREATININE (test code = 1.09 mg/dL 0.6-1.25 4137621136) TOTAL BILI (test code = 0.6 mg/dL 0.1-1.2 3241623878) CALCIUM (test code = 5926413034) 9.6 mg/dL 8.6-10.6 T PROTEIN (test code = 7.9 g/dL 6.3-8.2 2257958583) ALBUMIN (test code = 8514793296) 4.9 g/dL 3.5-5 ALK PHOS (test code = 6337209046) 88 U/L 34-122 ALTv (test code = 1742-6) 31 U/L 5-50 AST(SGOT) (test code = 38 U/L 13-40 5270593940) eGFR (test code = 7528602184) mL/min/1.73m2 PAUL (test code = PAUL) Association [...] or urine or abnormalities in imaging tests). [facility] [id number] 16:59:57 Test Item Value Reference Range Interpretation Comments LIPASE (test code = 9653506562) 48 U/L 0-220 Lab Interpretation (test code = Normal 12161-0) [facility] with [id number] 16:47:57 Test Item Value Reference Range Interpretation Comments WBC (test code = See_Comment [Automated 0231-2) message] The sy stem which generated this result transmitted reference range : 4.20 - 10.70 10*3/?L. The reference range was not used to interpret this result as normal/abnormal . RBC (test code = See_Comment H [Automated 044-9) message] The sy stem which generated this [...] RDW-SD (test code = 45.4 fL 38.5-51.6 82771-5) RDW-CV (test code = 14.2 % 12.1-15.4 788-0) PLT (test code = See_Comment [Automated 777-3) message] The sy stem which generated this result transmitted reference range : 150 - 328 10*3/ ?L. The reference r anuradha was not used to interpret this result as normal/abnormal . MPV (test code = 10.3 fL 9.8-13 56141-4) NRBC/100 WBC (test See_Comment [Automat ed code = 4872974669) message] The system which generated this result transmitted reference range : 0.0 - 10.0 /100 WBCs. The refer ence range was not u sed to interpret th is result as normal/abnormal . NRBC x10^3 (test code See_Comment [Auto mated = 2149857771) message] The s ystem which generated this result transmitted reference range : 10*3/?L. The reference range was not used to interpret this result as normal/abnormal . GRAN MAT (NEUT) % 61.9 % (test code = 770-8) IMM GRAN % (test code 0.50 % = 0131282836) LYMPH % (test code = 22.5 % 736-9) MONO % (test code = 11.8 % 5905-5) EOS % (test code = 2.7 % 713-8) BASO % (test code = 0.6 % 706-2) GRAN MAT x10^3(ANC) 4.08 10*3/uL 1.99-6.95 (test code = 1733949429) IMM GRAN x10^3 (test 0.03 10*3/uL 0-0.06 code = 9713662328) LYMPH x10^3 (test code 1.48 10*3/uL 1.09-3.23 = 731-0) MONO x10^3 (test code 0.78 10*3/uL 0.36-1.02 = 742-7) EOS x10^3 (test code = 0.18 10*3/uL 0.06-0.53 711-2) BASO x10^3 (test code 0.04 10*3/uL 0.01-0.09 = 704-7) Lab Interpretation Abnormal (test code = 44172-8) [facility]"
[2023-06-08 18:29] LABS: Absolute Lymphocytes (CBC) 0.9 K/uL (0.7-4.9); Lymphocytes % 23.8 % (15.3-44.8); MCV 86.2 fL (80-100); Platelets 277 thou/uL (152-406); RBC Red Blood Cell Count 4.29 M/uL (4.33-5.43)
[2023-06-08 18:35] LABS: Protime INR 1.23
[2023-06-08 18:46] LABS: Albumin 3.6 g/dL (3.4-5.0); Bilirubin Total 0.7 mg/dL (0.2-1.0); Potassium 3.2 mEq/L (3.5-5.1); Protein, Total 7.4 g/dL (6.4-8.2); Troponin High Sensitivity 28.9 pg/mL (<58.9)
[2023-06-08] MEDS ORDERED: NA CHLORIDE 0.9% 1,000 ML ONE (19:08)
[2023-06-08] MEDS ORDERED: NA CHLORIDE 0.9% 500 ML ONE ×2 (19:09→19:55)
--- NOTE | 2023-06-08 19:19 | EDPHYS ---
Physician Documentation [facility] Name: Missael Quinteros Age: 52 yrs Sex: Male : 1970 Arrival Date: 06/08/2023 Time: 17:49 Bed 17 Private MD: ED Physician Roddy Mccord HPI: 06/08 18:42 This 52 yrs old Male presents to ER via Wheelchair with complaints of snw Weakness, Dizziness. Historical: - Allergies: 18:17 No Known Allergies; jl7 - PMHx: 18:17 DM; Hypertensive disorder; kidney cancer; jl7 - PSHx: 18:17 right kidney removal due to cancer; jl7 - Immunization history:: Adult Immunizations unknown. - Social history:: Smoking status: Patient/guardian denies using tobacco. ROS: 18:41 Constitutional: Negative for fever, chills, and weight loss, Eyes: Negative for injury, snw pain, redness, and discharge, ENT: Negative for injury, pain, and discharge, Neck: Negative for injury, pain, and swelling, Cardiovascular: Negative for chest pain, palpitations, and edema, Respiratory: Negative for shortness of breath, cough, wheezing, and pleuritic chest pain, Back: Negative for injury and pain, : Negative for injury, bleeding, discharge, and swelling, MS/Extremity: Negative for injury and deformity, Skin: Negative for injury, rash, and discoloration, Neuro: Negative for headache, weakness, numbness, tingling, and seizure, Psych: Negative for depression, anxiety, suicide ideation, homicidal ideation, and hallucinations, 18:41 Abdomen/GI: Positive for abdominal pain, nausea, of the right groin, Exam: 18:38 Head/Face: Normocephalic, atraumatic. Eyes: Pupils equal round and reactive to light, snw extra-ocular motions intact. Lids and lashes normal. Conjunctiva and sclera are non-icteric and not injected. Cornea within normal limits. Periorbital areas with no swelling, redness, or edema. ENT: Nares patent. No nasal discharge, no septal abnormalities noted. Tympanic membranes are normal and external auditory canals are clear. Oropharynx with no redness, swelling, or masses, exudates, or evidence of obstruction, uvula midline. Mucous membranes moist. Neck: Trachea midline, no thyromegaly or masses palpated, and no cervical lymphadenopathy. Supple, full range of motion without nuchal rigidity, or vertebral point tenderness. No Meningismus. Chest/axilla: Normal chest wall appearance and motion. Nontender with no deformity. No lesions are appreciated. Cardiovascular: Regular rate and rhythm with a normal S1 and S2. No gallops, murmurs, or rubs. Normal PMI, no JVD. No pulse deficits. 18:38 Back: No spinal tenderness. No costovertebral tenderness. Full range of motion. Skin: Warm, dry with normal turgor. Normal color with no rashes, no lesions, and no evidence of cellulitis. MS/ Extremity: Pulses equal, no cyanosis. Neurovascular intact. Full, normal range of motion. Neuro: Awake and alert, GCS 15, oriented to person, place, time, and situation. Cranial nerves II-XII grossly intact. Motor strength 5/5 in all extremities. Sensory grossly intact. Cerebellar exam normal. Normal gait. Psych: Awake, alert, with orientation to person, place and time. Behavior, mood, and affect are within normal limits. 18:38 Constitutional: The patient appears awake, frail, obese, pale, uncomfortable, + chills, rigors 18:38 Respiratory: the patient does not display signs of respiratory distress, Respirations: tachypnea, that is moderate, Breath sounds: are clear throughout, 18:43 Abdomen/GI: right nephrectomy in October, Vital Signs: 18:13 BP 103 / 53; Pulse 88; Resp 20; Temp 98.2; Pulse Ox 100% ; Weight 129.27 kg; Height 6 jl7 ft. 0 in. ; Pain 0/10; 19:00 BP 95 / 54; Pulse 88; Resp 20; Temp 98.2(O); Pulse Ox 100% on R/A; eh3 20:21 BP 95 / 48; Pulse 95; Resp 18; Pulse Ox 94% ; bp 21:44 BP 108 / 60; Pulse 93; Resp 16; Pulse Ox 100% ; bp 22:30 BP 108 / 47; Pulse 92; Resp 15; Pulse Ox 97% ; bp 23:04 BP 115 / 68; Pulse 97; Resp 18; Pulse Ox 98% ; bp 18:13 Body Mass Index 38.65 (129.27 kg, 182.88 cm) [facility] 18:13 Pain Scale: Adult [facility] MDM: 17:57 Patient medically screened. snw 18:42 Data reviewed: vital signs, nurses notes, lab test result(s), radiologic studies. snw Counseling: I had a detailed discussion with the patient and/or guardian regarding the historical points, exam findings, and any diagnostic results supporting the discharge/admit diagnosis. 18:59 Differential diagnosis: urinary tract infection, sepsis, medication side effect - snw hypotension. 19:55 Management of patient was discussed with the following: Hospitalist: Sinan Chase. snw Response to treatment: the patient's symptoms have mildly improved after treatment. 20:54 Consideration of Admission/Observation Patient was admitted/placed on observation. ED cp3 course: REPEAT BP 110/65, CT SHOWS MESENTERIC STRANDING CHRONIC VS IDIOPATHIC. 06/08 18:13 Order name: Blood Culture Adult (2) [facility] 06/08 18:13 Order name: CBC with Diff; Complete Time: 20:53 [facility] 06/08 18:13 Order name: CMP; Complete Time: 18:48 [facility] 06/08 18:13 Order name: Lactate w/ 2H reflex if indic.; Complete Time: 18:48 [facility] 06/08 18:13 Order name: Protime (+inr); Complete Time: 18:36 [facility] 06/08 18:13 Order name: Ptt, Activated; Complete Time: 18:36 [facility] 06/08 20:06 Interpretation: PTT 45.1. cp3 06/08 18:13 Order name: Troponin High Sensitivity; Complete Time: 18:48 [facility] 06/08 18:45 Order name: Urine Culture formerly [facility] 06/08 18:45 Order name: UAM; Complete Time: 20:05 formerly [facility] 06/08 20:44 Order name: CBC Smear Scan; Complete Time: 20:53 EDMS 06/08 21:42 Order name: SARS RAPID sp4 06/08 21:42 Order name: Influenza Screen (a \T\ B) 4 06/08 19:32 Order name: Abdomen ; Complete Time: 20:13 EDMS 06/08 18:13 Order name: EKG; Complete Time: 18:14 [facility] 06/08 18:13 Order name: Accucheck; Complete Time: 18:55 [facility] 06/08 18:13 Order name: Cardiac monitoring; Complete Time: 18:40 [facility] 06/08 18:13 Order name: EKG - Nurse/Tech; Complete Time: 18:40 06/08 18:13 Order name: IV Saline Lock - Large Bore; Complete Time: 18:55 06/08 18:13 Order name: Labs collected and sent; Complete Time: 18:55 [facility] 06/08 18:13 Order name: O2 Per Protocol; Complete Time: 18:55 06/08 18:13 Order name: O2 Sat Monitoring; Complete Time: 18:55 06/08 18:13 Order name: Vital Signs; Complete Time: 18:55 EC:38 Rate is 86 beats/min. Rhythm is regular. QRS [place] is Normal. QRS interval is normal. Q snw waves are Present in lead III. Clinical impression: NSR w/ Non-specific ST/T Changes. Administered Medications: 19:01 Drug: NS 0.9% IV 1000 ml IV at 125 ml/hr continuous Route: IV; Rate: 125 ml/hr; Site: [facility]; 23:05 Follow up: IV Status: Infusion continued upon admission bp 19:01 Drug: NS 0.9% IV 500 ml IV at bolus once Route: IV; Rate: bolus; Site: right wrist; [facility] 23:05 Follow up: IV Status: Completed infusion; IV Intake: 500ml bp 19:50 Drug: NS 0.9% IV 500 ml IV at bolus once Route: IV; Rate: bolus; Site: right forearm; bp 23:05 Follow up: IV Status: Completed infusion; IV Intake: 500ml bp 19:50 Drug: Acetaminophen PO 1000 mg PO once Route: PO; bp 22:33 Follow up: Response: No adverse reaction bp 19:50 Drug: Piperacillin-Tazobactam IVPB 3.375 grams IVPB once over 60 mins; (mix in NS 100 bp mL) Route: IVPB; Infused Over: 60 mins; Site: right forearm; 23:05 Follow up: IV Status: Completed infusion; IV Intake: 100ml bp Disposition: 19:47 Co-signature as Attending Physician, Eros Rizzo MD I agree with the assessment and cp3 plan of care. Disposition Summary: 06/08/23 19:19 Hospitalization Ordered Notes: Hospitalization Status: Inpatient Admission snw Provider: Liu Archer snw Location: Telemetry/MedSurg (Inpatient) snw Condition: Fair snw Problem: new snw Symptoms: have worsened snw Bed/Room Type: Standard snw Room Assignment: 222(06/08/23 22:44) cg Diagnosis - Severe sepsis without septic shock snw - Adverse effect of other drugs, medicaments and biological substances snw Forms: - Medication Reconciliation Form snw - SBAR form snw - Leadership Thank You Letter snw Signatures: Dispatcher [employer] EDMS Veronica Garcia, DRAWER HARDWARE WORKER-C DRAWER HARDWARE WORKER-Csnw Eros Rizzo MD MD cp3 Anamaria Robledo, RN RN cg Krystal Melvin, RN RN jl7 Darren Calabrese RN RN bp Sara Whitley, RN RN eh3 Corrections: (The following items were deleted from the chart) 18:45 18:38 Constitutional: The patient appears awake, frail, obese, pale, uncomfortable, snw snw 18:45 18:38 Respiratory: the patient does not display signs of respiratory distress, snw Respirations: tachypnea, that is moderate, Breath sounds: are clear throughout, snw 18:45 18:38 Abdomen/GI: Inspection: obese Bowel sounds: normal, Palpation: moderate abdominal snw tenderness, in the right groin, snw 18:59 18:42 Differential diagnosis: appendicitis, diverticulitis, Ureterolithiasis, hematoma, snw abscess snw 19:32 18:14 Abdomen W/ Con+CT.RAD.BRZ ordered. EDMS EDMS 21:52 19:19 snw cg 22:41 21:52 224 cg cg 22:44 22:41 cg cg
--- NOTE | 2023-06-08 19:19 | ER ---
Nurse's Notes [facility] Name: Missael Quinteros Age: 52 yrs Sex: Male : 1970 Arrival Date: 06/08/2023 Time: 17:49 Bed 17 Private MD: Diagnosis: Severe sepsis without septic shock;Adverse effect of other drugs, medicaments and biological substances Presentation: 06/08 18:10 Chief complaint: Patient states: Weakness and dizziness since this morning. jl7 18:13 Coronavirus screen: Client presents with at least one sign or symptom that may indicate jl7 coronavirus-19. Ebola Screen: No symptoms or risks identified at this time. Initial Sepsis Screen: Does the patient meet any 2 criteria? No. Patient's initial sepsis screen is negative. Does the patient have a suspected source of infection? No. Patient's initial sepsis screen is negative. Risk Assessment: Do you want to hurt yourself or someone else? Patient reports no desire to harm self or others. Onset of symptoms was June 08, 2023. 18:13 Method Of Arrival: Wheelchair jl7 18:13 Acuity: BOBBY 2 jl7 Triage Assessment: 18:17 General: Appears in no apparent distress. uncomfortable, ill, Behavior is calm, jl7 cooperative, appropriate for age. Pain: Denies pain. Historical: - Allergies: 18:17 No Known Allergies; jl7 - PMHx: 18:17 DM; Hypertensive disorder; kidney cancer; jl7 - PSHx: 18:17 right kidney removal due to cancer; jl7 - Immunization history:: Adult Immunizations unknown. - Social history:: Smoking status: Patient/guardian denies using tobacco. Screenin:29 [facility] ED Fall Risk Assessment (Adult) History of falling in the last 3 months, bp including since admission No falls in past 3 months (0 pts). Abuse screen: Denies threats or abuse. Denies injuries from another. Nutritional screening: No deficits noted. Tuberculosis screening: No symptoms or risk factors identified. Assessment: 18:15 General: Appears distressed, uncomfortable, Behavior is cooperative, appropriate for eh3 age, restless. Pain: Denies pain. Neuro: Level of Consciousness is awake, alert, obeys commands, Oriented to person, place, time, situation. Neuro: Reports dizziness, weakness. Cardiovascular: Capillary refill < 3 seconds Patient's skin is warm and dry. Respiratory: Airway is patent Respiratory effort is even, unlabored, Respiratory pattern is regular, symmetrical. GI: Abdomen is round non-distended. Derm: Skin is pink, warm \T\ dry. Musculoskeletal: Circulation, motion, and sensation intact. 19:00 Reassessment: Patient appears in no apparent distress at this time. Patient and/or eh3 family updated on plan of care and expected duration. Pain level reassessed. Patient is alert, oriented x 3, equal unlabored respirations, skin warm/dry/pink. Vital Signs: 18:13 BP 103 / 53; Pulse 88; Resp 20; Temp 98.2; Pulse Ox 100% ; Weight 129.27 kg; Height 6 jl7 ft. 0 in. ; Pain 0/10; 19:00 BP 95 / 54; Pulse 88; Resp 20; Temp 98.2(O); Pulse Ox 100% on R/A; eh3 20:21 BP 95 / 48; Pulse 95; Resp 18; Pulse Ox 94% ; bp 21:44 BP 108 / 60; Pulse 93; Resp 16; Pulse Ox 100% ; bp 22:30 BP 108 / 47; Pulse 92; Resp 15; Pulse Ox 97% ; bp 23:04 BP 115 / 68; Pulse 97; Resp 18; Pulse Ox 98% ; bp 18:13 Body Mass Index 38.65 (129.27 kg, 182.88 cm) jl7 18:13 Pain Scale: Adult 7 ED Course: 17:50 Patient arrived in ED. mr 17:51 Veronica Garcia FNP-C is [facility]. snw 17:51 Eros Rizzo MD is Attending Physician. snw 18:15 Inserted saline lock: 20 gauge in right wrist, using aseptic technique. Blood eh3 collected. IV inserted by FAITH Santos. 18:17 Triage completed. jl7 18:17 Arm band placed on right wrist. jl7 18:24 Sara Whitley, SUGEY is Primary Nurse. eh3 18:55 Second set of blood cultures drawn by nv. eh3 18:55 Inserted saline lock: 22 gauge in left antecubital area, using aseptic technique. Blood eh3 collected. 19:18 Liu Archer MD is Hospitalizing Provider. snw 19:26 Primary Nurse role handed off by Sara Whitley, SUGEY bp 19:26 Darren Calabrese, RN is Primary Nurse. bp 19:36 Abdomen In Process Unspecified. EDMS 21:40 Attending Physician role handed off by Eros Rizzo MD sp4 21:40 Roddy Mccord MD is Attending Physician. sp4 22:31 Patient has correct armband on for positive identification. Bed in low position. Call bp light in reach. 22:31 No provider procedures requiring assistance completed. Patient admitted, IV remains in bp place. 23:04 Provided Education on: N/A. bp Administered Medications: 19:01 Drug: NS 0.9% IV 1000 ml IV at 125 ml/hr continuous Route: IV; Rate: 125 ml/hr; Site: 3 right wrist; 23:05 Follow up: IV Status: Infusion continued upon admission bp 19:01 Drug: NS 0.9% IV 500 ml IV at bolus once Route: IV; Rate: bolus; Site: right wrist; 3 23:05 Follow up: IV Status: Completed infusion; IV Intake: 500ml bp 19:50 Drug: NS 0.9% IV 500 ml IV at bolus once Route: IV; Rate: bolus; Site: right forearm; bp 23:05 Follow up: IV Status: Completed infusion; IV Intake: 500ml bp 19:50 Drug: Acetaminophen PO 1000 mg PO once Route: PO; bp 22:33 Follow up: Response: No adverse reaction bp 19:50 Drug: Piperacillin-Tazobactam IVPB 3.375 grams IVPB once over 60 mins; (mix in NS 100 bp mL) Route: IVPB; Infused Over: 60 mins; Site: right forearm; 23:05 Follow up: IV Status: Completed infusion; IV Intake: 100ml bp Medication: 23:04 VIS not applicable for this client. bp Intake: 23:05 IV: 100ml; Total: 100ml. bp 23:05 IV: 500ml; Total: 600ml. bp 23:05 IV: 500ml; Total: 1100ml. bp Outcome: 19:19 Decision to Hospitalize by Provider. snw 22:31 Condition: stable bp 22:31 Instructed on the need for admit, 22:36 Admitted to Med/surg accompanied by tech, via stretcher, room 224, with chart, Report bp called to SEPIDEH RN 23:49 Patient left the ED. bp Signatures: Dispatcher [employer] EDMS Veronica Garcia, HIGHER EDUCATION ADMINISTRATOR-C HIGHER EDUCATION ADMINISTRATOR-Csnw Luisa Hagan, Reg Reg mr Krystal Melvin, RN RN jl7 Darren Calabrese RN RN Sara Alonzo, SUGEY RN eh3 Roddy Mccord MD MD sp4
[2023-06-08] MEDS ORDERED: PIPERACIL/TAZO 3.375 GM VIAL IV ONE (19:55)
[2023-06-08] MEDS ORDERED: ACETAMINOPHEN 500 MG TAB ONE (19:55)
[2023-06-08 20:05] LABS: Specific Gravity 1.011 (1.005-1.030); Urine Bacteria None Seen /HPF (<20); Urine Bilirubin NEGATIVE (Negative); Urine Blood Negative (Negative); Urine Clarity Clear (Clear); Urine Color Light-Yellow (Yellow); Urine Glucose NEGATIVE (Negative); Urine Mucus Slight /HPF (None Seen); Urine Protein NEGATIVE (Negative); Urine RBC <5 /HPF (None Seen); Urine Urobilinogen Normal (Normal); Urine pH 5.5 (5.0-7.0)
--- NOTE | 2023-06-08 20:06 | RAD REPORT ---
EXAM DESCRIPTION: CT - Abdomen Pelvis Wo Contrast - 06/08/2023 7:35 pm CLINICAL HISTORY: ABD PAIN COMPARISON: Abdomen Pelvis W/Wo Contrast dated 05/13/2023; Abdomen Pelvis W Contrast dated 023; Abdomen 1 View (KUB) dated 11/03/2022; Mri Abdomen W/Wo Cont dated 10/09/2022 TECHNIQUE: Thin cut axial CT imaging of the abdomen and pelvis was performed without IV contrast. Mu ltiplanar reformats were generated and reviewed. All CT scans are performed using dose optimization technique as appropriate and may include automated exposure control or mA/KV adjustment according to patient size. FINDINGS: No suspicious findings in the lung bases. The liver, spleen, adrenal glands, and pancreas show no suspicious findings. Gallbladder and biliary tree are also without suspicious finding. Status post right nephrectomy. No suspicious left renal parenchymal findings within limits of noncont rast technique. Small left upper pole cyst with wall calcifications, stable. No evidence of radiopaqu e calculi or hydroureteronephrosis. No dilated bowel loops or bowel wall thickening. Colonic diverticulosis. No free air, free fluid or i nflammatory stranding. Small left inguinal hernia containing fat. Nonspecific central mesenteric mild fat stranding. No suspicious mass or bulky lymphadenopathy. The urinary bladder is without significa nt finding. Mild prostatomegaly. No suspicious bony findings. IMPRESSION: No acute intra-abdominal process. Central mesenteric fat stranding, nonspecific, could be idiopathic or related sequelae of prior treat ment. Status post right nephrectomy, and other stable findings as above.
[2023-06-08 20:43] LABS: White Blood Cell Scan OK (OK)
[2023-06-08 20:44] LABS: Anisocytosis 1+; Blood Morphology Comment NOTED (NOT SEEN); Platelet Estimate ADEQ; Poikilocytosis 1+
--- NOTE | 2023-06-08 21:53 | P.HP ---
Certification for Inpatient Patient admitted to: Inpatient With expected LOS: <2 Midnights Patient will require the following post-hospital care: None Practitioner: I am a practitioner with admitting privileges, knowledge of patient current condition, hospital course, and medical plan of care. Services: Services provided to patient in accordance with Admission requirements found in Title 42 Section 412.3 of the Code of Federal Regulations Patient History Date of Service: 06/08/23 Reason for admission: weakness History of Present Illness: 52-year-old male with a past medical history of right renal carcinoma, with right nephrectomy, hypertension presents to the emergency room with weakness and dizziness. He reports fever today of 103.0, reports associated chills, reports weakness unable to walk independently. He reports chemo with Dr. Miller 2 weeks ago. He reports right nephrectomy in October with Dr. Fletcher. He denies chest pain, abdominal pain, shortness of breath, edema, dysuria. Plan to admit for sepsis without septic shock, Adverse effect of other drugs, medicaments and biological substances. ER lab evaluation EKG Rate is 86 beats/min. Rhythm is regular. QRS [place] is Normal. QRS interval is normal. Q waves are Present in lead III. Clinical impression: NSR w/ Non-specific ST/T Changes. BP 95 / 54; Pulse 88; Resp 20; Temp 98.2(O); Pulse Ox 100% on R/A; laboratory evaluation hyponatremia 129 hypokalemia 3.2 acute kidney injury BUN 12, creatinine 1.58, WBCs 3.80, hematin hemoglobin hematocrit stable, 12.7, 37.0, UA negative CT of the abdomen pelvis IMPRESSION: No acute intra-abdominal process.Central mesenteric fat stranding, nonspecific, could be idiopathic or related sequelae of prior treatment.Status post right nephrectomy, and other stable findings as above, CT of the chest FINDINGS: The evaluation of mediastinum, aaliyah and vessels is limited secondary to lack of IV contrast administration. Lungs are clear. No mediastinal or hilar lymphadenopathy.Substernal thyroid unchanged A pleural effusion is not present. A pericardial effusion is not seenIMPRESSION: No evidence of metastatic disease Allergies No Known Allergies Allergy (Verified 10/15/22 12:05) Home Medications: Losartan Potassium 1 tab PO DAILY 10/29/22 Lovastatin 1 tab PO DAILY 10/29/22 Metformin ER [Glucophage ER*] 500 mg PO DAILY 10/29/22 Tadalafil [Cialis] 10 mg PO PRN 10/29/22 Tamsulosin [Flomax*] 1 cap PO DAILY 10/29/22 hydroCHLOROthiazide [Hydrochlorothiazide] 25 mg PO DAILY 10/29/22 Polyethyl Gly 3350 [Glycolax*] 17 gm PO DAILY PRN #1 udbot 11/02/22 traMADol HCL [Ultram*] 50 mg PO TID PRN #15 tab 11/02/22 - Past Medical/Surgical History -: DM -: HTN -: Renal carcinoma with right nephrectomy -: Right nephrectomy October [address]22 Dr. Fletcher - Social History Smoking Status: Never smoker Alcohol use: No CD- Drugs: No Caffeine use: No Review of Systems 10-point ROS is otherwise unremarkable Physical Examination - Physical Exam General: Alert, Oriented x3, Other (Pale, appears ill) HEENT: Atraumatic, Normocephalic, PERRLA Neck: Supple, 2+ carotid pulse no bruit, JVD not distended Respiratory: Clear to auscultation bilaterally, Normal air movement Cardiovascular: No edema, Normal pulses, Regular rate/rhythm Capillary refill: <2 Seconds Gastrointestinal: Normal bowel sounds, Soft and benign Musculoskeletal: No clubbing, No swelling, Other (Moderate generalized weakness) Neurological: Normal speech, Normal strength at 5/5 x4 extr - Studies Laboratory Data (last 24 hrs) 06/08/23 06/08/23 06/08/23 18:13 18:13 18:13 WBC 3.80 L Hgb 12.7 L Hct 37.0 L Plt Count 277 PT 13.5 H INR 1.23 APTT 45.1 H Sodium 129 L Potassium 3.2 L BUN 12 Creatinine 1.58 H Glucose 86 Total Bilirubin 0.7 AST 32 ALT 32 Alkaline Phosphatase 48 Assessment and Plan - Plan Assessment plan Sepsis without shock Right renal carcinoma with nephrectomy Adverse effect of other drugs, medicaments and biological substances Acute on chronic kidney injury Hyponatremia Hypokalemia Weakness Essential hypertension [facility] Sepsis without shock Right renal carcinoma with nephrectomy on chemotherapy Acute on chronic kidney injury Blood cultures, urine cultures, trend lactic, COVID and flu ordered IV fluids, IV antibiotics He reports chemo with Dr. Miller 2 weeks ago. He reports right nephrectomy in October with Dr. Fletcher. BP 95 / 54; Pulse 88; Resp 20; Temp 103.0(O); Pulse Ox 100% on R/A; acute kidney injury BUN 12, creatinine 1.58, CT of the abdomen pelvis IMPRESSION: No acute intra-abdominal process.Central mesenteric fat stranding, nonspecific, could be idiopathic or related sequelae of prior treatment.Status post right nephrectomy, and other stable findings as above, CT of the chest FINDINGS: The evaluation of mediastinum, aaliyah and vessels is limited secondary to lack of IV contrast administration. Lungs are clear. No mediastinal or hilar lymphadenopathy.Substernal thyroid unchanged A pleural effusion is not present. A pericardial effusion is not seenIMPRESSION: No evidence of metastatic disease Hyponatremia Hypokalemia Trend electrolytes, replace as needed laboratory evaluation hyponatremia 129 hypokalemia Weakness PT eval for DME needs Essential hypertension EKG Rate is 86 beats/min. Rhythm is regular. QRS [place] is Normal. QRS interval is normal. Q waves are Present in lead III. Clinical impression: NSR w/ Non- specific ST/T Changes. DVT prophylaxis Lovenox Full code Diet cardiac DVT Lovenox Discharge Plan: Home Plan to discharge in: 48 Hours - Advance Directives Does patient have a Living Will: No Does patient have a Durable POA for Healthcare: No - Code Status/Comfort Care Code Status Assessed: Yes Code Status: Full Code Physician Review: Patient Assessed, Agree with Above Assessment and Plan Critical Care: No Time Spent Managing Pts Care (In Minutes): 50
[2023-06-08 22:35] LABS: SARS-CoV-2 Antigen Rapid Res Positive (Negative)
[2023-06-08] MEDS ORDERED: POTASSIUM 25 MEQ EFFERV TAB PO ONE (23:38)
[2023-06-08] MEDS ORDERED: ZOLPIDEM TARTRATE 5 MG TABLET PO PRN (23:38)
[2023-06-08] MEDS ORDERED: ONDANSETRON 4 MG/2 ML VIAL IV PRN (23:38)
[2023-06-08] MEDS ORDERED: NA CHLORIDE 0.9% 1,000 ML IV SCH (23:38)
[2023-06-08 23:45] VITALS: BMI 38.3
[2023-06-08 23:54] VITALS: O2SAT 97
[2023-06-08] MEDS: ACETAMINOPHEN 500 MG TAB PO PRN (23:59)
[2023-06-09 02:24] LABS: Potassium 3.8 mEq/L (3.5-5.1)
[2023-06-09 02:27] LABS: Absolute Lymphocytes (CBC) 0.8 K/uL (0.7-4.9); Lymphocytes % 20.5 % (15.3-44.8); MCV 86.5 fL (80-100); MPV 8.1 fL (7.6-11.3); Platelets 242 thou/uL (152-406); RBC Red Blood Cell Count 3.94 M/uL (4.33-5.43)
[2023-06-09] MEDS: PIPER TAZO 3.375 GM in NA CHLORIDE 0.9% 100 ML IV SCH ×2 (04:24→12:07)
[2023-06-09 05:22] LABS: Specific Gravity 1.006 (1.005-1.030); Urine Bacteria None Seen /HPF (<20); Urine Bilirubin NEGATIVE (Negative); Urine Blood Negative (Negative); Urine Clarity Clear (Clear); Urine Color Colorless (Yellow); Urine Glucose NEGATIVE (Negative); Urine Mucus Slight /HPF (None Seen); Urine Protein NEGATIVE (Negative); Urine RBC None Seen /HPF (None Seen); Urine Urobilinogen Normal (Normal)
[2023-06-09] MEDS ORDERED: POTASSIUM CL SA 10 MEQ TAB PO ONE (09:00)
[2023-06-09] MEDS ORDERED: ENOXAPARIN 40 MG/0.4 ML SQ SCH (09:00)
[2023-06-09] MEDS: ACETAMINOPHEN 500 MG TAB PO PRN (10:23)
[2023-06-09 12:16] VITALS: BP 117/65; TEMP 99.2
--- NOTE | 2023-06-09 13:50 | P.DS ---
Admission Date: 06/08/23 Discharge Date: 06/09/23 Disposition: ROUTINE DISCHARGE Discharge Condition: FAIR Reason for Admission: weakness - Problems (1) COVID-19 virus infection Current Visit: Yes Status: Acute (2) Clear cell renal cell carcinoma Current Visit: No Status: Acute Brief History of Present Illness: 52-year-old male with a past medical history of right renal carcinoma, with right nephrectomy, hypertension presented to the emergency room with weakness and dizziness. He reported fever of 103.0, reports associated chills, reports weakness unable to walk independently. He reports chemo with Dr. Miller 2 weeks ago. He reported right nephrectomy in October with Dr. Fletcher. He denied chest pain, abdominal pain, shortness of breath, edema, dysuria. ER lab evaluation: hyponatremia 129 hypokalemia 3.2, creatinine 1.58, WBCs 3.80, UA negative, CT of the abdomen pelvis: No acute intra-abdominal process. Central mesenteric fat stranding, nonspecific, could be idiopathic or related sequelae of prior treatment. Status post right nephrectomy, CT of the chest: Lungs are clear. No mediastinal or hilar lymphadenopathy. Substernal thyroid unchanged. No evidence of metastatic disease. Patient was hospitalized for further management. Hospital Course: Patient was placed on observation on the medical floor and treated with supportive measures. His CBC is significant for monocytosis which indicates possible viral infection which correlated with his COVID-positive status. No leukocytosis. Patient started on oral dexamethasone. He tolerated diet, his vitals were stable. His only complaint was generalized weakness. She did experience low-grade fever. Patient has been stable on room air with stable vitals. His symptoms deemed related to COVID-19 infection. Patient is deemed stable for discharge. Patient states he takes immunosuppressant Keytruda. He is likely not a good candidate for Lagevrio therapy. Vital Signs/Physical Exam: Temp Pulse Resp BP Pulse Ox 99.2 F 100 H 20 117/65 92 06/09/23 12:00 06/09/23 12:00 06/09/23 12:00 06/09/23 12:06/09/23 12:00 General: Alert, In no apparent distress, Oriented x3 HEENT: Mucous membr. moist/pink Neck: Supple, JVD not distended Respiratory: Clear to auscultation bilaterally, Normal air movement Cardiovascular: No edema, Regular rate/rhythm, Normal S1 S2 Gastrointestinal: Normal bowel sounds, Soft and benign, Non-distended, No tenderness Musculoskeletal: No swelling Integumentary: No rashes Neurological: Normal speech, Normal strength at 5/5 x4 extr Laboratory Data at Discharge: WBC 3.70 thou/uL (4.3-10.9) L 06/09/23 01:43 Hgb 11.6 g/dL (13.6-17.9) L D 06/09/23 01:43 Hct 34.0 % (39.6-49.0) L 06/09/23 01:43 Plt Count 242 thou/uL (152-406) 06/09/23 01:43 PT 13.5 SECONDS (9.5-12.5) H 06/08/23 18:13 INR 1.23 06/08/23 18:13 APTT 45.1 SECONDS (24.3-36.9) H 06/08/23 18:13 Sodium 131 mEq/L (136-145) L 06/09/23 01:43 Potassium 3.8 mEq/L (3.5-5.1) D 06/09/23 01:43 BUN 13 mg/dL (7-18) 06/09/23 01:43 Creatinine 1.55 mg/dL (0.70-1.30) H 06/09/23 01:43 Glucose 88 mg/dL (74-106) 06/09/23 01:43 Magnesium 2.0 mg/dL (1.6-2.4) 06/09/23 01:43 Total Bilirubin 0.7 mg/dL (0.2-1.0) 06/08/23 18:13 AST 32 U/L (15-37) 06/08/23 18:13 ALT 32 U/L (16-61) 06/08/23 18:13 Alkaline Phosphatase 48 U/L (45-117) 06/08/23 18:13 Home Medications: Losartan Potassium 1 tab PO DAILY 10/29/22 Lovastatin 1 tab PO DAILY 10/29/22 Metformin ER [Glucophage ER*] 500 mg PO DAILY 10/29/22 Tadalafil [Cialis] 10 mg PO PRN 10/29/22 Tamsulosin [Flomax*] 1 cap PO DAILY 10/29/22 hydroCHLOROthiazide [Hydrochlorothiazide] 25 mg PO DAILY 10/29/22 Polyethyl Gly 3350 [Glycolax*] 17 gm PO DAILY PRN #1 udbot 11/02/22 traMADol HCL [Ultram*] 50 mg PO TID PRN #15 tab 11/02/22 Ascorbic Acid [Vitamin C] 1,000 mg PO BID #60 tab 06/09/23 dexAMETHasone [Dexamethasone] 4 mg PO DAILY #7 tab 06/09/23 New Medications: dexAMETHasone [Dexamethasone] 4 mg PO DAILY #7 tab Ascorbic Acid [Vitamin C] 1,000 mg PO BID #60 tab Time spent managing pt's care (in minutes): 27
--- NOTE | 2023-06-10 14:39 | EKG ---
Test Date: 2023-06-08 Test Time: 18:38:08 Structures Engineer: ANNA MEASUREMENT RESULTS: Intervals: Rate: 86 OR: 160 QRSD: 110 QT: 398 QTc: 476 [place]: P: 21 OR: 160 QRS: -11 T: 13 INTERPRETIVE STATEMENTS: Normal sinus rhythm Low voltage QRS Inferior infarct, age undetermined Abnormal ECG Compared to ECG 05/11/2023 21:50:23 Low QRS voltage now present Left anterior fascicular block no longer present Myocardial infarct finding still present Electronically Signed On 06-10-23 14:33:33 CDT by Marcelo Parks
== END 2023-06-09 14:16 | disposition home or self-care (01) ==
LOC: ER 17:49 → 2ND 21:46 → INTOOBSV 21:46
PROVIDERS: ADMIT Internal Medicine; ATTEND Internal Medicine
DX: U07.1 COVID-19 (principal); A41.9 Sepsis, unspecified organism; N17.9 Acute kidney failure, unspecified; E87.1 Hypo-osmolality and hyponatremia; I10 Essential (primary) hypertension; R42 Dizziness and giddiness; E87.6 Hypokalemia; Z90.5 Acquired absence of kidney; Z85.528 Personal history of other malignant neoplasm of kidney
CPT/HCPCS: 96365; 96361; 93005; 87040 ×2; 87088; 85025 ×2; 81001 ×2; 87086; 80048; 36415; 83735; 85610; 83605 ×3; 85730; 84484; 80053; 87804 ×2; 74176; 97116; 97161; 97530; 99285; 96366; 87811; J2543 ×3; J1650; J7040 ×2; J7030 ×3; G0378

== ENCOUNTER 2023-07-26 10:25 | Emergency (ER) | payer OTHER ==
--- OUTSIDE RECORDS SUMMARY | 2023-07-26 10:29 | XMS REPORT | Continuity of Care Document ---
:1970 Author Organization [facility] t Address [address] [place] [address] Care Team Providers Name Role Phone ARMANI SPRINGER JR E Primary Care Physician Unavailable Armani Springer Attending Clinician Unavailable HPUONG STEWART Attending Clinician Unavailable Phuong Salinas Attending Clinician EMERY DOBSON Attending Clinician Unavailable Emery Dias Attending Clinician EMERY DOBSON Admitting Clinician Unavailable Payers Payer Name Policy Type Policy Number Effective Date Expiration Date S eitan VARNERR FROM [id number] 2022 [facility] 00:00:00 Problems Condition Condition Condition Status Onset Resolution Last Treating Co mments Source Name Details Category Date Date Treatment Clinician Date No known No known Disease Unive rs active active ity of problems problems [facility] 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 - CHI kidney [facility] Disorder Renal Problem Common of kidney mass, Spirit and/or right - CHI ureter [facility] Extreme Morbid Problem Common obesity (severe) Spirit with obesity - [facility]I alveolar with St hypoventil alveolar Luke s ation hypoventil Medica l [facility] [phone] Renal cell Problem Co mmon carcinoma Spirit of right - CHI kidney [facility] [id number] S/p Problem Commo n 9104 nephrectom Spirit y - CHI [facility] [id number] Microscopi Problem Co mmon c [facility] hematuria [facility] [id number] BPH loc w Problem Com mon urin Spirit obs/LUTS [facility] [id number] Right Problem Common renal mass [facility] Allergies, Adverse Reactions, Alerts Allergy Allergy Status Severity Reaction(s) Onset Inactive Treating Comm ents Source Name Type Date Date Clinician NO KNOWN Drug Active Univers ALLERGIE Class ity of [facility] Social History Social Habit Start Date Stop Date Quantity Comments Source Sexual orientation Univer [facility] History of Tobacco Current Smoker Co mmon Spirit - Use [facility] Sex Assigned At Common Sp radha - [facility] Exposure to 2022-06-26 2022-07-06 Not sure University SARS-CoV-2 (event) 00:00:00 11:32:00 [facility] Smoking Status Start Date Stop Date Source Tobacco smoking consumption Univ [facility] Current Smoker 2023-05-05 00:00:00 Common Spiri t [facility] nter Medications Ordered Filled Start Stop Current Ordering Indication Dosage Frequency Signature Comments Components Source Medication Medication Date Date Medication? Clinician (SIG) Name Name NaCl 0.9% 2022-09 No 1000mL at 999 Uni vers (NS) bolus 1-04 11-04 mL/hr, ity of infusion 22:45: 22:56 1,000 mL, Merrick as 1,000 mL 00 :00 IV Medical Infusion, Branch ONCE, 1 dose, On 07/25/23 at 1745, STAT azithromyci 2022-09 Yes [id number] 250mg Take 1 Univers n 250 mg 1-04 tablet by ity of tablet 00:00: mouth in [place] 00 the Medical morning. Branch Uroxatral Uroxatral No 1{table QD Uroxatral 10 MG 10 MG 8-15 t_immed 10 MG 00:00: iately_ 00 after_t he_same _meal} Uroxatral Uroxatral No 1{table QD Uroxatral 10 MG 10 MG 8-15 t_immed 10 MG 00:00: iately_ 00 after_t he_same _meal} ketorolac 2022-1 2022- No 30mg 30 mg, Unive rs (TORADOL) 0-16 10-16 Slow IV ity of injection 16:45: 16:36 Push, [place] 30 mg 00 :00 ONCE, 1 Medical dose, On Branch 07/06/22 at 1145, Routine No known 2021-09 No No known Unive rs medications 0-16 medication it y of 11:20: s [place] 05 [facility] Losartan Losartan No 1{table QD Losartan Potassium [...] 37.5 MG le} e HCl 37.5 MG Phentermine Phentermine No 1{capsu QD Phentermin HCl 37.5 MG HCl 37.5 MG le} e HCl 37.5 MG metFORMIN metFORMIN No 1{table QD metFORMIN HCl 500 MG HCl 500 MG t_with_ HCl 500 MG a_meal} Losartan Losartan No 1{table QD Losartan Potassium Potassium t} Potassium 100 MG 100 MG 100 MG hydroCHLORO hydroCHLORO No hydroCHLOR thiazide thiazide Othiazide Lovastatin Lovastatin No Lovastatin Phentermine Phentermine No 1{capsu QD Phentermin HCl 37.5 MG HCl 37.5 MG le} e HCl 37.5 MG metFORMIN metFORMIN No 1{table QD metFORMIN HCl 500 MG HCl 500 MG t_with_ HCl 500 MG a_meal} Losartan Losartan No 1{table QD Losartan Potassium Potassium t} Potassium 100 MG 100 MG 100 MG hydroCHLORO hydroCHLORO No hydroCHLOR thiazide thiazide Othiazide Lovastatin Lovastatin No Lovastatin Vital Signs Vital Name Observation Time Observation Value Comments Source Systolic blood 2023-07-26 00:45:00 96 mm[Hg] Univer [facility] Diastolic blood 2023-07-26 00:45:00 75 [facility]Hg[facility] 2023-07-26 00:45:00 84 /[facility] Respiratory rate 2023-07-26 00:45:00 25 /min [facility] Oxygen saturation in 2023-07-26 00:45:00 100 /min [facility] Arterial blood by [facility] Pulse oximetry Branch Body temperature 2023-07-25 21:24:00 36.28 Carmita [facility] Body weight 2023-07-25 21:24:00 117.935 kg [facility] height 2022-12-10 11:45:00 70 [in_i] [facility] weight 2022-12-10 11:45:00 304 [lb_av] [facility] temperature 2022-12-10 11:45:00 97.7 [degF] [facility] bmi 2022-12-10 11:45:00 43.61 kg/m2 [facility] oximetry 2022-12-10 11:45:00 99 % [facility] respiratory rate 2022-12-10 11:45:00 18 /min Comm on Spirit [facility] blood pressure 2022-12-10 11:45:00 147 mm[Hg] Common Spirit - systolic [facility] blood pressure 2022-12-10 11:45:00 82 mm[Hg] Common [facility] - diastolic [facility] height 2022-10-10 15:00:00 70 [in_i] [facility] weight 2022-10-10 15:00:00 330 [lb_av] [facility] bmi 2022-10-10 15:00:00 47.34 kg/m2 Common S pirit - CHI [facility] Systolic blood 2022-07-06 16:17:00 156 mm[Hg] Univer sity [facility] Diastolic blood 2022-07-06 16:17:00 100 mm[Hg] [facility] Heart rate 2022-07-06 16:17:00 73 /min [facility] Body temperature 2022-07-06 16:17:00 37.06 Carmita [facility] Respiratory rate 2022-07-06 16:17:00 18 /min [facility] Body weight 2022-07-06 16:17:00 140.615 kg [facility] Oxygen saturation in 2022-07-06 16:17:00 99 /min [facility] blood by [facility] Pulse oximetry Branch Procedures Procedure Date / Time Performed Performing Clinician Sourc e XR CHEST 2 VW 2023-07-25 23:22:[facility] 2023-07-25 23:15:00 RandiFormerly [facility] URINALYSIS 2023-07-25 22:54:[facility] CREATINE KINASE 2023-07-25 21:54:00 RandiFormerly [facility] TROPONIN I 2023-07-25 21:54:00 [facility] COMP. METABOLIC PANEL 2023-07-25 21:54:00 Phuong Stewart [facility] ([id number]) [facility] CBC WITH DIFF 2023-07-25 21:54:00 [facility] N-TERMINAL PRO-BNP 2023-07-25 21:54:00 Phuong Stewart [facility] CT ABDOMEN PELVIS WO 2022-07-06 16:45:55 Emery Dobson [facility] Branch LIPASE 2022-07-06 16:25:00 Emery Dobson [facility] COMP. METABOLIC PANEL 2022-07-06 16:25:00 Emery Dobson [facility] ([id number]) [facility] CBC WITH DIFF 2022-07-06 16:25:00 Emery Dobson [facility] URINALYSIS 2022-07-06 16:25:00 Emery Dobson [facility] NOTICE OF PRIVACY 2022-07-06 16:08:39 Doctor Unassigned, No Univ [facility] PRACTICES Name [facility] CONSENT/REFUSAL FOR 2022-07-06 16:07:48 [facility], [facility] AND Name [facility] Branch TREATMENT Encounters Start End Encounter Admission Attending Care Care Encounter Source Date/Time Date/Time Type Type Clinicians Facility Department ID 2022-10-10 Outpatient DJ Springer STLC [id number] Common 11:56:02 Armani [address] [facility] 2023-07-25 2023-07-25 Emergency X CHAOMAN, [facility] ERT [id number] Univers 16:27:00 19:48:00 [facility] ity [facility] 2023-07-25 2023-07-25 Emergency Chaoman, TRAUMA [id number] Univers 16:27:00 19:48:00 [facility] [id number] [id number] [address] 2022-12-10 2022-12-10 OFFICE STLC STLMLC [id number] Co mmon 00:00:00 00:00:00 VISIT Spirit ESTAB PT - CHI LEVEL 2 [facility] 2022-11-10 2022-11-10 (TEL) STLC STLMLC [id number] Co mmon 00:00:00 00:00:00 Spirit - [facility] 2022-10-15 2022-10-15 (TEL) STLC STLMLC [id number] Co mmon 00:00:00 00:00:00 Spirit - [facility]I [facility] 2022-10-10 2022-10-10 OFFICE STLC STLC [id number] Co mmon 00:00:00 00:00:00 VISIT Spirit ESTAB PT - CHI LEVEL 5 [facility] 2022-07-06 2022-07-06 Emergency X DOBSON, [facility] ERT [id number] Univers 11:22:00 12:49:00 EMERY child of [facility] 2022-07-06 2022-07-06 Emergency Dobson, [facility] [id number] Univers 11:22:00 12:49:00 Emery DUBOSE [id number] i ty [facility] [id number] [facility] [id number] [place] [id number] Branch Results Test Description Test Time Test Comments Results Result Comments Source D-DIMER 2023-07-25 23:29:28 Test Item Value Reference Range Interpretation Comme nts D-DIMER (test code = 0.50 See_Comment H [Autom ated message] The 7918630325) system which ge nerated this result tra nsmitted reference range : <0.50 ?g/mL (FEU). Th e reference range was not used to interpr et this result as normal/abnormal . PAUL (test code = PAUL) This test may be used in conjunction with a clinical pretest probability (PTP) assessment model to exclude venous thromboembolism (VTE) in patients suspected of deep venous thrombosis (DVT) and pulmonary embolism (PE) A D-Dimer value less than 0.50 ?g/ml (FEU) has a negative predicative value of 96 to 100% (95% CI)and 97 to 100% (95% CI) as an aid in the diagnosis of deep vein thrombosis (DVT) and pulmonary embolism when there is low or moderate pretest probability of PE or DVT. D-Dimer values are expressed in initial fibrinogen equivalent units (FEU)" The assay results should be used with other information, including the clinical context, in forming a diagnosis. Lab Interpretation Abnormal (test code = 95193-1) [facility] [id number] 22:36:05 Test Item Value Reference Range Interpretation Comments TROPONIN I (test code = 0.011 ng/mL <=0.034 3918033960) PAUL (test code = PAUL) Reference (Normal) Range (defined by the 99th percentile reference limit): <= 0.034 ng/mL Note: Cardiac troponin begins to rise 3-4 hours after the onset of ischemia. Repeat in 4-6 hours if the sample was drawn within 3-4 hours of the onset of the symptom and found normal. Diagnosis of myocardial injury is made with acute changes in cTn concentrations with at least one serial sample above the 99th percentile upper reference limit (URL), taken together with the patient's clinical presentation. Biotin has been reported to cause a negative bias, interpret results relative to patient's use of biotin. Lab Interpretation Normal (test code = 79819-7) [facility]AL [id number] 22:36:05 Test Item Value Reference Range Interpretation Comments NT-proBNP (test code = 412 pg/mL <=125 91725-9) PAUL (test code = PAUL) Result Indeterminate-Consid er causes of NT-proBNP elevation other than Heart failure such as acute coronary syndrome, pulmonary embolism, pulmonary hypertension, sepsis, stroke, and renal dysfunction. Lab Interpretation (test Abnormal code = 32977-9) [facility]OL[facility] PAN[facility] ([id number])2023-07-25 22:26:27 Test Item Value Reference Range Interpretation Comments NA (test code = 132 mmol/L 135-145 L 3546765668) K (test code = 3.4 mmol/L 3.5-5.0 L 8517750717) CL (test code = 96 mmol/L 98-108 L 7560241976) CO2 TOTAL (test code = 21 mmol/L 23-31 L 1407440363) AGAP (test code = 15 2-16 7702620523) BUN (test code = 14 mg/dL 7-23 9716175686) GLUCOSE (test code = 81 mg/dL 70-110 1413491779) CREATININE (test code = 1.56 mg/dL 0.60-1.25 H 6869387968) TOTAL BILI (test code = 0.9 mg/dL 0.1-1.1 1999281199) CALCIUM (test code = 9.8 mg/dL 8.6-10.6 9738644037) T PROTEIN (test code = 6.6 g/dL 6.3-8.2 9599354418) ALBUMIN (test code = 4.2 g/dL 3.5-5.0 6084518903) ALK PHOS (test code = 56 U/L 34-122 1044139425) ALTv (test code = 16 U/L 5-50 1742-6) AST(SGOT) (test code = 27 U/L 13-40 8152238980) eGFR (test code = 52.5 mL/min/1.73m2 CKD-EPI e GFR 54873-4) (2020). Assumin g creatinine has been stable day-to-d ay for at least th ree months, the eGF R indicates Categ ory G3a (45 - 59 mL/min/1.73 m2) Lab Interpretation (test Abnormal code = 24186-1) [facility] [id number] 22:26:27 Test Item Value Reference Range Interpretation Comments CK (test code = 7517424052) 161 U/L 33-194 Lab Interpretation (test code = Normal 69298-2) [facility] WITH [id number] 22:21:06 Test Item Value Reference Range Interpretation Comments WBC (test code = 7.48 See_Comment [Automated 6690-2) message] The sy stem which generated this result transmitted reference range : 4.20 - 10.70 10*3/?L. The reference range was not used to interpret this result as normal/abnormal . RBC (test code = 4.01 See_Comment L [Automated 049-8) message] The sy stem which generated this result transmitted reference range : 4.26 - 5.52 10*6/?L. The reference range was not used to interpret this result as normal/abnormal . HGB (test code = 11.9 g/dL 12.2-16.4 L 718-7) HCT (test code = 33.9 % 38.4-49.3 L 4544-3) MCV (test code = 84.5 fL 81.7-95.6 787-2) MCH (test code = 29.7 pg 26.1-32.7 785-6) MCHC (test code = 35.1 g/dL 31.2-35.0 H 786-4) RDW-SD (test code = 43.1 fL 38.5-51.6 66576-3) RDW-CV (test code = 13.8 % 12.1-15.4 788-0) PLT (test code = 278 See_Comment [Automated 777-3) message] The sy stem which generated this result transmitted reference range : 150 - 328 10*3/ ?L. The reference r anuradha was not used to interpret this result as normal/abnormal . MPV (test code = 10.4 fL 9.8-13.0 14270-0) NRBC/100 WBC (test 0.0 See_Comment [Automat ed code = 6539368978) message] The system which generated this result transmitted reference range : 0.0 - 10.0 /100 WBCs. The refer ence range was not u sed to interpret th is result as normal/abnormal . NRBC x10^3 (test code See_Comment [Auto mated = 7623257813) message] The s ystem which generated this result transmitted reference range : 10*3/?L. The reference range was not used to interpret this result as normal/abnormal . GRAN MAT (NEUT) % 65.8 % (test code = 770-8) IMM GRAN % (test code 0.30 % = 5545329891) LYMPH % (test code = 20.6 % 736-9) MONO % (test code = 10.0 % 5905-5) EOS % (test code = 2.8 % 713-8) BASO % (test code = 0.5 % 706-2) GRAN MAT x10^3(ANC) 4.92 10*3/uL 1.99-6.95 (test code = 4540355194) IMM GRAN x10^3 (test 0.00-0.06 code = 3951835273) LYMPH x10^3 (test code 1.54 10*3/uL 1.09-3.23 = 731-0) MONO x10^3 (test code 0.75 10*3/uL 0.36-1.02 = 742-7) EOS x10^3 (test code = 0.21 10*3/uL 0.06-0.53 711-2) BASO x10^3 (test code 0.04 10*3/uL 0.01-0.09 = 704-7) Lab Interpretation Abnormal (test code = 22445-5) [facility] Met[facility] [id number] 17:00:17 Test Item Value Reference Range Interpretation Comments NA (test code = 137 mmol/L 135-145 1831861091) K (test code = 4.7 mmol/L 3.5-5 0644312321) CL (test code = 98 mmol/L 98-108 4695741527) CO2 TOTAL (test code 28 mmol/L 23-31 = 2927543968) AGAP (test code = 2-16 3332553140) BUN (test code = 12 mg/dL 7-23 3632425269) GLUCOSE (test code = 100 mg/dL 70-110 9694409229) CREATININE (test code 1.09 mg/dL 0.6-1.25 = 8104553563) TOTAL BILI (test code 0.6 mg/dL 0.1-1.1 = 0635100823) CALCIUM (test code = 9.6 mg/dL 8.6-10.6 2121785543) T PROTEIN (test code 7.9 g/dL 6.3-8.2 = 1112163675) ALBUMIN (test code = 4.9 g/dL 3.5-5 8954755856) ALK PHOS (test code = 88 U/L 34-122 8053208324) ALTv (test code = 31 U/L 5-50 1742-6) AST(SGOT) (test code 38 U/L 13-40 = 0786703308) eGFR (test code = mL/min/1.73m2 4086224213) PAUL (test code = PAUL) Association of Glomerular Filtration Rate (GFR) and Staging of Kidney Disease* + + +- +| GFR (mL/min/1.73 m2) ?| With Kidney Damage ?| ?Without Kidney Damage+ ------+ ----+ ------+| ?>90 ?| ?Stage one ?| ? Normal ?+ -+ + -+| ?60-89 ?| ?Stage two ?| ? Decreased GFR ? + + +- +| ?30-59 ?| ?Stage three ?| ? Stage three ? + + +- +| ?15-29 ?| ?Stage four ? | ? Stage four ?+ -+ + -+| ?<15 (or dialysis) ? ?| ?Stage five ? | ? Stage five ?+ -+ + -+ *Each stage assumes the associated GFR level [...] or urine or abnormalities in imaging tests). [facility], [id number] 16:59:57 Test Item Value Reference Range Interpretation Comments LIPASE (test code = 7323768074) 48 U/L 0-220 Lab Interpretation (test code = Normal 82528-6) [facility] with [id number] 16:47:57 Test Item Value Reference Range Interpretation Comments WBC (test code = See_Comment [Automated 7790-2) message] The sy stem which generated this result transmitted reference range : 4.20 - 10.70 10*3/?L. The reference range was not used to interpret this result as normal/abnormal . RBC (test code = See_Comment H [Automated 619-8) message] The sy stem which generated this [...] RDW-SD (test code = 45.4 fL 38.5-51.6 02729-9) RDW-CV (test code = 14.2 % 12.1-15.4 788-0) PLT (test code = See_Comment [Automated 747-3) message] The sy stem which generated this result transmitted reference range : 150 - 328 10*3/ ?L. The reference r anuradha was not used to interpret this result as normal/abnormal . MPV (test code = 10.3 fL 9.8-13 46810-9) NRBC/100 WBC (test See_Comment [Automat ed code = 5152406217) message] The system which generated this result transmitted reference range : 0.0 - 10.0 /100 WBCs. The refer ence range was not u sed to interpret th is result as normal/abnormal . NRBC x10^3 (test code See_Comment [Auto mated = 5028535215) message] The s ystem which generated this result transmitted reference range : 10*3/?L. The reference range was not used to interpret this result as normal/abnormal . GRAN MAT (NEUT) % 61.9 % (test code = 770-8) IMM GRAN % (test code 0.50 % = 7494920059) LYMPH % (test code = 22.5 % 736-9) MONO % (test code = 11.8 % 5905-5) EOS % (test code = 2.7 % 713-8) BASO % (test code = 0.6 % 706-2) GRAN MAT x10^3(ANC) 4.08 10*3/uL 1.99-6.95 (test code = 3976903422) IMM GRAN x10^3 (test 0.03 10*3/uL 0-0.06 code = 0633361957) LYMPH x10^3 (test code 1.48 10*3/uL 1.09-3.23 = 731-0) MONO x10^3 (test code 0.78 10*3/uL 0.36-1.02 = 742-7) EOS x10^3 (test code = 0.18 10*3/uL 0.06-0.53 711-2) BASO x10^3 (test code 0.04 10*3/uL 0.01-0.09 = 704-7) Lab Interpretation Abnormal (test code = 24332-5) [facility]
[2023-07-26 11:01] LABS: Absolute Lymphocytes (CBC) 1.4 K/uL (0.7-4.9); Hematocrit 33.3 % (39.6-49.0); Lymphocytes % 24.6 % (15.3-44.8); MCV 85.4 fL (80-100); Platelets 239 thou/uL (152-406); RBC Red Blood Cell Count 3.89 M/uL (4.33-5.43)
[2023-07-26 11:20] LABS: Potassium 3.4 mEq/L (3.5-5.1); Troponin High Sensitivity 20.6 pg/mL (<58.9)
[2023-07-26 11:23] LABS: SARS-CoV-2 Antigen Rapid Res Negative (Negative)
[2023-07-26] MEDS ORDERED: NA CHLORIDE 0.9% 500 ML ONE ×2 (11:34→13:14)
[2023-07-26 11:38] LABS: Specific Gravity 1.006 (1.005-1.030); Urine Bilirubin NEGATIVE (Negative); Urine Blood Negative (Negative); Urine Clarity Clear (Clear); Urine Color Light-Yellow (Yellow); Urine Glucose NEGATIVE (Negative); Urine Protein NEGATIVE (Negative); Urine Urobilinogen Normal (Normal); Urine pH 5.5 (5.0-7.0)
--- NOTE | 2023-07-26 12:13 | RAD REPORT ---
EXAM DESCRIPTION: Igort Single View07/26/2023 11:23 am CLINICAL HISTORY: diagnosed with pneumonia yesterday, feels worse COMPARISON: Chest Single View dated 05/11/2023; Abdomen 1 View (KUB) dated 11/04/2022; Abdomen 1 View (KUB) dated 11/03/2022; Abdomen 1 View (KUB) dated 11/03/2022 TECHNIQUE: Portable AP view of the chest. FINDINGS: The lungs are clear. Superimposition of soft tissues again limits evaluation. No pneumoth orax or effusion. The cardiomediastinal contours are unremarkable. IMPRESSION: No acute cardiopulmonary process.
--- NOTE | 2023-07-26 13:37 | EDPHYS ---
Physician Documentation [facility] Name: Missael Quinteros Age: 52 yrs Sex: Male : 1970 Arrival Date: 07/26/2023 Time: 10:25 Bed 18 Private MD: ED Physician Randall Jung HPI: 07/26 10:58 This 52 yrs old Male presents to ER via Wheelchair with complaints of Weakness.rn 10:58 The patient presents to the emergency department with weakness of the entire body, rn generalized weakness. Onset: The symptoms/episode began/occurred yesterday. Associated signs and symptoms: Pertinent positives: dizziness, weakness, Pertinent negatives: altered mental status, fever, seizure, syncope, double vision, visual field changes, loss of vision. Severity of symptoms: At their worst the symptoms were moderate in the emergency department the symptoms are unchanged. Current symptoms:. The patient has experienced a previous episode. Patient seen yesterday at [facility], diagnosed with acute kidney injury, dehydration and pneumonia. Patient was discharged home with Zithromax. Patient went to pharmacy today to fill prescription when felt lightheaded and dizzy, near syncope. Reports generalized weakness. No vomiting or diarrhea. No chest pain or shortness of breath.. 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 - Social history:: Smoking status: Patient/guardian denies using tobacco. - Family history:: not pertinent. - Hospitalizations: : No recent hospitalization is reported. ROS: 10:58 Constitutional: Negative for fever, chills, and weight loss, Eyes: Negative for injury, rn pain, redness, and discharge, Neck: Negative for injury, pain, and swelling, Cardiovascular: Negative for chest pain, palpitations, and edema, Respiratory: Negative for shortness of breath, cough, wheezing, and pleuritic chest pain, Abdomen/GI: Negative for abdominal pain, nausea, vomiting, diarrhea, and constipation, Back: Negative for injury and pain, : Negative for injury, bleeding, discharge, and swelling, MS/Extremity: Negative for injury and deformity, Skin: Negative for injury, rash, and discoloration, Neuro: Positive for generalized weakness Exam: 10:58 Constitutional: This is a well developed, well nourished patient who is awake, alert, rn and in no acute distress. Head/Face: Normocephalic, atraumatic. ENT: Dry mucous membranes Neck: No Meningismus. Cardiovascular: Regular rate and rhythm. No pulse deficits. Respiratory: No increased work of breathing, no retractions or nasal flaring. Abdomen/GI: Soft, non-tender Skin: Warm, dry MS/ Extremity: Pulses equal, no cyanosis. Neuro: Awake and alert, GCS 15, oriented to person, place, time, and situation. Cranial nerves II-XII grossly intact. Motor strength 5/5 in all extremities. Sensory grossly intact. Cerebellar exam normal. Vital Signs: 10:42 BP 109 / 59; Pulse 88; Resp 18; Temp 98.1; Pulse Ox 97% ; Weight 117.93 kg; Height 6 cm10 ft. 0 in. ; 11:18 BP 111 / 74; Pulse 81; Resp 16; Pulse Ox 97% on R/A; db 14:00 BP 103 / 70; Pulse 77; Resp 18; Pulse Ox 100% on R/A; db 10:42 Body Mass Index 35.26 (117.93 kg, 182.88 cm) cm10 MDM: 10:33 Patient medically screened. rn 13:35 Data reviewed: vital signs, nurses notes, lab test result(s), EKG, radiologic studies, rn plain films, and as a result, I will discharge patient. Independent interpretation of the following test(s) in the Emergency Department EKG: See my EKG interpretation above X-Ray: My interpretation is X-ray chest images negative for pneumonia per my interpretation. Care significantly affected by the following chronic conditions: Hypertension. Counseling: I had a detailed discussion with the patient and/or guardian regarding the historical points, exam findings, and any diagnostic results supporting the discharge/admit diagnosis, lab results, radiology results, the need for outpatient follow up, to return to the emergency department if symptoms worsen or persist or if there are any questions or concerns that arise at home. Response to treatment: the patient's symptoms have markedly improved after treatment, the patient's condition has returned to base line, the patient is now symptom free, patient is well hydrated. and as a result, I will discharge patient. Special discussion: I discussed with the patient/guardian in detail that at this point there is no indication for admission to the hospital. It is understood, however, that if the symptoms persist or worsen the patient needs to return immediately for re-evaluation. ED course: Patient improved with IV hydration. Did not require any other medication. Patient ambulatory and denies any dizziness. Images reviewed and results reviewed from yesterday's ER visit at outside facility had negative CT head and other blood work without significant changes today. X-ray here does not show the pneumonia that they were seeing yesterday, advised patient takes the Zithromax was given from the other hospital. Patient states feels good and wants to go home. I have personally reviewed all of the results, including but not limited to blood tests and imaging deemed necessary to safely discharge this patient at this time. All results given to and printed out for patient. I personally went over all the results with the patient and answered all questions. Patient will follow-up with PCP and or specialist as discussed. Return precautions given and understood.. 07/26 10:43 Order name: CBC with Diff; Complete Time: 11:47 rn 07/26 10:43 Order name: Basic Metabolic Panel; Complete Time: 11:47 rn 07/26 10:43 Order name: Urinalysis w/ reflexes; Complete Time: 11:47 rn 07/26 10:43 Order name: Flu; Complete Time: 11:47 rn 07/26 10:43 Order name: SARS RAPID; Complete Time: 11:47 rn 07/26 10:43 Order name: Troponin High Sensitivity; Complete Time: 11:47 rn 07/26 10:43 Order name: BNP; Complete Time: 11:47 rn 07/26 10:43 Order name: XRAY Chest (1 view); Complete Time: 12:14 rn 07/26 10:43 Order name: EKG; Complete Time: 10:43 rn 07/26 10:43 Order name: IV Start; Complete Time: 10:56 rn 07/26 10:43 Order name: EKG - Nurse/Tech; Complete Time: 10:56 rn Administered Medications: 11:21 Drug: NS 0.9% IV 500 ml IV at bolus once Route: IV; Rate: bolus; Site: right db antecubital; 14:28 Follow up: Response: No adverse reaction; IV Status: Completed infusion; IV Intake: db 500ml 13:04 Drug: NS 0.9% IV 500 ml IV at bolus once Route: IV; Rate: bolus; Site: right wrist; db 14:15 Follow up: Response: No adverse reaction; IV Status: Completed infusion; IV Intake: db 500ml Disposition Summary: 07/26/23 13:37 Discharge Ordered Notes: Location: Home rn Problem: new rn Symptoms: have improved rn Condition: Stable rn Diagnosis - Dizziness and giddiness rn - Weakness rn Followup: rn - With: Private Physician - When: As needed - Reason: Recheck today's complaints, Re-evaluation by your physician Discharge Instructions: - Dizziness rn - Weakness rn - Discharge Summary Sheet ds4 Forms: - Medication Reconciliation Form rn - Thank You Letter rn - Antibiotic returns clerk - Prescription Opioid Use rn - Patient Portal Instructions rn - Leadership Thank You Letter rn - SBAR form ds4 - Work release form hb Signatures: Dispatcher [employer] Randall Augustin MD MD rn Benton, Danielle RN RN Miriam Dupree RN RN cm10
--- NOTE | 2023-07-26 13:37 | ER ---
Nurse's Notes [facility] Name: Missael Quinteros Age: 52 yrs Sex: Male : 1970 Arrival Date: 07/26/2023 Time: 10:25 Bed 18 Private MD: Diagnosis: Dizziness and giddiness;Weakness Presentation: 07/26 10:42 Chief complaint: Patient states: was seen at [facility] yesterday for generalized cm10 weakness and was diagnosed with pneumonia and RHONDA. Pt states that he came home because he was feeling better. Pt states that this morning he started feeling weak and like he was going to pass out. Coronavirus screen: Vaccine status: Patient reports receiving the 2nd dose of the covid vaccine. Client denies travel out of the [place] in the last 14 days. Ebola Screen: Patient denies travel to an Ebola-affected area in the 21 days before illness onset. No symptoms or risks identified at this time. Initial Sepsis Screen: Does the patient meet any 2 criteria? No. Patient's initial sepsis screen is negative. Does the patient have a suspected source of infection? No. Patient's initial sepsis screen is negative. Risk Assessment: Do you want to hurt yourself or someone else? Patient reports no desire to harm self or others. Onset of symptoms was July 26, 2023. 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 - Social history:: Smoking status: Patient/guardian denies using tobacco. - Family history:: not pertinent. - Hospitalizations: : No recent hospitalization is reported. Screenin:56 [facility] ED Fall Risk Assessment (Adult) History of falling in the last 3 months, kc6 including since admission No falls in past 3 months (0 pts) Confusion or Disorientation No (0 pts) Intoxicated or Sedated No (0 pts) Impaired Gait No (0 pts) Mobility Assist Device Used No (0 pt) Altered Elimination No (0 pt) Score/Fall Risk Level 0 - 2 = Low Risk. Abuse screen: Denies threats or abuse. Denies injuries from another. Nutritional screening: No deficits noted. Tuberculosis screening: No symptoms or risk factors identified. Assessment: 11:00 Reassessment: Patient appears in no apparent distress at this time. Patient and/or db family updated on plan of care and expected duration. Pain level reassessed. Patient is alert, oriented x 3, equal unlabored respirations, skin warm/dry/pink. GENERAL WEAKNESS. General: Appears in no apparent distress. comfortable, Behavior is calm, cooperative. Pain: Denies pain. Neuro: Level of Consciousness is awake, alert, obeys commands. Respiratory: Airway is patent Respiratory effort is even, unlabored, Respiratory pattern is regular, symmetrical. 13:33 Reassessment: PATIENT AMBULATORY IN ER. [facility]. DENIES DIZZINESS. NAD. STATES "I db FEEL GOOD". 14:15 Reassessment: Patient appears in no apparent distress at this time. Patient and/or db family updated on plan of care and expected duration. Pain level reassessed. Patient is alert, oriented x 3, equal unlabored respirations, skin warm/dry/pink. Patient states feeling better. Patient states symptoms have improved. Vital Signs: 10:42 BP 109 / 59; Pulse 88; Resp 18; Temp 98.1; Pulse Ox 97% ; Weight 117.93 kg; Height 6 cm10 ft. 0 in. ; 11:18 BP 111 / 74; Pulse 81; Resp 16; Pulse Ox 97% on R/A; db 14:00 BP 103 / 70; Pulse 77; Resp 18; Pulse Ox 100% on R/A; db 10:42 Body Mass Index 35.26 (117.93 kg, 182.88 cm) cm10 ED Course: 10:29 Patient arrived in ED. mr 10:33 Randall Jung MD is Attending Physician. rn 10:44 Triage completed. cm10 10:44 Arm band placed on Patient placed in an exam room, on a stretcher. cm10 10:54 Negar Sherwood, SUGEY is Primary Nurse. db 10:56 Patient has correct armband on for positive identification. Placed in gown. Bed in low kc6 position. Call light in reach. Side rails up X 1. Client placed on continuous cardiac and pulse oximetry monitoring. NIBP monitoring applied. board turner on. 10:56 CBC with Diff Sent. kc6 10:56 Basic Metabolic Panel Sent. kc6 10:56 SARS RAPID Sent. kc6 10:56 Flu Sent. kc6 10:56 Troponin High Sensitivity Sent. kc6 10:56 BNP Sent. kc6 10:56 Inserted saline lock: 20 gauge in right forearm, using aseptic technique. Blood kc6 collected. Patient maintains SpO2 saturation greater than 95% on room air. 11:25 XRAY Chest (1 view) In Process Unspecified. EDMS 14:15 Provided Education on: DISCHARGE. db 14:15 No provider procedures requiring assistance completed. IV discontinued, intact, db bleeding controlled, No redness/swelling at site. Administered Medications: 11:21 Drug: NS 0.9% IV 500 ml IV at bolus once Route: IV; Rate: bolus; Site: right db antecubital; 14:28 Follow up: Response: No adverse reaction; IV Status: Completed infusion; IV Intake: db 500ml 13:04 Drug: NS 0.9% IV 500 ml IV at bolus once Route: IV; Rate: bolus; Site: right wrist; db 14:15 Follow up: Response: No adverse reaction; IV Status: Completed infusion; IV Intake: db 500ml Medication: 14:15 VIS not applicable for this client. db Intake: 14:15 IV: 500ml; Total: 500ml. db 14:28 IV: 500ml; Total: 1000ml. db Outcome: 13:37 Discharge ordered by . rn 14:15 Discharged to home ambulatory, db 14:15 Condition: stable 14:15 Discharge instructions given to patient, Instructed on discharge instructions, follow up and referral plans. 14:31 Patient left the ED. db Signatures: Dispatcher [employer] EDDC Luisa Hagan, Reg Reg Randall Becerra MD MD rn Campbell, Kaitlyn RN RN kc6 Negar Sherwood, RN RN Miriam Dupree, RN RN cm10
[2023-07-26 14:59] VITALS: TEMP 98.1
[2023-07-26 15:02] VITALS: BP 103/70; O2SAT 100
--- NOTE | 2023-08-01 14:36 | EKG ---
Test Date: 2023-07-26 Test Time: 10:58:13 Shift Stacker: KERI MEASUREMENT RESULTS: Intervals: Rate: 80 OH: 170 QRSD: 110 QT: 416 QTc: 479 Munden: P: 18 OH: 170 QRS: -29 T: 13 INTERPRETIVE STATEMENTS: Normal sinus rhythm Incomplete right bundle branch block Borderline ECG Compared to ECG 06/08/2023 18:38:08 Incomplete right bundle-branch block now present Myocardial infarct finding no longer present Electronically Signed On 08-01-23 14:18:52 FRIT MIXER by Marcelo Parks
== END 2023-07-26 14:31 | disposition home or self-care (01) ==
LOC: ER 10:25
DX: R53.1 Weakness (principal); R42 Dizziness and giddiness; E11.9 Type 2 diabetes mellitus without complications; I10 Essential (primary) hypertension; Z11.52 Encounter for screening for COVID-19; Z85.528 Personal history of other malignant neoplasm of kidney
CPT/HCPCS: 96361; 93005; 85025; 80048; 36415; 81003; 84484; 83880; 87804 ×2; 71045; 96360; 99285; 87811; J7040 ×2

== ENCOUNTER 2024-07-24 20:32 | Emergency (ER) | payer OTHER ==
--- OUTSIDE RECORDS SUMMARY | 2024-07-24 20:36 | XMS REPORT | Continuity of Care Document ---
Author Name Unknown Address [address] [facility] [address] [place] [address] [facility] Address [address] [facility] [address] [place] [address] Care Team Providers Care Blood Tester Name Role Phone Armani Springer Jr. Primary Care Physician + [phone] Armani Springer Attending Clinician Unavailable KEITH VU Attending Clinician Unavailabl e Keith Vu MD Attending Clinician [phone] Davi Costa Attending Clinician Unavailable Keith Vu MD Attending Clinician [phone] Doctor Unassigned, [place] Attending Clinician U navailable PHUONG STEWART Attending Clinician Unavailab Phuong Clinton Attending Clinician [phone] EMERY DOBSON Attending Clinician Unavailable Emery Dias Attending Clinician [phone] PHUONG STEWART Admitting Clinician Unavailab EMERY Lau Admitting Clinician Unavailable Payers Payer Name Policy Type Policy Number Effective Date Expirati on Date Source Problems Condition Name Condition Details Condition Category Status Onset Date Resolution Date Last Treatment Date Treating Clinician Comments Source No known active problems No known active problems Disease 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 Problem [facility] [id number] Renal cell carcinoma of right kidney Problem [facility] [id number] S/p nephrectom y Problem [facility] [id number] Microscopi c hematuria Problem [facility] [id number] BPH loc w urin obs/LUTS Problem [facility] [id number] Right renal mass Problem [facility] Allergies, Adverse Reactions, Alerts Allergy Name Allergy Type Status Severity Reaction(s) Onset Date Inactive Date Treating Clinician Comments Source NO KNOWN ALLERGIE S Drug Class Active [facility] Social History Social Habit Start Date Stop Date Quantity Comments Source Sexual [facility] History of Tobacco Use Current Smoker [facility] Sex Assigned At [facility] History of Social function 2023-12-11 00:00:00 2023-12-11 00:00:00 [facility] Exposure to SARS-CoV-2 (event) 2022-06-26 00:00:00 2022-07-06 11:32:00 Not sure [facility] Smoking Status Start Date Stop Date Source Tobacco smoking consumption unknown [facility] Current Smoker 2023-05-05 00:00:00 [facility] Medications Ordered Medication Name Filled Medication Name Start Date Stop Date Current Medication? Ordering Clinician Indication Dosage Frequency Signature (SIG) Comments Components Source predniSONE 10 mg tablet 05-24 00:00: 00 Yes [id number] 10mg Take 1 tablet by mouth in the morning. Take 1.5 pills daily for two weeks, then take 1 pill daily [facility] metFORMIN 500 mg tablet 12-10 10:12: 57 Yes 1 tablet with a meal Orally Once a day [facility] alfuzosin 10 mg 24 hr tablet 12-10 10:12: 57 Yes TAKE 1 TABLET BY MOUTH ONCE DAILY IMMEDIATEL Y AFTER THE SAME MEAL [facility] predniSONE 10 mg tablet 12-10 00:00: 00 05-24 00:00 :00 No [id number] 10mg Take 1 tablet by mouth in the morning. Take 1.5 pills daily for two weeks, then take 1 pill daily [facility] lovastatin 40 mg tablet 11-28 00:00: 00 Yes TAKE 1 TABLET BY MOUTH ONCE DAILY WITH EVENING MEAL [facility] predniSONE 5 mg tablet -16 00:00: 00 12-10 00:00 :00 No TAKE 1 TABLET BY MOUTH TWICE DAILY - TAKE AT 8 AM AND 3 PM [facility] tadalafiL 10 mg tablet - 00:00: 00 Yes TAKE 1 TABLET BY MOUTH ONCE DAILY NEEDED [facility] NaCl 0.9% (NS) bolus infusion 1,000 mL 2022-09 22:45: 00 07-25 22:56 :00 No 1000mL at 999 mL/hr, 1,000 mL, IV Infusion, ONCE, 1 dose, On 07/25/23 at 1745, STAT [facility] azithromyci n 250 mg tablet 2022-09 00:00: 00 Yes [id number] 250mg Take 1 tablet by mouth in the morning. [facility] Uroxatral 10 MG Uroxatral 10 MG 8-15 00:00: 00 No 1{table t_at_be dtime} QD Uroxatral 10 MG ketorolac (TORADOL) injection 30 mg 2021-09 16:45: 00 07-06 16:36 :00 No 30mg 30 mg, Slow IV Push, ONCE, 1 dose, On 07/06/22 at 1145, Routine [facility] No known medications 2021-09 11:20: 05 No No known medication s [facility] Losartan Potassium 100 MG Losartan Potassium 100 MG No 1{table t} QD Losartan Potassium 100 MG hydroCHLORO thiazide hydroCHLORO thiazide No hydroCHLOR Othiazide Phentermine HCl 37.5 MG Phentermine HCl 37.5 MG No 1{capsu le} QD Phentermin e HCl 37.5 MG Vital Signs Vital Name Observation Time Observation Value Comments Andrés laird Systolic blood pressure 2024-04-15 14:52:00 137 mm[Hg] [facility] Diastolic blood pressure 2024-04-15 14:52:00 84 mm[Hg] [facility] Heart rate 2024-04-15 14:52:00 52 /min [facility] Body height 2024-04-15 14:52:[address] [facility] Body weight 2024-04-15 14:52:[address] [facility] BMI 2024-04-15 14:52:00 37.53 kg/m2 [facility] Oxygen saturation in Arterial blood by Pulse oximetry 2024-04-15 14:52:00 100 /min [facility] Systolic blood pressure 2023-12-11 15:14:00 128 mm[Hg] [facility] Diastolic blood pressure 2023-12-11 15:14:00 75 mm[Hg] [facility] Heart rate 2023-12-11 15:14:00 52 /min [facility] Body height 2023-12-11 15:14:[address] [facility] Body weight 2023-12-11 15:14:[address] [facility] BMI 2023-12-11 15:14:00 36.90 kg/m2 [facility] Oxygen saturation in Arterial blood by Pulse oximetry 2023-12-11 15:14:00 99 /min [facility] Systolic blood pressure 2023-07-26 00:45:00 96 mm[Hg] [facility] Diastolic blood pressure 2023-07-26 00:45:00 75 mm[Hg] [facility] Heart rate 2023-07-26 00:45:00 84 /min [facility] Respiratory rate 2023-07-26 00:45:00 25 /min [facility] Oxygen saturation in Arterial blood by Pulse oximetry 2023-07-26 00:45:00 100 /min [facility] Body temperature 2023-07-25 21:24:00 36.28 Carmita [facility] Body weight 2023-07-25 21:24:[address] [facility] height 2023-05-05 14:15:00 70 [in_i] Commo n [facility] weight 2023-05-05 14:15:00 303.6 [lb_av] Co mmon [facility] temperature 2023-05-05 14:15:00 98.2 [degF] Com mon [facility] bmi 2023-05-05 14:15:00 43.56 kg/m2 Comm on [facility] oximetry 2023-05-05 14:15:00 97 % Commo n [facility] respiratory rate 2023-05-05 14:15:00 18 /min Common [facility] blood pressure systolic 2023-05-05 14:15:00 124 mm[Hg] Common [facility] blood pressure diastolic 2023-05-05 14:15:00 77 mm[Hg] Common [facility] height 2022-12-10 11:45:00 70 [in_i] Commo n [facility] weight 2022-12-10 11:45:00 304 [lb_av] Comm on [facility] temperature 2022-12-10 11:45:00 97.7 [degF] Com mon [facility] bmi 2022-12-10 11:45:00 43.61 kg/m2 Comm on [facility] oximetry 2022-12-10 11:45:00 99 % Commo n [facility] respiratory rate 2022-12-10 11:45:00 18 /min Common [facility] blood pressure systolic 2022-12-10 11:45:00 147 mm[Hg[facility] blood pressure diastolic 2022-12-10 11:45:00 82 mm[Hg] Common [facility] height 2022-10-10 15:00:00 70 [in_i] Commo n [facility] weight 2022-10-10 15:00:00 330 [lb_av] Comm on [facility] bmi 2022-10-10 15:00:00 47.34 kg/m2 Comm on [facility] Systolic blood pressure 2022-07-06 16:17:00 156 mm[Hg] [facility] Diastolic blood pressure 2022-07-06 16:17:00 100 mm[Hg] [facility] Heart rate 2022-07-06 16:17:00 73 /min [facility] Body temperature 2022-07-06 16:17:00 37.06 Carmita [facility] Respiratory rate 2022-07-06 16:17:00 18 /min [facility] Body weight 2022-07-06 16:17:[address] [facility] Oxygen saturation in Arterial blood by Pulse oximetry 2022-07-06 16:17:00 99 /min [facility] Procedures Procedure Date / Time Performed Performing Clinicia n Source ASSIGNMENT OF BENEFITS 2023-12-11 14:57:04 Docto r Unassigned, [place] [facility] EXTERNAL PROVIDER RECORDS 2023-09-10 06:01:00 Doctor Unassigned, [place] [facility] XR CHEST 2 VW 2023-07-25 23:22:00 Phuong Stewart [facility] D-DIMER 2023-07-25 23:15:00 Phuong Stewart [facility] URINALYSIS 2023-07-25 22:54:00 Phuong Stewart [facility] CREATINE KINASE 2023-07-25 21:54:00 Phuong Stewart [facility] TROPONIN I 2023-07-25 21:54:00 Phuong Stewart [facility] COMP. METABOLIC PANEL ([id number]) 2023-07-25 21:54:00 Phuong Stewart [facility] CBC WITH DIFF 2023-07-25 21:54:00 Phuong Stewart [facility] N-TERMINAL PRO-BNP 2023-07-25 21:54:00 Phuong Stewart [facility] CT ABDOMEN PELVIS WO CONTRAST 2022-07-06 16:45:55 Emery Dobson [facility] LIPASE 2022-07-06 16:25[facility]. METABOLIC PANEL (49524) 2022-07-06 16:25:00 Emery Dobson [facility] CBC WITH DIFF 2022-07-06 16:25:00 Emery Dobson [facility] URINALYSIS 2022-07-06 16:25:00 Paul [facility] NOTICE OF PRIVACY PRACTICES 2022-07-06 16:08:39 Doctor Unassigned, [place] [facility] CONSENT/REFUSAL FOR DIAGNOSIS AND TREATMENT 2022-07-06 16:07:48 Doctor Unassigned, [place] [facility] Encounters Start Date/Time End Date/Time Encounter Type Admission Type Attending [facility] Care Facility Care Department Encounter ID Source 2022-10-10 11:56:[address] 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, Keith Carter [facility] 1.2.840.114 350.1.13.10 4.2.7.2.686 [id number] [facility] 2024-04-15 10:00:00 2024-04-15 10:13:21 Outpatient R KEITH VU [facility] [id number] [facility] 2024-04-15 10:00:00 2024-04-15 10:13:21 [facility] 1.2.840.114 350.1.13.10 4.2.7.2.686 [id number] [facility] 2024-02-22 00:00:00 2024-02-22 00:00:00 (TEL) STLMLC STLMLC [id number] [facility] 2023-12-11 10:00:00 2023-12-11 17:23:09 Outpatient R KEITH VU [facility] [id number] [facility] 2023-12-11 10:00:00 2023-12-11 17:23:09 Office Visit [facility] 1.2.840.114 350.1.13.10 4.2.7.2.686 [id number] [facility] 2023-12-11 00:00:00 2023-12-11 00:00:00 Orders Only Doctor Unassigned, [place] [facility] 1.2.840.114 350.1.13.10 4.2.7.2.686 [id number] [facility] 2023-12-11 00:00:00 2023-12-11 00:00:00 [facility] (Out[facility] 1.2.840.114 350.1.13.10 4.2.7.2.686 [id number] [facility] 2023-12-08 00:00:00 2023-12-08 00:00:00 (TEL) STLMLC STLMLC [id number] [facility] 2023-09-10 00:00:00 2023-09-10 00:00:00 Orders Only Doctor Unassigned, [place] [facility] 1..840.114 350.1.13.10 4.2.7.2.686 [id number] [facility] 2023-07-25 16:27:00 2023-07-25 19:48:00 Emergency [facility] E[facility] [id number] [facility] 2023-07-25 16:27:00 2023-07-25 19:48:00 Emergency [facility] 1..840.114 350.1.13.10 4.2.7.2.686 [id number] [facility] 2023-05-05 00:00:00 2023-05-05 00:00:00 OFFICE VISIT ESTAB PT LEVEL 4 STLMLC STLMLC [id number] [facility] 2022-12-10 00:00:00 2022-12-10 00:00:00 OFFICE VISIT ESTAB PT LEVEL 2 STLMLC STLMLC [id number] [facility] 2022-11-10 00:00:00 2022-11-10 00:00:00 (TEL) STLMLC STLMLC [id number] [facility] 2022-10-15 00:00:00 2022-10-15 00:00:00 (TEL) STLMLC STLMLC [id number] [facility] 2022-10-10 00:00:00 2022-10-10 00:00:00 OFFICE VISIT ESTAB PT LEVEL 5 STLMLC STLMLC [id number] [facility] 2022-07-06 11:22:00 2022-07-06 12:49:00 Emergency X EMERY DOBSON [facility] ERT [id number] [facility] 2022-07-06 11:22:00 2022-07-06 12:49:00 Emergency Emery Dobson [facility] 1.2.840.114 350.1.13.10 4.2.7.2.686 [id number] [facility] Results Test Description Test Time Test Comments Results Result Co mments Source [facility] [id number] 22:36:05* Test Item Value Reference Range Interpretation Comme nts TROPONIN I (test code = 3311364650) 0.011 ng/mL <=0.034 PAUL (test code = PAUL) Reference (Normal) [...] to patient's use of biotin. Lab Interpretation (test code = 15041-9) Normal [facility] [id number] 22:36:05* Test Item Value Reference Range Interpretation Comme nts NT-proBNP (test code = 84051-4) 412 pg/mL <=125 PAUL (test code = PAUL) Result Indeterminate-Consid er causes of NT-proBNP elevation other than Heart failure such as acute coronary syndrome, pulmonary embolism, pulmonary hypertension, sepsis, stroke, and renal dysfunction. Lab Interpretation (test code = 68096-1) Abnormal [facility] MET[facility]OLIC PANEL (74025)2023-07-25 22:26:27* Test Item Value Reference Range Interpretation Comme nts NA (test code = 9623499013) 132 mmol/L 135-145 L K (test code = 9550206109) 3.4 mmol/L 3.5-5.0 L CL (test code = 8030838084) 96 mmol/L 98-108 L CO2 TOTAL (test code = 8154300451) 21 mmol/L 23-31 L AGAP (test code = 5449619750) 15 2-16 BUN (test code = 0152236788) 14 mg/dL 7-23 GLUCOSE (test code = 4381025656) 81 mg/dL 70-110 CREATININE (test code = 7694109495) 1.56 mg/dL 0.60-1.25 H TOTAL BILI (test code = 2371640035) 0.9 mg/dL 0.1-1.1 CALCIUM (test code = 8003898218) 9.8 mg/dL 8.6-10.6 T PROTEIN (test code = 2773679661) 6.6 g/dL 6.3-8.2 ALBUMIN (test code = 7939735442) 4.2 g/dL 3.5-5.0 ALK PHOS (test code = 1341723280) 56 U/L 34-122 ALTv (test code = 1742-6) 16 U/L 5-50 AST(SGOT) (test code = 9439825042) 27 U/L 13-40 eGFR (test code = 29272-9) 52.5 mL/min/1.73m2 CKD-EPI eGFR (2020). Assuming creatinine has been stable day-to-day for at least three months, the eGFR indicates Category G3a (45 - 59 mL/min/1.73 m2) Lab Interpretation (test code = 35144-2) Abnormal [facility]AT[facility] [id number] 22:26:27* Test Item Value Reference Range Interpretation Comme nts CK (test code = 7417776524) 161 U/L 33-194 Lab Interpretation (test cod e = 74660-0) Normal [facility] WITH [id number] 22:21:06* Test Item Value Reference Range Interpretation Comme nts WBC (test code = 6690-2) 7.48 See_Comment [Automated messa ge] The system which generated this result transmitted reference range: 4.20 - 10.70 10*3/?L. The reference range was not used to interpret this result as normal/abnormal. RBC (test code = 789-8) 4.01 See_Comment L [Automated messa ge] The system which generated this result transmitted reference range: 4.26 - 5.52 10*6/?L. The reference range was not used to interpret this result as normal/abnormal. HGB (test code = 718-7) 11.9 g/dL 12.2-16.4 L HCT (test code = 4544-3) 33.9 % 38.4-49.3 L MCV (test code = 787-2) 84.5 fL 81.7-95.6 MCH (test code = 785-6) 29.7 pg 26.1-32.7 MCHC (test code = 786-4) 35.1 g/dL 31.2-35.0 H RDW-SD (test code = 89930-7) 43.1 fL 38.5-51.6 RDW-CV (test code = 788-0) 13.8 % 12.1-15.4 PLT (test code = 777-3) 278 See_Comment [Automated [employer]] The system which generated this result transmitted reference range: 150 - 328 10*3/?L. The reference range was not used to interpret this result as normal/abnormal. MPV (test code = 71910-1) 10.4 fL 9.8-13.0 NRBC/100 WBC (test code = 3293351900) 0.0 See_Comment [Automated Vouchr ssage] The system which generated this result transmitted reference range: 0.0 - 10.0 /100 WBCs. The reference range was not used to interpret this result as normal/abnormal. NRBC x10^3 (test code = 7440042699) See_Comment [Automated [employer]] The system which generated this result transmitted reference range: 10*3/?L. The reference range was not used to interpret this result as normal/abnormal. GRAN MAT (NEUT) % (test code = 770-8) 65.8 % IMM GRAN % (test code = 2724272130) 0.30 % LYMPH % (test code = 736-9) 20.6 % MONO % (test code = 5905-5) 10.0 % EOS % (test code = 713-8) 2.8 % BASO % (test code = 706-2) 0.5 % GRAN MAT x10^3(ANC) (test code = 2672231819) 4.92 10*3/uL 1.99-6.95 IMM GRAN x10^3 (test code = 2023033442) 0.00-0.06 LYMPH x10^3 (test code = 731-0) 1.54 10*3/uL 1.09-3.23 MONO x10^3 (test code = 742-7) 0.75 10*3/uL 0.36-1.02 EOS x10^3 (test code = 711-2) 0.21 10*3/uL 0.06-0.53 BASO x10^3 (test code = 704-7) 0.04 10*3/uL 0.01-0.09 Lab Interpretation (test code = 78149-9) Abnormal [facility] Metabolic [id number] 17:00:17* Test Item Value Reference Range Interpretation Comme nts NA (test code = 0044816107) 137 mmol/L 135-145 K (test code = 4904229487) 4.7 mmol/L 3.5-5 CL (test code = 7849548957) 98 mmol/L 98-108 CO2 TOTAL (test code = 8851337111) 28 mmol/L 23-31 AGAP (test code = 5585899143) 2-16 BUN (test code = 0230040792) 12 mg/dL 7-23 GLUCOSE (test code = 6095262808) 100 mg/dL 70-110 CREATININE (test code = 5171989163) 1.09 mg/dL 0.6-1.25 TOTAL BILI (test code = 7172858335) 0.6 mg/dL 0.1-1.1 CALCIUM (test code = 1452479702) 9.6 mg/dL 8.6-10.6 T PROTEIN (test code = 4845866774) 7.9 g/dL 6.3-8.2 ALBUMIN (test code = 9846383005) 4.9 g/dL 3.5-5 ALK PHOS (test code = 3698182536) 88 U/L 34-122 ALTv (test code = 1742-6) 31 U/L 5-50 AST(SGOT) (test code = 7452473649) 38 U/L 13-40 eGFR (test code = 6975758384) mL/min/1.73m2 PAUL (test code = PAUL) Association [...] or urine or abnormalities in imaging tests). [facility] Hospital[facility], [id number] 16:59:57* Test Item Value Reference Range Interpretation Comme [facility] LIPASE (test code = 9229482619) 48 U/L 0-220 Lab Interpretation (test cod e = 91528-1) Normal [facility] with [id number] 16:47:57* Test Item Value Reference Range Interpretation Comme nts WBC (test code = 6690-2) See_Comment [Automated [employer]] The system which generated this result transmitted reference range: 4.20 - 10.70 10*3/?L. The reference range was not used to interpret this result as normal/abnormal. RBC (test code = 789-8) See_Comment H [[employer]] The system which generated this result transmitted reference range: 4.26 - 5.52 10*6/?L. The reference range was not used to interpret this result as normal/abnormal. HGB (test code = 718-7) 16.4 g/dL 12.2-16.4 HCT (test code = 4544-3) 49.5 % 38.4-49.3 H MCV (test code = 787-2) 87.0 fL 81.7-95.6 MCH (test code = 785-6) 28.8 pg 26.1-32.7 MCHC (test code = 786-4) 33.1 g/dL 31.2-35 RDW-SD (test code = 21059-5) 45.4 fL 38.5-51.6 RDW-CV (test code = 788-0) 14.2 % 12.1-15.4 PLT (test code = 777-3) See_Comment [Automated messa ge] The system which generated this result transmitted reference range: 150 - 328 10*3/?L. The reference range was not used to interpret this result as normal/abnormal. MPV (test code = 08064-5) 10.3 fL 9.8-13 NRBC/100 WBC (test code = 7418645516) See_Comment [Automated Vouchr ssage] The system which generated this result transmitted reference range: 0.0 - 10.0 /100 WBCs. The reference range was not used to interpret this result as normal/abnormal. NRBC x10^3 (test code = 5727492413) See_Comment [Automated messa ge] The system which generated this result transmitted reference range: 10*3/?L. The reference range was not used to interpret this result as normal/abnormal. GRAN MAT (NEUT) % (test code = 770-8) 61.9 % IMM GRAN % (test code = 0571523045) 0.50 % LYMPH % (test code = 736-9) 22.5 % MONO % (test code = 5905-5) 11.8 % EOS % (test code = 713-8) 2.7 % BASO % (test code = 706-2) 0.6 % GRAN MAT x10^3(ANC) (test code = 1249164609) 4.08 10*3/uL 1.99-6.95 IMM GRAN x10^3 (test code = 3687033399) 0.03 10*3/uL 0-0.06 LYMPH x10^3 (test code = 731-0) 1.48 10*3/uL 1.09-3.23 MONO x10^3 (test code = 742-7) 0.78 10*3/uL 0.36-1.02 EOS x10^3 (test code = 711-2) 0.18 10*3/uL 0.06-0.53 BASO x10^3 (test code = 704-7) 0.04 10*3/uL 0.01-0.09 Lab Interpretation (test code = 37986-8) Abnormal [facility] Notes Date/Time Note Provider Source 2024-05-24 14:20:17 Refill has been sent to pharmacy on file. Future Appointments Date Type Provider Dept 09/16/24 Appointment Keith Vu MD [facility] Endocrinology Showing future appointments within next 150 days with a meds authorizing provider and meeting all other requirements Liliya Rivers RN [facility] 2024-05-24 10:47:35 Missael Brady is a 53 year old male Calling in requesting refill for predniSONE 10 mg tablet Please contact and advise. [phone] (home) [facility] [address] [place] [id number] [facility] 2024-04-15 10:30:00 Images from the original note were not included. Venipuncture collection performed by clean technique on the right anticubitus. Total of 1 attempts were made. Slight pressure and a bandage/dressing were applied to the site(s). The patient experienced no complications. The following specimens were processed according to instructions and sent to [facility] laboratories per lab order on 04/15/2024 : LT BLUE SST RED LAV 2 PPT DK GREEN (LiHep) DK GREEN (SodH) MORRIS DK BLUE (K2) DK BLUE (S) ACD Blood Culture NIPT/NTD [facility]"
[2024-07-24 21:52] LABS: PT Prothrombin Time 11.6 SECONDS (9.4-12.5); Protime INR 1.04
[2024-07-24 22:12] LABS: ALT/SGPT 26 U/L (16-61); Albumin 3.6 g/dL (3.4-5.0); Albumin/Globulin Ratio 1.1 (1.1-1.8); Alkaline Phosphatase 109 U/L (45-117); Anion Gap 7.8 mEq/L (5.0-15.0); BUN Blood Urea Nitrogen 17 mg/dL (7-18); Bicarbonate 25 mEq/L (21-32); Bilirubin Total 0.4 mg/dL (0.2-1.0); Globulin 3.4 g/dL (2.3-3.5); Glomerular Filtration Rate 55 ml/min (=/>90); Glucose Level 108 mg/dL (74-106); Sodium Level 136 mEq/L (136-145); Troponin High Sensitivity 11.3 pg/mL (<58.9)
[2024-07-24 22:14] LABS: AST/SGOT 28 U/L (15-37); Bilirubin Direct < 0.2 mg/dL (0-0.2); Bilirubin Indirect, Calculated 0.2 mg/dL (0.2-0.8); Magnesium 2.2 mg/dL (1.6-2.4); Potassium 3.8 mEq/L (3.5-5.1)
[2024-07-24 22:22] LABS: Absolute Eosinophils 0.3 K/uL (0-0.5); Absolute Lymphocytes (CBC) 1.4 K/uL (0.7-4.9); Absolute Monocytes 0.6 K/uL (0.1-1.3); Absolute Neutrophil 3.3 K/uL (1.8-8.0); Basophils % 0.7 % (0-1.3); Eosinophils % 5.9 % (0-4.4); Hematocrit 45.5 % (39.6-49.0); Hemoglobin 15.2 g/dL (13.6-17.9); Lymphocytes % 25.2 % (15.3-44.8); MCH 30.4 pg (27.0-35.0); MCHC 33.5 g/dL (32.0-36.0); MCV 90.9 fL (80-100); MPV 8.5 fL (7.6-11.3); Monocytes % 10.1 % (3.3-12.3); Neutrophils % 58.1 % (41.7-73.7); Nucleated Red Blood Cells % 0.2 % (0-0); Platelets 212 thou/uL (152-406); Red Cell Distribution Width 14.7 % (12.1-15.2)
--- NOTE | 2024-07-24 22:33 | RAD REPORT ---
EXAMINATION: ONE VIEW CHEST XR CLINICAL INDICATION: Male, 53 years old.dizziness TECHNIQUE: 1 View, AP supine, X-ray of the chest was performed. [id number]. COMPARISON: 07/26/2023 FINDINGS: Lungs and pleura: Clear lungs. No effusion. Heart and mediastinum: Normal heart size. Unremarkable mediastinal contours. Osseous structures: No acute abnormality. Tubes/lines: None Other: None. IMPRESSION: No acute intrathoracic abnormality.
[2024-07-24 22:41] LABS: Specific Gravity 1.029 (1.005-1.030); Sqamous Epithelial <5 /HPF (None Seen); Urine Bacteria None Seen /HPF (<20); Urine Bilirubin NEGATIVE (Negative); Urine Blood 1+ (Negative); Urine Clarity Clear (Clear); Urine Color Light-Yellow (Yellow); Urine Culture Reflex Order NOT NEEDED; Urine Glucose 4+ (Over) (Negative); Urine Ketones NEGATIVE (Negative); Urine Microscopic Reflex YN ORDER UMIC; Urine Mucus Slight /HPF (None Seen); Urine Nitrite NEGATIVE (Negative); Urine Protein NEGATIVE (Negative); Urine RBC <5 /HPF (None Seen); Urine Urobilinogen Normal (Normal); Urine WBC <5 /HPF (<5)
--- NOTE | 2024-07-24 23:02 | RAD REPORT ---
EXAMINATION: CT HEAD WITHOUT CONTRAST CLINICAL INDICATION: Male, 53 years old.DIZZINESS TECHNIQUE: Axial CT images from the skull base to the vertex without intravenous contrast. Coronal an d sagittal reformatted images were created from the data set. One or more of the following dose reduction techniques were used: Automated exposure control, adjustment of the mA and/or kV according to patient size, and/or iterative reconstruction. Unless otherwise specified, incidental findings do not require dedicated imaging follow-up. [id number]. COMPARISON: No prior exam. FINDINGS: INTRACRANIAL: No acute intracranial hemorrhage. No hydrocephalus. No mass effect or midline shift. No significant white matter disease. VASCULATURE: No visualized abnormalities in the arteries or dural venous sinuses. SCALP/SKULL: No significant soft tissue or osseous abnormalities. SINUSES: The visualized paranasal sinuses and mastoid air cells are predominantly clear. IMPRESSION: No acute intracranial abnormality.
--- NOTE | 2024-07-24 23:05 | RAD REPORT ---
EXAMINATION: CTA NECK CLINICAL INDICATION: Male, 53 years old. dizziness TECHNIQUE: Axial CT images were obtained from the aortic arch to the skull base after intravenous con trast utilizing angiographic protocol with 3D post-processing (maximum intensity projection images, volume rendered images and/or shaded surface rendered images). One or more of the following dose redu ction techniques were used: Automated exposure control, adjustment of the mA and/or kV according to patient size, and/or iterative reconstruction. Unless otherwise specified, incidental findings do not require dedicated imaging follow-up. [id number]. NASCET criteria used. Mild 0-49% stenosis Moderate 50-69% stenosis Severe 70-99% stenosis COMPARISON: No prior exam. FINDINGS: AORTA: The imaged aortic arch is normal. CCA: The common carotid arteries are patent and normal in caliber. ICA/ECA: Bilateral internal and external carotid arteries are patent. There is no significant interna l carotid artery stenosis. Where applicable, degree of stenosis is measured using NASCET-like criteria. VERTEBRAL: The cervical vertebral arteries are patent and codominant. SOFT TISSUE: No significant neck soft tissue abnormalities. The visualized lung apices are clear. 3D images confirm these findings. IMPRESSION: No hemodynamically significant stenosis or dissection.
--- NOTE | 2024-07-24 23:07 | RAD REPORT ---
EXAMINATION: CTA HEAD CLINICAL INDICATION: Male, 53 years old. DIZZINESS TECHNIQUE: Axial CT images were obtained through the head after intravenous contrast utilizing angiog raphic protocol with 3D post-processing (maximum intensity projection images, volume rendered images and/or shaded surface rendered images). One or more of the following dose reduction technique s were used: Automated exposure control, adjustment of the mA and/or kV according to patient size, and/or iterative reconstruction. Unless otherwise specified, incidental findings do not require dedic ated imaging follow-up. COMPARISON: No prior exam. FINDINGS: ICA: The petrous, cavernous, and supraclinoid segments of the bilateral internal carotid arteries are normal. The ophthalmic artery origins are visualized and normal. The posterior communicating arteries are patent. Calcified plaque at the bilateral cavernous carotids. YOLANDA: Anterior cerebral arteries are normal bilaterally. The anterior communicating artery is patent. MCA: Middle cerebral arteries are normal bilaterally. LINING PRINTER: Posterior cerebral arteries are normal bilaterally. Vertebrobasilar: The vertebral arteries are patent. The basilar artery is normal in appearance. 3D images confirm these findings. IMPRESSION: No occlusion, aneurysm, or hemodynamically significant stenosis identified.
[2024-07-24] MEDS ORDERED: MECLIZINE HCL 12.5 MG TAB ONE (23:24)
[2024-07-24] MEDS ORDERED: NA CHLORIDE 0.9% 1,000 ML ONE (23:24)
--- NOTE | 2024-07-25 00:25 | EDPHYS ---
Physician Documentation [facility] Name: Missael Quinteros Age: 53 yrs Sex: Male : 1970 Arrival Date: 07/24/2024 Time: 20:32 Bed 18 Private MD: ED Physician Roddy Mccord HPI: 07/24 20:45 This 53 yrs old Male presents to ER via Ambulatory with complaints of High cp Blood Pressure, Dizziness, Doesn't Feel Right, lethargic. 20:45 The patient has elevated blood pressure and discovered this at home, with a home device.cp 20:45 Onset: The symptoms/episode began/occurred today. Associated signs and symptoms: cp Pertinent positives: dizziness, lightheadedness, reports "doesn't feel right". Severity of symptoms: At its worst the blood pressure was 170 mm Hg. 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 - Infectious Disease History:: Denies. - Social history:: Smoking status: Patient denies any tobacco usage or history of. ROS: 20:50 Constitutional: Negative for body aches, chills, fever, poor PO intake, cp 20:50 Eyes: Negative for injury, pain, redness, and discharge, cp 20:50 ENT: Negative for drainage from ear(s), ear pain, sore throat, difficulty swallowing, difficulty handling secretions, 20:50 Cardiovascular: Negative for chest pain, edema, palpitations, 20:50 Respiratory: Negative for cough, shortness of breath, wheezing, 20:50 Abdomen/GI: Negative for abdominal pain, vomiting, diarrhea, constipation, 20:50 Neuro: Positive for dizziness, Negative for headache, syncope, near syncope, weakness, 20:50 All other systems are negative, Exam: 20:50 Head/Face: Normocephalic, atraumatic. cp 20:50 Constitutional: The patient appears in no acute distress, alert, awake, non-diaphoretic, non-toxic, well developed, well nourished, obese, 20:50 Eyes: Periorbital structures: appear normal, Pupils: equal, round, and reactive to light and accomodation, Extraocular movements: intact throughout, Conjunctiva: normal, no exudate, no injection, Sclera: no appreciated abnormality, Lids and lashes: appear normal, bilaterally, 20:50 ENT: External ear(s): are unremarkable, Nose: is normal, Mouth: Lips: moist, Oral mucosa: pink and intact, moist, Posterior pharynx: Airway: no evidence of obstruction, patent, 20:50 Neck: ROM/movement: is normal, is supple, without pain, no range of motions limitations, no meningismus, no nuchal rigidity, 20:50 Chest/axilla: Inspection: normal, 20:50 Cardiovascular: Rate: normal, Rhythm: regular, Edema: is not appreciated, JVD: is not appreciated, 20:50 Respiratory: the patient does not display signs of respiratory distress, Respirations: normal, no use of accessory muscles, no retractions, labored breathing, is not present, Breath sounds: are clear throughout, no decreased breath sounds, no stridor, no wheezing, 20:50 Abdomen/GI: Inspection: abdomen appears normal, 20:50 Neuro: Orientation: to person, place \\T\\ time. Mentation: is normal, Cerebellar function: is grossly normal, Motor: moves all fours, strength is normal, Sensation: is normal, 21:37 ECG was reviewed by the Attending Physician. Vital Signs: 20:41 Pulse 65; Resp 19 S; Temp 98.4(O); Pulse Ox 98% on R/A; Weight 131.54 kg; Height 6 ft. ha1 0 in. ; 21:06 BP 120 / 80; Pulse 62; Resp 18; Pulse Ox 97% ; br2 22:00 BP 127 / 90; Pulse 63; Resp 18 S; Pulse Ox 98% on R/A; br2 23:58 BP 123 / 76 Supine; br2 23:58 BP 169 / 101 Standing; br2 23:58 BP 130 / 81 Sitting; br2 20:41 Body Mass Index 39.33 (131.54 kg, 182.88 cm) ha1 MDM: 20:43 Medical Screening Exam initiated cp 07/25 00:24 Data reviewed: vital signs, nurses notes, lab test result(s), EKG, radiologic studies, cp CT scan, plain films. 07/24 21:32 Order name: Basic Metabolic Panel; Complete Time: 22:36 cp 07/24 23:15 Interpretation: Normal except: GLUC 108; CRE 1.50; GFR 55. cp 07/24 21:32 Order name: CBC with Diff; Complete Time: 22:36 cp 07/24 21:32 Order name: LFT's; Complete Time: 22:36 cp 07/24 21:32 Order name: Magnesium; Complete Time: 22:36 cp 07/24 21:32 Order name: PT-INR; Complete Time: 22:36 cp 07/24 21:32 Order name: Troponin HS; Complete Time: 22:36 cp 07/24 21:32 Order name: Urinalysis w/ reflexes; Complete Time: 23:13 cp 07/24 23:13 Interpretation: Normal except: UGLUC 4+ (Over); UBLD 1+. cp 07/24 21:32 Order name: XRAY Chest (1 view); Complete Time: 22:36 cp 07/24 21:32 Order name: CT Neck Angio; Complete Time: 23:13 cp 07/24 23:14 Interpretation: Report reviewed. cp 07/24 21:32 Order name: CT Head Brain wo Cont; Complete Time: 23:13 cp 07/24 23:14 Interpretation: Report reviewed. 07/24 21:43 Order name: Head angio; Complete Time: 23:13 EDMS 07/24 23:14 Interpretation: Report reviewed. 07/24 20:43 Order name: EKG - Nurse/Tech; Complete Time: 22:07 cp 07/24 21:32 Order name: Cardiac monitoring; Complete Time: 22:07 cp 07/24 21:32 Order name: IV Saline Lock; Complete Time: 22:07 cp 07/24 21:32 Order name: Labs collected and sent; Complete Time: 22:25 cp 07/24 21:32 Order name: O2 Per Protocol; Complete Time: 22:25 cp 07/24 21:32 Order name: O2 Sat Monitoring; Complete Time: 22:25 cp 07/24 23:13 Order name: Orthostatics; Complete Time: 23:58 cp EC/03 21:37 Rate is 63 beats/min. Rhythm is regular. [place] interval is normal. QRS interval is cp prolonged at 104 msec. QT interval is normal. T waves are Inverted in leads III, aVF, aVR. Interpreted by me. Reviewed by me. Administered Medications: 23:31 Drug: Meclizine PO 25 mg PO once Route: PO; br2 07/25 00:00 Follow up: Response: No adverse reaction br2 07/24 23:31 Drug: NS 0.9% IV 1000 ml IV at 1000 ml once; to be given as a bolus over 60 minutes br2 Route: IV; Rate: 1000 ml; Site: left antecubital; 07/25 00:20 Follow up: Response: No adverse reaction; IV Status: Completed infusion; IV Intake: br2 1000ml Disposition Summary: 07/25/24 00:24 Discharge Ordered Notes: Location: Home cp Problem: new cp Symptoms: have improved cp Condition: Stable cp Diagnosis - Dizziness and giddiness cp - Weakness cp Followup: cp - With: Private Physician - When: 2 - 3 days - Reason: Recheck today's complaints Discharge Instructions: - Discharge Summary Sheet cp - Dizziness cp - Weakness cp Forms: - Medication Reconciliation Form cp - Antibiotic Education cp - Prescription Opioid Use cp - Patient Portal Instructions cp - Leadership Thank You Letter cp Prescriptions: - Meclizine 25 mg Oral Tablet - take 1 tablet ORAL route every 8 hours As needed; 30 tablet; Refills: 0, cp Product Selection Permitted - Zofran 4 mg Oral Tablet - take 1 tablet ORAL route every 12 hours As needed; 20 tablet; Refills: 0, cp Product Selection Permitted Addendum: 07/27/2024 00:59 Co-signature as Attending Physician, Roddy Mccord MD I agree with the assessment s p4 and plan of care. I reviewed the patient's care provided by the Advanced Practice Provider and agree with the diagnosis and treatment plan. Signatures: Dispatcher [employer] EDMS Galindo Mcpherson PA PA cp Karyn Myrick, RN RN ha1 Roddy Mccord MD MD sp4 Angela Fontenot RN RN br2 Corrections: (The following items were deleted from the chart) 07/24 21:33 21:33 BASIC METABOLIC PANEL+C.LAB.BRZ ordered. EDMS EDMS 21:33 21:33 CBC+H.LAB.BRZ ordered. EDMS EDMS 21:33 21:33 HEPATIC FUNCTION+C.LAB.BRZ ordered. EDMS EDMS 21:33 21:33 MAGNESIUM+C.LAB.BRZ ordered. EDMS EDMS : 21:33 PROTIME (+INR)+COAG.LAB.BRZ ordered. EDMS EDMS : 21:33 Troponin High Sensitivity+C.LAB.BRZ ordered. EDMS EDMS : 21:33 Urinalysis+U.LAB.BRZ ordered. EDMS EDMS : 21:33 Chest Single View+RAD.RAD.BRZ ordered. EDMS EDMS
--- NOTE | 2024-07-25 00:25 | ER ---
Nurse's Notes [facility] Name: Missael Quinteros Age: 53 yrs Sex: Male : 1970 Arrival Date: 07/24/2024 Time: 20:32 Bed 18 Private MD: Diagnosis: Dizziness and giddiness;Weakness Presentation: 07/24 20:41 Chief complaint: Patient states: ELEVATED BLOOD PRESSURE, DIZZINESS , I FEEL LIKE THE 1 ROOM IS SPENDING AROUND. 20:41 Coronavirus screen: Vaccine status: Patient reports receiving the 2nd dose of the covid ha1 vaccine. Ebola Screen: No symptoms or risks identified at this time. Initial Sepsis Screen: Does the patient meet any 2 criteria? No. Patient's initial sepsis screen is negative. Does the patient have a suspected source of infection? No. Patient's initial sepsis screen is negative. Risk Assessment: Do you want to hurt yourself or someone else? Patient reports no desire to harm self or others. Onset of symptoms was July 24, 2024. 20:41 Method Of Arrival: Ambulatory 1 20:41 Acuity: BOBBY 3 ha1 Triage Assessment: 21:00 General: Appears comfortable, Behavior is calm, cooperative. Pain: Denies pain. Neuro: ha1 Level of Consciousness is awake, alert, obeys commands, Oriented to person, place, time, situation. Neuro: Reports dizziness. Cardiovascular: Capillary refill < 3 seconds Patient's skin is warm and dry. Respiratory: Airway is patent Respiratory effort is even, unlabored, Respiratory pattern is regular, symmetrical. GI: Abdomen is round non-distended. Derm: Skin is pink, warm \T\ dry. 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 - Infectious Disease History:: Denies. - Social history:: Smoking status: Patient denies any tobacco usage or history of. Screenin:45 [facility] ED Fall Risk Assessment (Adult) History of falling in the last 3 months, br2 including since admission No falls in past 3 months (0 pts) Confusion or Disorientation No (0 pts) Intoxicated or Sedated No (0 pts) Impaired Gait No (0 pts) Mobility Assist Device Used No (0 pt) Altered Elimination No (0 pt) Score/Fall Risk Level 0 - 2 = Low Risk Oriented to surroundings. Abuse screen: Denies threats or abuse. Denies injuries from another. Nutritional screening: No deficits noted. Tuberculosis screening: No symptoms or risk factors identified. Assessment: 20:45 Reassessment: Patient and/or family updated on plan of care and expected duration. Pain br2 level reassessed. Patient is alert, oriented x 3, equal unlabored respirations, skin warm/dry/pink. General: Appears in no apparent distress. comfortable, Behavior is calm, cooperative, quiet, restless. Pain: Denies pain. Neuro: Stewart Agitation-Sedation Scale (RASS): 0 - Alert and Calm Level of Consciousness is awake, alert, obeys commands, Oriented to person, place, time, Facial symmetry appears normal, Reports dizziness. Cardiovascular: Reports DIZZINESS Denies chest pain, shortness of breath. Respiratory: Airway is patent Respiratory effort is even, unlabored, Respiratory pattern is regular, symmetrical. GI: No signs and/or symptoms were reported involving the gastrointestinal system. : No signs and/or symptoms were reported regarding the genitourinary system. EENT: No signs and/or symptoms were reported regarding the EENT system. Derm: No signs and/or symptoms reported regarding the dermatologic system. Musculoskeletal: Circulation, motion, and sensation intact. Capillary refill < 3 seconds, Range of motion: intact in all extremities. 22:31 Reassessment: Patient appears in no apparent distress at this time. No changes from br2 previously documented assessment. Patient is alert, oriented x 3, equal unlabored respirations, skin warm/dry/pink. PENDING CT RESULTS. 23:00 Reassessment: No changes from previously documented assessment. Patient and/or family br2 updated on plan of care and expected duration. Pain level reassessed. Patient is alert, oriented x 3, equal unlabored respirations, skin warm/dry/pink. Patient states feeling better. Vital Signs: 20:41 Pulse 65; Resp 19 S; Temp 98.4(O); Pulse Ox 98% on R/A; Weight 131.54 kg; Height 6 ft. ha1 0 in. ; 21:06 BP 120 / 80; Pulse 62; Resp 18; Pulse Ox 97% ; br2 22:00 BP 127 / 90; Pulse 63; Resp 18 S; Pulse Ox 98% on R/A; br2 23:58 BP 123 / 76 Supine; br2 23:58 BP 169 / 101 Standing; br2 23:58 BP 130 / 81 Sitting; br2 20:41 Body Mass Index 39.33 (131.54 kg, 182.88 cm) ha1 ED Course: 20:34 Patient arrived in ED. im 20:35 Galindo Mcpherson PA is PHCP. cp 20:35 Roddy Mccord MD is Attending Physician. cp 20:45 Missed attempt(s): 20 gauge in right forearm. br2 20:45 Patient has correct armband on for positive identification. Bed in low position. Call br2 light in reach. Side rails up X 1. Provided Education on: PLAN OF CARE. 20:50 Missed attempt(s): 20 gauge in right wrist. br2 21:00 Triage completed. ha1 21:15 Inserted saline lock: 20 gauge in right hand, using aseptic technique. Blood collected. br2 Flushed with 10 mL NS. 21:18 Angela Fontenot, RN is Primary Nurse. br2 21:43 Missed attempt(s): 20 gauge in right forearm. oh1 21:43 EKG done, by gas plant technician. reviewed by Roddy Mccord MD. oh1 22:01 Inserted saline lock: 20 gauge in left antecubital area, using aseptic technique. ha1 Flushed with 10 mL NS Accessed peripheral vein via ultrasound, utilizing dynamic ultrasound technique. 22:28 XRAY Chest (1 view) In Process Unspecified. EDMS 22:56 CT Neck Angio In Process Unspecified. EDMS 22:56 CT Head Brain wo Cont In Process Unspecified. EDMS 22:56 Head angio In Process Unspecified. EDMS Administered Medications: 23:31 Drug: Meclizine PO 25 mg PO once Route: PO; br2 07/25 00:00 Follow up: Response: No adverse reaction br2 07/24 23:31 Drug: NS 0.9% IV 1000 ml IV at 1000 ml once; to be given as a bolus over 60 minutes br2 Route: IV; Rate: 1000 ml; Site: left antecubital; 07/25 00:20 Follow up: Response: No adverse reaction; IV Status: Completed infusion; IV Intake: br2 1000ml Intake: 00:20 IV: 1000ml; Total: 1000ml. br2 Outcome: 00:24 Discharge ordered by MD. bradley 00:41 Patient left the ED. br2 Signatures: Dispatcher [employer] EDMS Galindo Mcpherson PA PA cp Ayala, Heidy, RN RN ha1 Krystyna Brown Rommel, RN RN rg5 Angela Fontenot RN RN br2 Skye Sweet oh1 Corrections: (The following items were deleted from the chart) 07/24 22:31 21:06 BP 120 / 80; rg5 br2 22:55 21:06 BP 127 / 90; Pulse 63bpm; Resp 18bpm; Spontaneous; Pulse Ox 98% RA; br2 br2
[2024-07-25 01:10] VITALS: TEMP 98.4
[2024-07-25 01:12] VITALS: O2SAT 98
[2024-07-25 01:13] VITALS: BP 130/81
--- NOTE | 2024-07-26 12:22 | EKG ---
Test Date: 2024-07-24 Test Time: 21:33:56 Launch Manager: HIRAM MEASUREMENT RESULTS: Intervals: Rate: 63 HI: 158 QRSD: 104 QT: 416 QTc: 425 [place]: P: 32 HI: 158 QRS: -7 T: -7 INTERPRETIVE STATEMENTS: Normal sinus rhythm Incomplete right bundle branch block T wave abnormality, consider inferior ischemia Abnormal ECG Compared to ECG 07/26/2023 10:58:13 T-wave abnormality now present Possible ischemia now present Electronically Signed On 07-26-24 12:17:50 OPERATING ROOM ASSISTANT by Ray Lanza
== END 2024-07-25 00:41 | disposition home or self-care (01) ==
LOC: ER 20:32
DX: R42 Dizziness and giddiness (principal); R53.1 Weakness; E11.9 Type 2 diabetes mellitus without complications; I10 Essential (primary) hypertension
CPT/HCPCS: 93005; 85025; 81001; 80048; 36415; 83735; 85610; 80076; 84484; 70450; 70496; 70498; 71045; Q9967; J8597; J7030; 96360; 99285

== ENCOUNTER 2024-12-03 09:45 | Emergency (ER) | payer OTHER ==
--- OUTSIDE RECORDS SUMMARY | 2024-12-03 09:49 | XMS REPORT | Continuity of Care Document ---
Author Name Unknown Address [address] [place] [address] [facility] Address [address] [place] [address] Care Team Providers Care Form Block Maker Name Role Phone Armani Springer Jr. Primary Care Physician [phone] Armani Springer Attending Clinician Unavailable KEITH VU Attending Clinician Unavailabl e Keith Vu MD Attending Clinician [phone] Keith Vu Attending Clinician [phone] Lab, Ang - Db Attending Clinician Unavailable Keith Vu MD Attending Clinician [phone] Doctor Unassigned, [place] Attending Clinician U navailable PHUONG STEWART Attending Clinician Unavailab le Phuong Salinas Attending Clinician [phone] EMERY DOBSON Attending Clinician Unavailable Emery Dias Attending Clinician [phone] PHUONG STEWART Admitting Clinician Unavailab le EMERY DOBSON Admitting Clinician Unavailable Payers Payer Name Policy Type Policy Number Effective Date Expirati on Date Source HIM [facility] [id number] 2022 00:00:00 Problems Condition Name Condition Details Condition Category Status Onset Date Resolution Date Last Treatment Date Treating Clinician Comments Source No known active problems No known active problems Disease [facility] Malignant tumor of kidney Malignant neoplasm of right kidney Problem [facility] Disorder of kidney and/or ureter Renal mass, right Problem [facility] 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 Problem [facility] [id number] Renal cell carcinoma of right kidney Problem [facility] [id number] S/p nephrectom y Problem [facility] [id number] Microscopi c hematuria Problem [facility] [id number] BPH loc w urin obs/LUTS Problem [facility] [id number] Right renal mass Problem [facility] Allergies, Adverse Reactions, Alerts Allergy Name Allergy Type Status Severity Reaction(s) Onset Date Inactive Date Treating Clinician Comments Source NO KNOWN ALLERGIE S Drug Class Active [facility] Social History Social Habit Start Date Stop Date Quantity Comments Source Sexual orientation U [facility] History of Tobacco Use Current Smoker [facility] Sex Assigned At [facility] History of Social function 2023-12-11 00:00:00 2023-12-11 00:00:00 [facility] Exposure to SARS-CoV-2 (event) 2022-06-26 00:00:00 2022-07-06 11:32:00 Not sure [facility] Smoking Status Start Date Stop Date Source Tobacco smoking consumption unknown [facility] Current Smoker 2023-05-05 00:00:00 [facility] Medications Ordered Medication Name Filled Medication Name Start Date Stop Date Current Medication? Ordering Clinician Indication Dosage Frequency Signature (SIG) Comments Components Source JARDIANCE 10 mg tablet 2023-09 00:00: 00 Yes 10mg Take 1 tablet by mouth in the morning. [facility] lisinopriL 2.5 mg tablet 2023-09 00:00: 00 Yes 2.5mg Take 1 tablet by mouth in the morning. [facility] predniSONE 10 mg tablet - 00:00: 00 Yes [id number] 10mg Take 1 tablet by mouth in the morning. Take 1.5 pills daily for two weeks, then take 1 pill daily [facility] metFORMIN 500 mg tablet 12-10 10:12: 57 Yes 1 tablet with a meal Orally Once a day [facility] predniSONE 10 mg tablet 12-10 00:00: 00 05-24 00:00 :00 No [id number] 10mg Take 1 tablet by mouth in the morning. Take 1.5 pills daily for two weeks, then take 1 pill daily [facility] lovastatin 40 mg tablet 11-28 00:00: 00 Yes TAKE 1 TABLET BY MOUTH ONCE DAILY WITH EVENING MEAL [facility] predniSONE 5 mg tablet -16 00:00: 00 12-10 00:00 :00 No TAKE 1 TABLET BY MOUTH TWICE DAILY - TAKE AT 8 AM AND 3 PM [facility] tadalafiL 10 mg tablet - 00:00: 00 Yes TAKE 1 TABLET BY MOUTH ONCE DAILY NEEDED [facility] NaCl 0.9% (NS) bolus infusion 1,000 mL 2022-09 22:45: 00 07-25 22:56 :00 No 1000mL at 999 mL/hr, 1,000 mL, IV Infusion, ONCE, 1 dose, On 07/25/23 at 1745, STAT [facility] azithromyci n 250 mg tablet 2022-09 00:00: 00 Yes [id number] 250mg Take 1 tablet by mouth in the morning. [facility] ketorolac (TORADOL) injection 30 mg 2021-09 16:45: 00 07-06 16:36 :00 No 30mg 30 mg, Slow IV Push, ONCE, 1 dose, On 07/06/22 at 1145, Routine [facility] No known medications 2021-09 11:20: 05 No No known medication s [facility] Losartan Potassium 100 MG Losartan Potassium 100 MG No 1{table t} QD Losartan Potassium 100 MG hydroCHLORO thiazide hydroCHLORO thiazide No hydroCHLOR Othiazide Phentermine HCl 37.5 MG Phentermine HCl 37.5 MG No 1{capsu le} QD Phentermin e HCl 37.5 MG Alfuzosin HCl ER 10 MG Alfuzosin HCl ER 10 MG No Alfuzosin HCl ER 10 MG Vital Signs Vital Name Observation Time Observation Value Comments S ource Systolic blood pressure 2024-04-15 14:52:00 137 mm[Hg] [facility] Diastolic blood pressure 2024-04-15 14:52:00 84 mm[Hg] [facility] Heart rate 2024-04-15 14:52:00 52 /min [facility] Body height 2024-04-15 14:52:[address] [facility] Body weight 2024-04-15 14:52:[address] [facility] BMI 2024-04-15 14:52:00 37.53 kg/m2 [facility] Oxygen saturation in Arterial blood by Pulse oximetry 2024-04-15 14:52:00 100 /min [facility] Systolic blood pressure 2023-12-11 15:14:00 128 mm[Hg] [facility] Diastolic blood pressure 2023-12-11 15:14:00 75 mm[Hg] [facility] Heart rate 2023-12-11 15:14:00 52 /min Unive [facility] Body height 2023-12-11 15:14:[address] [facility] Body weight 2023-12-11 15:14:[address] [facility] BMI 2023-12-11 15:14:00 36.90 kg/m2 [facility] Oxygen saturation in Arterial blood by Pulse oximetry 2023-12-11 15:14:00 99 /min [facility] Systolic blood pressure 2023-07-26 00:45:00 96 mm[Hg] [facility] Diastolic blood pressure 2023-07-26 00:45:00 75 mm[Hg] [facility] Heart rate 2023-07-26 00:45:00 84 /min [facility] Respiratory rate 2023-07-26 00:45:00 25 /min [facility] Oxygen saturation in Arterial blood by Pulse oximetry 2023-07-26 00:45:00 100 /min [facility] Body temperature 2023-07-25 21:24:00 36.28 Carmita [facility] Body weight 2023-07-25 21:24:[address] [facility] height 2023-05-05 14:15:00 70 [in_i] Commo n [facility] weight 2023-05-05 14:15:00 303.6 [lb_av] Co mmon [facility] temperature 2023-05-05 14:15:00 98.2 [degF] Com [facility] bmi 2023-05-05 14:15:00 43.56 kg/m2 Comm on [facility] oximetry 2023-05-05 14:15:00 97 % Commo n [facility] respiratory rate 2023-05-05 14:15:00 18 /min [facility] blood pressure systolic 2023-05-05 14:15:00 124 mm[Hg] [facility] blood pressure diastolic 2023-05-05 14:15:00 77 mm[Hg] [facility] height 2022-12-10 11:45:00 70 [in_i] Commo n [facility] weight 2022-12-10 11:45:00 304 [lb_av] Comm on [facility] temperature 2022-12-10 11:45:00 97.7 [degF] Com [facility] bmi 2022-12-10 11:45:00 43.61 kg/m2 Comm on [facility] oximetry 2022-12-10 11:45:00 99 % Commo n [facility] respiratory rate 2022-12-10 11:45:00 18 /min [facility] blood pressure systolic 2022-12-10 11:45:00 147 mm[Hg] [facility] blood pressure diastolic 2022-12-10 11:45:00 82 mm[Hg] [facility] height 2022-10-10 15:00:00 70 [in_i] Commo n [facility] weight 2022-10-10 15:00:00 330 [lb_av] Comm on [facility] bmi 2022-10-10 15:00:00 47.34 kg/m2 Comm on [facility] Systolic blood pressure 2022-07-06 16:17:00 156 mm[Hg] [facility] Diastolic blood pressure 2022-07-06 16:17:00 100 mm[Hg] [facility] Heart rate 2022-07-06 16:17:00 73 /min [facility] Body temperature 2022-07-06 16:17:00 37.06 Carmita [facility] Respiratory rate 2022-07-06 16:17:00 18 /min [facility] Body weight 2022-07-06 16:17:[address] [facility] Oxygen saturation in Arterial blood by Pulse oximetry 2022-07-06 16:17:00 99 /min [facility] Procedures Procedure Date / Time Performed Performing Clinicia n Source ASSIGNMENT OF BENEFITS 2023-12-11 14:57:04 Docto r Unassigned, [place] [facility] EXTERNAL PROVIDER RECORDS 2023-09-10 06:01:00 Doctor Unassigned, [place] [facility] XR CHEST 2 VW 2023-07-25 23:22:00 [facility] 2023-07-25 23:15:00 [facility] 2023-07-25 22:54:00 [facility] CREATINE KINASE 2023-07-25 21:54:00 Puhong Stewart [facility] TROPONIN I 2023-07-25 21:54:00 Phuong Stewart Un [facility] COMP. METABOLIC PANEL (85591) 2023-07-25 21:54:00 Phuong Stewart [facility] CBC WITH DIFF 2023-07-25 21:54:00 [facility] N-[facility]MINAL PRO-BNP 2023-07-25 21:54:00 Phuong Stewart [facility] CT ABDOMEN PELVIS WO CONTRAST 2022-07-06 16:45:55 Paul [facility] LIPASE 2022-07-06 16:25[facility] COMP. METABOLIC PANEL (35006) 2022-07-06 16:25:00 Emery Dobson [facility] CBC WITH DIFF 2022-07-06 16:25:00 Emery Dobson [facility] URINALYSIS 2022-07-06 16:25:00 Paul [facility] NOTICE OF PRIVACY PRACTICES 2022-07-06 16:08:39 Doctor Unassigned, [place] [facility] CONSENT/REFUSAL FOR DIAGNOSIS AND TREATMENT 2022-07-06 16:07:48 Doctor Unassigned, [place] [facility] Encounters Start Date/Time End Date/Time Encounter Type Admission Type Attending [facility] Care Facility Care Department Encounter ID Source 2024-09-08 09:52:00 Outpatient Armani Springer [facility] [id number] [facility] 2022-10-10 11:56:02 Outpatient Armani Springer [facility] [id number] [facility] 2024-11-29 00:00:00 2024-11-29 00:00:00 (TEL) [facility] [id number] [facility] 2024-11-28 00:00:00 2024-11-28 00:00:00 (TEL) [facility] [id number] [facility] 2024-11-25 15:00:00 2024-11-25 15:00:00 Outpatient R KEITH VU [facility] [id number] [facility] 2024-11-01 00:00:00 2024-11-14 15:44:09 Telephone [facility] 1.84.114 350.1.13.10 4.2.7.2.686 [id number] [facility] 2024-10-08 00:00:00 2024-10-14 10:05:25 Telephone Keith [facility] 1.84.114 350.1.13.10 4.2.7.2.686 [id number] [facility] 2024-10-07 10:30:00 2024-10-07 10:30:00 Out[address] KEITH VU [facility] [id number] [facility] 2024-08-10 00:00:00 2024-08-11 15:16:50 [facility] 1.84.114 350.1.13.10 4.2.7.2.686 [id number] [facility] 2024-07-25 00:00:00 2024-07-25 11:40:32 [facility] 1.84.114 350.1.13.10 4.2.7.2.686 [id number] [facility] 2024-05-24 00:00:00 2024-05-24 14:20:53 [facility] 1.84.114 350.1.13.10 4.2.7.2.686 [id number] [facility] 2024-04-15 10:30:00 2024-04-15 10:45:00 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 [id number] [facility] 2024-04-15 10:00:00 2024-04-15 10:13:21 Office Visit Keith Vu [facility] 1.840.114 350.1.13.10 4.2.7.2.686 [id number] [facility] 2024-02-22 00:00:00 2024-02-22 00:00:00 (TEL) STLMLC [facility] [id number] [facility] 2023-12-11 10:00:00 2023-12-11 17:23:09 Outpatient R VUKEITH BELLO [facility] [id number] [facility] 2023-12-11 10:00:00 2023-12-11 17:23:09 Office Visit Keith Vu [facility] 1.840.114 350.1.13.10 4.2.7.2.686 [id number] [facility] 2023-12-11 00:00:00 2023-12-11 00:00:00 Orders Only Doctor Unassigned, [place] [facility] 1.840.114 350.1.13.10 4.2.7.2.686 [id number] [facility] 2023-12-11 00:00:00 2023-12-11 00:00:00 Letter (Out) Keith Vu [facility] 1.2.840.114 350.1.13.10 4.2.7.2.686 [id number] [facility] 2023-12-08 00:00:00 2023-12-08 00:00:00 (TEL) STLMLC STLMLC [id number] [facility] 2023-09-10 00:00:00 2023-09-10 00:00:00 Orders Only Doctor Unassigned, [place] [facility] 1.2.840.114 350.1.13.10 4.2.7.2.686 [id number] [facility] 2023-07-25 16:27:00 2023-07-25 19:48:00 Emergency X PHUONG STEWART RUST ERT [id number] [facility] 2023-07-25 16:27:00 2023-07-25 19:48:00 Emergency [facility] 1.2.840.114 350.1.13.10 4.2.7.2.686 [id number] [facility] 2023-05-05 00:00:00 2023-05-05 00:00:00 OFFICE VISIT ESTAB PT LEVEL 4 STLMLC STLMLC [id number] [facility] 2022-12-10 00:00:00 2022-12-10 00:00:00 OFFICE VISIT ESTAB PT LEVEL 2 STLMLC STLMLC [id number] [facility] 2022-11-10 00:00:00 2022-11-10 00:00:00 (TEL) STLMLC STLMLC [id number] [facility] 2022-10-15 00:00:00 2022-10-15 00:00:00 (TEL) STLMLC STLMLC [id number] [facility] 2022-10-10 00:00:00 2022-10-10 00:00:00 OFFICE VISIT ESTAB PT LEVEL 5 STLMLC STLMLC [id number] [facility] 2022-07-06 11:22:00 2022-07-06 12:49:00 Emergency X EMERY DOBSON RUST ERT [id number] [facility] 2022-07-06 11:22:00 2022-07-06 12:49:00 Emergency Emery Dobson [facility] 1.2.840.114 350.1.13.10 4.2.7.2.686 [id number] [facility] Results Test Description Test Time Test Comments Results Result Co mments Source [facility] [id number] 22:36:05* Test Item Value Reference Range Interpretation Comme nts TROPONIN I (test code = 6613771934) 0.011 ng/mL <=0.034 PAUL (test code = [...] of biotin. Lab Interpretation (test code = 61820-8) Normal [facility]AL [id number] 22:36:05* Test Item Value Reference Range Interpretation Comme nts NT-proBNP (test code = 09670-4) 412 pg/mL <=125 PAUL (test code = PAUL) Result Indeterminate-Consid er causes of NT-proBNP elevation other than Heart failure such as acute coronary syndrome, pulmonary embolism, pulmonary hypertension, sepsis, stroke, and renal dysfunction. Lab Interpretation (test code = 26038-0) Abnormal [facility] METABOLIC PANEL (67114)2023-07-25 22:26:27* Test Item Value Reference Range Interpretation Comme nts NA (test code = 9540176718) 132 mmol/L 135-145 L K (test code = 3145830224) 3.4 mmol/L 3.5-5.0 L CL (test code = 5174612687) 96 mmol/L 98-108 L CO2 TOTAL (test code = 7307031441) 21 mmol/L 23-31 L AGAP (test code = 0354155356) 15 2-16 BUN (test code = 9593474200) 14 mg/dL 7-23 GLUCOSE (test code = 3060031771) 81 mg/dL 70-110 CREATININE (test code = 4523489580) 1.56 mg/dL 0.60-1.25 H TOTAL BILI (test code = 4299520684) 0.9 mg/dL 0.1-1.1 CALCIUM (test code = 9133521300) 9.8 mg/dL 8.6-10.6 T PROTEIN (test code = 0268495064) 6.6 g/dL 6.3-8.2 ALBUMIN (test code = 1431727573) 4.2 g/dL 3.5-5.0 ALK PHOS (test code = 1743113257) 56 U/L 34-122 ALTv (test code = 1742-6) 16 U/L 5-50 AST(SGOT) (test code = 0904754481) 27 U/L 13-40 eGFR (test code = 93060-2) 52.5 mL/min/1.73m2 CKD-EPI eGFR (2020). Assuming creatinine has been stable day-to-day for at least three months, the eGFR indicates Category G3a (45 - 59 mL/min/1.73 m2) Lab Interpretation (test code = 76657-4) Abnormal [facility]AT[facility] [id number] 22:26:27* Test Item Value Reference Range Interpretation Comme nts CK (test code = 1068962214) 161 U/L 33-194 Lab Interpretation (test cod e = 22159-1) Normal [facility] WITH [id number] 22:21:06* Test Item Value Reference Range Interpretation [...] g/dL 31.2-35.0 H RDW-SD (test code = 45552-8) 43.1 fL 38.5-51.6 RDW-CV (test code = 788-0) 13.8 % 12.1-15.4 PLT (test code = 777-3) 278 See_Comment [Automated messa ge] The system which generated this result transmitted reference range: 150 - 328 10*3/?L. The reference range was not used to interpret this result as normal/abnormal. MPV (test code = 56093-7) 10.4 fL 9.8-13.0 NRBC/100 WBC (test code = 8940889578) 0.0 See_Comment [Automated Directed Edge ssage] The system which generated this result transmitted reference range: 0.0 - 10.0 /100 WBCs. The reference range was not used to interpret this result as normal/abnormal. NRBC x10^3 (test code = 6918633034) See_Comment [Automated messa ge] The system which generated this result transmitted reference range: 10*3/?L. The reference range was not used to interpret this result as normal/abnormal. GRAN MAT (NEUT) % (test code = 770-8) 65.8 % IMM GRAN % (test code = 0147485497) 0.30 % LYMPH % (test code = 736-9) 20.6 % MONO % (test code = 5905-5) 10.0 % EOS % (test code = 713-8) 2.8 % BASO % (test code = 706-2) 0.5 % GRAN MAT x10^3(ANC) (test code = 3589133959) 4.92 10*3/uL 1.99-6.95 IMM GRAN x10^3 (test code = 4213922604) 0.00-0.06 LYMPH x10^3 (test code = 731-0) 1.54 10*3/uL 1.09-3.23 MONO x10^3 (test code = 742-7) 0.75 10*3/uL 0.36-1.02 EOS x10^3 (test code = 711-2) 0.21 10*3/uL 0.06-0.53 BASO x10^3 (test code = 704-7) 0.04 10*3/uL 0.01-0.09 Lab Interpretation (test code = 11822-6) Abnormal [facility] Metabolic [id number] 17:00:17* Test Item Value Reference Range Interpretation Comme nts NA (test code = 1880301400) 137 mmol/L 135-145 K (test code = 3789310680) 4.7 mmol/L 3.5-5 CL (test code = 4045043269) 98 mmol/L 98-108 CO2 TOTAL (test code = 2116841525) 28 mmol/L 23-31 AGAP (test code = 1665623354) 2-16 BUN (test code = 3380258915) 12 mg/dL 7-23 GLUCOSE (test code = 9489856693) 100 mg/dL 70-110 CREATININE (test code = 4513329884) 1.09 mg/dL 0.6-1.25 TOTAL BILI (test code = 9167865563) 0.6 mg/dL 0.1-1.1 CALCIUM (test code = 4716262201) 9.6 mg/dL 8.6-10.6 T PROTEIN (test code = 3136528687) 7.9 g/dL 6.3-8.2 ALBUMIN (test code = 7748174861) 4.9 g/dL 3.5-5 ALK PHOS (test code = 5855283996) 88 U/L 34-122 ALTv (test code = 1742-6) 31 U/L 5-50 AST(SGOT) (test code = 0998532371) 38 U/L 13-40 eGFR (test code = 6107553978) mL/min/1.73m2 PAUL (test code = PAUL) Association [...] or urine or abnormalities in imaging tests). [facility] StationLip[facility], [id number] 16:59:57* Test Item Value Reference Range Interpretation Comme nts LIPASE (test code = 7908739037) 48 U/L 0-220 Lab Interpretation (test cod e = 56457-3) Normal [facility] Station[facility] with [id number] 16:47:57* Test Item Value Reference Range Interpretation Comme nts WBC (test code = 6690-2) See_Comment [Automated messa ge] The system which generated this result transmitted reference range: 4.20 - 10.70 10*3/?L. The reference range was not used to interpret this result as normal/abnormal. RBC (test code = 789-8) See_Comment H [Automated messa ge] The system which generated [...] 33.1 g/dL 31.2-35 RDW-SD (test code = 08831-3) 45.4 fL 38.5-51.6 RDW-CV (test code = 788-0) 14.2 % 12.1-15.4 PLT (test code = 777-3) See_Comment [Automated messa ge] The system which generated this result transmitted reference range: 150 - 328 10*3/?L. The reference range was not used to interpret this result as normal/abnormal. MPV (test code = 51103-9) 10.3 fL 9.8-13 NRBC/100 WBC (test code = 5646426982) See_Comment [Automated Directed Edge ssage] The system which generated this result transmitted reference range: 0.0 - 10.0 /100 WBCs. The reference range was not used to interpret this result as normal/abnormal. NRBC x10^3 (test code = 6664573529) See_Comment [Automated messa ge] The system which generated this result transmitted reference range: 10*3/?L. The reference range was not used to interpret this result as normal/abnormal. GRAN MAT (NEUT) % (test code = 770-8) 61.9 % IMM GRAN % (test code = 5871429782) 0.50 % LYMPH % (test code = 736-9) 22.5 % MONO % (test code = 5905-5) 11.8 % EOS % (test code = 713-8) 2.7 % BASO % (test code = 706-2) 0.6 % GRAN MAT x10^3(ANC) (test code = 9105337188) 4.08 10*3/uL 1.99-6.95 IMM GRAN x10^3 (test code = 2868782532) 0.03 10*3/uL 0-0.06 LYMPH x10^3 (test code = 731-0) 1.48 10*3/uL 1.09-3.23 MONO x10^3 (test code = 742-7) 0.78 10*3/uL 0.36-1.02 EOS x10^3 (test code = 711-2) 0.18 10*3/uL 0.06-0.53 BASO x10^3 (test code = 704-7) 0.04 10*3/uL 0.01-0.09 Lab Interpretation (test code = 86917-0) Abnormal [facility] Notes Date/Time Note Provider Source 2024-11-01 11:19:11 Faxes release of medical records per cr D SUPPORT AGENT Kath Coley [facility] 2024-10-08 09:26:35 Missael Brady is a 54 year old male Pt is calling stating that he works out of town but will be in town on October, , and and would like to come in for an appt on one of those days if possible. Pt also states that he had blood work done at [facility] in [place] and would like to know if Dr. Vu can go over the results with him. Patient can be contacted at [phone] Please advise. I Chapin [facility] 2024-08-10 10:46:40 Patient requesting assistance from clinic, states his scheduled appointment must be rescheduled due to a change in his work schedule. 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 His new scheduled off days are from September 19 - September 25 and is requesting to be worked in during this period of time. Please F/u I Kelley [facility] 2024-07-26 08:23:28 Addended by: MARTHA RIVERS RN. on: 07/26/2024 08:23 AM Modules accepted: Orders I Rivers RN [facility] 2024-07-26 08:22:21 Pt will start taking 5mg prednisone daily instead of 10mg. Pt saw pcp and was placed on lisinopril and jardiance this week. Pt will update us on his condition as he takes the new medications. [facility] 2024-07-26 01:15:46 The last lab suggests that he can probably go down on his prednisone to 5 mg daily. That dose shouldn't cause blood sugar to go up. Having said that, he should go to his primary for further testing for diabetes; prednisone may not be the only cause. [facility] 2024-07-25 11:40:13 Routed to provider for assistance. I Rivers RN [facility] 2024-07-25 11:21:37 Missael Brady is a 53 year old male Pt is calling because he went to the ER on 07/22 because he was sluggish, weak and lethargic. They said he was dehydrated and BS was high as well as blood pressure. Pt would like to know if this be from the predisone. Pt is also requesting last lab results and a sooner appt in July Please advise I Menjivar [facility] 2024-05-24 14:20:17 Refill has been sent to pharmacy on file. Future Appointments Date Type Provider Dept 09/16/24 Appointment Keith Vu MD [facility]- Endocrinology Showing future appointments within next 150 days with a meds authorizing provider and meeting all other requirements Martha Rivers RN [facility] 2024-05-24 10:47:35 Missael Brady is a 53 year old male Calling in requesting refill for predniSONE 10 mg tablet Please contact and advise. [phone] (home) [facility] [address] [place] [id number] T [facility] 2024-04-15 10:30:00 Images from the original note were not included. Venipuncture collection performed by clean technique on the right anticubitus. Total of 1 attempts were made. Slight pressure and a bandage/dressing were applied to the site(s). The patient experienced no complications. The following specimens were processed according to instructions and sent to [facility] per lab order on 04/15/2024 : LT BLUE SST RED LAV 2 PPT DK GREEN (LiHep) DK GREEN (SodH) MORRIS DK BLUE (K2) DK BLUE (S) ACD Blood Culture NIPT/NTD T [facility]"
[2024-12-03] MEDS ORDERED: NA CHLORIDE 0.9% 1,000 ML ONE (10:29)
[2024-12-03 10:37] LABS: Absolute Eosinophils 0.4 K/uL (0-0.5); Absolute Lymphocytes (CBC) 0.7 K/uL (0.7-4.9); Absolute Monocytes 0.5 K/uL (0.1-1.3); Absolute Neutrophil 6.7 K/uL (1.8-8.0); Basophils % 0.2 % (0-1.3); Eosinophils % 4.3 % (0-4.4); Hematocrit 45.6 % (39.6-49.0); Hemoglobin 15.6 g/dL (13.6-17.9); Lymphocytes % 8.4 % (15.3-44.8); MCH 30.6 pg (27.0-35.0); MCHC 34.3 g/dL (32.0-36.0); MCV 89.4 fL (80-100); MPV 8.3 fL (7.6-11.3); Neutrophils % 81.1 % (41.7-73.7); Platelets 194 thou/uL (152-406); RBC Red Blood Cell Count 5.11 M/uL (4.33-5.43); Red Cell Distribution Width 14.4 % (12.1-15.2)
--- NOTE | 2024-12-03 10:49 | RAD REPORT ---
EXAMINATION: CT ABDOMEN AND PELVIS WITHOUT CONTRAST CLINICAL INDICATION: FLANK PAIN TECHNIQUE: CT abdomen and pelvis was performed, without IV contrast, as per department protocol. Axia l, sagittal and coronal reconstructions were obtained. One or more of the following dose reduction techniques were used: Automated exposure control, adjustment of the mA and kV according to the patien t size, and iterative reconstruction. Unless otherwise specified, incidental findings do not require dedicated imaging follow-up. COMPARISON: No prior exam. FINDINGS: The lack of intravenous contrast limits the sensitivity of this exam for evaluation of solid visceral organs, vascular structures, and retroperitoneum. LOWER CHEST: The visualized lung bases are clear. LIVER:Normal in size and contour. No focal lesion. Grossly unremarkable gallbladder. SPLEEN: Normal size. No focal lesion. PANCREAS: No mass, ductal dilation, or rock-pancreatic fluid. ADRENALS: Normal; no mass. KIDNEYS AND URETERS: Right nephrectomy. Punctate calyceal stones left kidney without hydronephrosis. URINARY BLADDER: Normal contour. GASTROINTESTINAL TRACT: No evidence of bowel obstruction, significant free fluid, free air or abscess . There is mild diverticulosis coli of the sigmoid colon without diverticulitis. APPENDIX: Normal appendix. LYMPH NODES: No lymphadenopathy. MUSCULOSKELETAL: Mild multilevel spinal degenerative changes. IMPRESSION: Punctate left nephrolithiasis noted without hydronephrosis. Right nephrectomy. Sigmoid diverticulosis coli without diverticulitis.
[2024-12-03 10:51] LABS: ALT/SGPT 25 U/L (16-61); Albumin 3.8 g/dL (3.4-5.0); Albumin/Globulin Ratio 1.2 (1.1-1.8); Alkaline Phosphatase 92 U/L (45-117); Anion Gap 10.3 mEq/L (5.0-15.0); BUN Blood Urea Nitrogen 14 mg/dL (7-18); Bicarbonate 23 mEq/L (21-32); Bilirubin Total 0.7 mg/dL (0.2-1.0); Globulin 3.3 g/dL (2.3-3.5); Glomerular Filtration Rate 66 ml/min (=/>90); Glucose Level 102 mg/dL (74-106); Lipase 27 U/L (13-75); Magnesium 2.1 mg/dL (1.6-2.4); Potassium 3.3 mEq/L (3.5-5.1); Protein, Total 7.1 g/dL (6.4-8.2); Sodium Level 139 mEq/L (136-145); Troponin High Sensitivity 9.6 pg/mL (<58.9)
[2024-12-03 10:52] LABS: AST/SGOT < 10 U/L (15-37)
[2024-12-03 11:55] LABS: Specific Gravity > 1.030 (1.005-1.030); Sqamous Epithelial None Seen /HPF (None Seen); Urine Bacteria None Seen /HPF (<20); Urine Bilirubin NEGATIVE (Negative); Urine Blood 1+ (Negative); Urine Clarity Clear (Clear); Urine Color Light-Yellow (Yellow); Urine Culture Reflex Order NOT NEEDED; Urine Glucose 4+ (Over) (Negative); Urine Ketones NEGATIVE (Negative); Urine Microscopic Reflex YN ORDER UMIC; Urine Nitrite NEGATIVE (Negative); Urine Protein NEGATIVE (Negative); Urine RBC <5 /HPF (None Seen); Urine Urobilinogen Normal (Normal); Urine WBC <5 /HPF (<5)
--- NOTE | 2024-12-03 12:25 | EDPHYS ---
Physician Documentation [facility] Name: Missael Quinteros Age: 54 yrs Sex: Male : 1970 Arrival Date: 12/03/2024 Time: 09:45 Bed 5 Private MD: ED Physician Favio Lopez HPI: 12/03 10:26 This 54 yrs old Male presents to ER via Ambulatory with complaints of General rt Weakness, Flank Pain, Dizziness. 10:26 Patient presents to the ED with about 2 to 3 months of left flank pain rating to the rt abdomen that has been progressively worsening, worsening over the past few days. During the past 3 days, reports a dizziness described as lightheadedness and a weakness. Denies other acute complaints at this time, symptoms are moderate in severity, no other aggravating or alleviating factors.. Historical: - Allergies: 10:00 No Known Allergies; aa5 - PMHx: 10:00 DM; Hypertensive disorder; kidney cancer; Bereket's disease; Prostate problem; aa5 - PSHx: 10:00 right nephrectomy (kidney cancer); aa5 - Immunization history:: Adult Immunizations unknown. - Infectious Disease History:: Denies. - Social history:: Smoking status: Patient denies any tobacco usage or history of. - Family history:: not pertinent. ROS: 10:26 Constitutional: Negative for fever, chills, and weight loss, Cardiovascular: Negative rt for chest pain, palpitations, and edema, Respiratory: Negative for shortness of breath, cough, wheezing, and pleuritic chest pain, MS/Extremity: Negative for injury and deformity, Skin: Negative for injury, rash, and discoloration, 10:26 Back: Positive for flank pain, Negative for injury or acute deformity, 10:26 Neuro: Positive for near syncope, weakness, Exam: 10:26 Constitutional: This is a well developed, well nourished patient who is awake, alert, rt and in no acute distress. Head/Face: Normocephalic, atraumatic. Chest/axilla: Normal chest wall appearance and motion. Nontender with no deformity. No lesions are appreciated. Cardiovascular: Regular rate and rhythm with a normal S1 and S2. No gallops, murmurs, or rubs. Normal PMI, no JVD. No pulse deficits. Respiratory: Lungs have equal breath sounds bilaterally, clear to auscultation and percussion. No rales, rhonchi or wheezes noted. No increased work of breathing, no retractions or nasal flaring. Abdomen/GI: Soft, non-tender, with normal bowel sounds. No distension or tympany. No guarding or rebound. No evidence of tenderness throughout. Skin: Warm, dry with normal turgor. Normal color with no rashes, no lesions, and no evidence of cellulitis. MS/ Extremity: Pulses equal, no cyanosis. Neurovascular intact. Full, normal range of motion. Neuro: Awake and alert, GCS 15, oriented to person, place, time, and situation. Cranial nerves II-XII grossly intact. Motor strength 5/5 in all extremities. Sensory grossly intact. Cerebellar exam normal. Normal gait. 10:26 ECG was reviewed by the Attending Physician. Vital Signs: 10:00 BP 143 / 89; Pulse 70; Resp 20 S; Temp 98.2(O); Pulse Ox 96% on R/A; Weight 127.01 kg aa5 (R); Height 6 ft. 0 in. (R); 11:50 BP 146 / 95; Pulse 64; Resp 16; Pulse Ox 96% ; aa5 12:00 BP 145 / 83; Pulse 59; Resp 15; Pulse Ox 97% ; cm10 10:00 Body Mass Index 37.97 (127.01 kg, 182.88 cm) aa5 MDM: 09:55 Medical Screening Exam initiated rt 13:42 Differential diagnosis: Flank pain, ureterolithiasis, nephrolithiasis. Data reviewed: rt vital signs, nurses notes, lab test result(s), radiologic studies. I considered the following discharge prescriptions or medication management in the emergency department Medications were administered in the Emergency Department. See MAR. Independent interpretation of the following test(s) in the Emergency Department CT Scan: My interpretation is Ureterolithiasis intermittent rotation of CT scan images. Care significantly affected by the following chronic conditions: Diabetes. Counseling: I had a detailed discussion with the patient and/or guardian regarding the historical points, exam findings, and any diagnostic results supporting the discharge/admit diagnosis, lab results, radiology results, the need for outpatient follow up, to return to the emergency department if symptoms worsen or persist or if there are any questions or concerns that arise at home. Response to treatment: the patient's symptoms have markedly improved after treatment. 12/03 10:08 Order name: CBC with Diff; Complete Time: 10:56 rt 12/03 10:08 Order name: CMP; Complete Time: 10:56 rt 12/03 10:08 Order name: Lipase; Complete Time: 10:56 rt 12/03 10:08 Order name: Urinalysis w/ reflexes; Complete Time: 11:59 rt 12/03 10:08 Order name: Magnesium; Complete Time: 10:56 rt 12/03 10:08 Order name: Troponin High Sensitivity; Complete Time: 10:56 rt 12/03 10:08 Order name: CT Abd/Pelvis - Without Contrast; Complete Time: 10:56 rt 12/03 10:08 Order name: EKG; Complete Time: 10:09 rt 12/03 10:08 Order name: IV Saline Lock; Complete Time: 10:32 rt 12/03 10:08 Order name: Labs collected and sent; Complete Time: 10:32 rt 12/03 10:08 Order name: EKG - Nurse/Tech; Complete Time: 10:32 rt EC:26 Rate is 70 beats/min. Rhythm is regular, Normal Sinus Rhythm with No ectopy. QRS Jermyn rt is Normal. KS interval is normal. QRS interval is normal. QT interval is normal. No Q waves. T waves are Normal. No ST changes noted. Interpreted by me. Administered Medications: 10:53 Drug: NS 0.9% IV 1000 ml IV at 1 bolus Per protocol; to be given as a bolus over 60 aa5 minutes Route: IV; Rate: 1 bolus; Site: right forearm; 12:19 Follow up: Response: No adverse reaction; IV Status: Completed infusion; IV Intake: cm10 1000ml Disposition Summary: 12/03/24 12:24 Discharge Ordered Notes: Location: Home rt Problem: an ongoing problem rt Symptoms: have improved rt Condition: Stable rt Diagnosis - Flank pain rt - Near syncope rt Followup: rt - With: Private Physician - When: 2 - 3 days - Reason: Discharge Instructions: - Discharge Summary Sheet rt - Flank Pain, Adult rt - Near-Syncope rt Forms: - Medication Reconciliation Form rt - Antibiotic Education rt - Prescription Opioid Use rt - Patient Portal Instructions rt - Leadership Thank You Letter rt Signatures: Dispatcher [employer] Alea Main RN RN aa5 Favio Lopez MD MD rt Miriam Yanez RN cm10 Corrections: (The following items were deleted from the chart) 10:02 10:00 PSHx: right kidney removal due to cancer; aa5 aa5 10: 10:09 CBC+H.LAB.BRZ ordered. EDMS EDMS 10: 10:09 COMPREHENSIVE METABOLIC PANEL+C.LAB.BRZ ordered. EDMS EDMS 10: 10:09 LIPASE+C.LAB.BRZ ordered. EDMS EDMS 10: 10:09 Urinalysis+U.LAB.BRZ ordered. EDMS EDMS 10: 10:09 MAGNESIUM+C.LAB.BRZ ordered. EDMS EDMS 10: 10:09 Troponin High Sensitivity+C.LAB.BRZ ordered. EDMS EDMS
--- NOTE | 2024-12-03 12:25 | ER ---
Nurse's Notes [facility] Name: Missael Quinteros Age: 54 yrs Sex: Male : 1970 Arrival Date: 12/03/2024 Time: 09:45 Bed 5 Private MD: Diagnosis: Flank pain;Near syncope Presentation: 12/03 10:00 Acuity: BOBBY 3 aa5 10:00 Method Of Arrival: Ambulatory aa5 10:00 Coronavirus screen: At this time, the client does not indicate any symptoms associated aa5 with coronavirus-19. Ebola Screen: Patient denies travel to an Ebola-affected area in the 21 days before illness onset. Initial Sepsis Screen: Does the patient meet any 2 criteria? No. Patient's initial sepsis screen is negative. Does the patient have a suspected source of infection? No. Patient's initial sepsis screen is negative. Risk Assessment: Do you want to hurt yourself or someone else? Patient reports no desire to harm self or others. Onset of symptoms was November 2024. 10:00 Chief complaint: Patient states: left low back pain radiating to left groin x 2-3 aa5 months ago that has gotten gradually worse. Pt also reports generalized weakness and feeling lightheaded x 2 weeks ago. Triage Assessment: 12:34 General: Behavior is calm, cooperative. cm10 Historical: - Allergies: 10:00 No Known Allergies; aa5 - PMHx: 10:00 DM; Hypertensive disorder; kidney cancer; Bereket's disease; Prostate problem; aa5 - PSHx: 10:00 right nephrectomy (kidney cancer); aa5 - Immunization history:: Adult Immunizations unknown. - Infectious Disease History:: Denies. - Social history:: Smoking status: Patient denies any tobacco usage or history of. - Family history:: not pertinent. Screenin:00 [facility] ED Fall Risk Assessment (Adult) History of falling in the last 3 months, aa5 including since admission No falls in past 3 months (0 pts) Confusion or Disorientation No (0 pts) Intoxicated or Sedated No (0 pts) Impaired Gait No (0 pts) Mobility Assist Device Used No (0 pt) Altered Elimination No (0 pt) Score/Fall Risk Level 0 - 2 = Low Risk Oriented to surroundings, Maintained a safe environment, Educated pt \T\ family on fall prevention, incl call for assistance when getting out of bed, Assessed \T\ reinforced patient's understanding of fall precautions. Abuse screen: Denies threats or abuse. Nutritional screening: No deficits noted. Tuberculosis screening: No symptoms or risk factors identified. Assessment: 10:00 General: Appears in no apparent distress. comfortable. Pain: Complains of pain in left aa5 low back and left mid back Pain radiates to pelvis Pain Quality of pain is described as sharp, Pain began States pain began 2-3 months ago. Is intermittent. Neuro: Level of Consciousness is awake, alert, obeys commands. Cardiovascular: Patient's skin is warm and dry. Respiratory: Respiratory effort is even, unlabored, Respiratory pattern is regular. GI: Reports nausea, Patient currently denies vomiting. : No signs and/or symptoms were reported regarding the genitourinary system. EENT: No signs and/or symptoms were reported regarding the EENT system. Musculoskeletal: No signs and/or symptoms reported regarding the musculoskeletal system. 10:53 Reassessment: Patient is alert, oriented x 3, equal unlabored respirations, skin aa5 warm/dry/pink. Pt back from CT scan . 11:50 Reassessment: Patient is alert, oriented x 3, equal unlabored respirations, skin aa5 warm/dry/pink. Patient states feeling better. 12:33 Reassessment: Patient appears in no apparent distress at this time. Patient is alert, cm10 oriented x 3, equal unlabored respirations, skin warm/dry/pink. Patient states feeling better. Patient states symptoms have improved. Vital Signs: 10:00 BP 143 / 89; Pulse 70; Resp 20 S; Temp 98.2(O); Pulse Ox 96% on R/A; Weight 127.01 kg aa5 (R); Height 6 ft. 0 in. (R); 11:50 BP 146 / 95; Pulse 64; Resp 16; Pulse Ox 96% ; aa5 12:00 BP 145 / 83; Pulse 59; Resp 15; Pulse Ox 97% ; cm10 10:00 Body Mass Index 37.97 (127.01 kg, 182.88 cm) aa5 ED Course: 09:50 Patient arrived in ED. sj2 09:51 Favio Lopez MD is Attending Physician. rt 09:53 Alea Joshua, SUGEY is Primary Nurse. aa5 09:59 Arm band placed on Patient placed in an exam room, on a stretcher. aa5 10:00 Patient has correct armband on for positive identification. Bed in low position. Call aa5 light in reach. Side rails up X 1. Client placed on continuous cardiac and pulse oximetry monitoring. NIBP monitoring applied. manager monitoring on. Pulse ox on. NIBP on. 10:03 Triage completed. aa5 10:32 Troponin High Sensitivity Sent. aa5 10:32 Magnesium Sent. aa5 10:32 CBC with Diff Sent. aa5 10:32 CMP Sent. aa5 10:32 Lipase Sent. aa5 10:33 Initial lab(s) drawn, by me, sent to lab. EKG done, by ED staff, reviewed by Favio Lopez MD. Inserted saline lock: 20 gauge in right forearm, using aseptic technique. Blood collected. Flushed with 10 mL NS. 10:42 CT Abd/Pelvis - Without Contrast In Process Unspecified. EDMS 11:57 Primary Nurse role handed off by Alea Joshua RN cm10 11:57 Miriam Yanez, RN is Primary Nurse. cm10 12:20 ED physician to see patient. cm10 12:33 No provider procedures requiring assistance completed. IV discontinued, intact, cm10 bleeding controlled, No redness/swelling at site. Pressure dressing applied. 12:34 Provided Education on: Follow-up instruction. cm10 Administered Medications: 10:53 Drug: NS 0.9% IV 1000 ml IV at 1 bolus Per protocol; to be given as a bolus over 60 aa5 minutes Route: IV; Rate: 1 bolus; Site: right forearm; 12:19 Follow up: Response: No adverse reaction; IV Status: Completed infusion; IV Intake: cm10 1000ml Medication: 10:41 VIS not applicable for this client. aa5 Intake: 12:19 IV: 1000ml; Total: 1000ml. cm10 Outcome: 12:24 Discharge ordered by MD. rt 12:33 Discharged to home ambulatory, cm10 12:33 Condition: good 12:33 Discharge instructions given to patient, Instructed on discharge instructions, follow up and referral plans. Demonstrated understanding of instructions, follow-up care, 12:34 Patient left the ED. cm10 Signatures: Dispatcher [employer] EDNE Alea Joshua RN RN aa5 [place], Ryan, MD MD rt Miriam Yanez RN RN cm10 Rik Bui sj2 Corrections: (The following items were deleted from the chart) 10:02 10:00 PSHx: right kidney removal due to cancer; aa5 aa5 10: 10:03 Ebola Screen: Patient denies travel to an Ebola-affected area in the 21 days aa5 before illness onset. aa5 : 10:03 Coronavirus screen: At this time, the client does not indicate any symptoms aa5 associated with coronavirus-19. aa5 : 10:03 Initial Sepsis Screen: Does the patient meet any 2 criteria? No. Patient's aa5 initial sepsis screen is negative. Does the patient have a suspected source of infection? No. Patient's initial sepsis screen is negative. aa5 : 10:03 Risk Assessment: Do you want to hurt yourself or someone else? Patient reports no aa5 desire to harm self or others. aa5 : 10:03 Onset of symptoms was November 2024 aa5 aa5 10: 10:03 Method Of Arrival: Ambulatory aa5 aa5 : 10:03 Acuity: BOBBY 3 aa5 aa5
[2024-12-03 12:39] VITALS: TEMP 98.2
[2024-12-03 12:41] VITALS: BP 145/83; O2SAT 97
== END 2024-12-03 12:34 | disposition home or self-care (01) ==
LOC: ER 09:45
DX: R10.9 Unspecified abdominal pain (principal); R55 Syncope and collapse; R53.1 Weakness
CPT/HCPCS: 93005; 85025; 81001; 36415; 83735; 84484; 83690; 80053; 74176; 96360; 99285; J7030